=== PATIENT | female | born 1935 | race Caucasian/White ===

== ENCOUNTER 2016-10-05 09:12 | Outpatient (CLI) | payer MEDICARE, OTHER | END 2016-10-05 09:13 | disposition home or self-care (01) | DX: R10.9 Unspecified abdominal pain (principal) ==

== ENCOUNTER 2016-10-30 07:55 | Outpatient (CLI) | payer MEDICARE, OTHER | END 2016-10-30 07:56 | disposition home or self-care (01) | DX: N39.0 Urinary tract infection, site not specified (principal) ==

== ENCOUNTER 2018-10-24 15:48 | Emergency (ER) | payer MEDICARE, OTHER ==
[2018-10-24 16:54] LABS: BILIRUBIN,URINE NEGATIVE (NEGATIVE); GLUCOSE, URINE (UA) NEGATIVE (NEGATIVE); KETONES,URINE (UA) NEGATIVE (NEGATIVE); LEUKOCYTE ESTERASE, URINE MODERATE (NEGATIVE); NITRITE,URINE NEGATIVE (NEGATIVE); OCCULT BLOOD,URINE LARGE (NEGATIVE); PROTEIN,URINE TRACE mg/dL (NEGATIVE); UROBILINOGEN,URINE 0.2 (NORMAL) E.U./dL (NORMAL)
[2018-10-24 16:55] LABS: CLARITY,URINE HAZY (CLEAR)
[2018-10-24 17:02] LABS: RBC,URINE TNTC /HPF (0-5); SQUAMOUS EPITHELIAL CELL,UR NONE SEEN (<= Few)
[2018-10-24 17:03] LABS: BACTERIA,URINE Rare /HPF (None Seen); WBC CLUMPS,URINE PRESENT
[2018-10-24] MEDS ORDERED: cephALEXin 250 MG CAPSULE PO STA (17:42)
[2018-10-24] MEDS ORDERED: PHENAZOPYRIDINE 100 MG TABLET PO STA (17:42)
--- NOTE | 2018-10-24 17:44 | ED Physician Documentation ---
PD HPI FEMALE - Stated complaint Stated Complaint: FEMALE - Chief complaint Chief Complaint: Abd Pain - Additional information Additional information: 83-year-old female presents the emergency department with 3 days of increasing dysuria and suprapubic pain with urgency. The patient's Noticed blood with the episodes a urine. Symptoms have progressively worsened but the blood has mostly resolved. The patient denies fevers, flank pain, nausea, vomiting. Symptoms are described as moderate. No other associated symptoms. No relieving factors Review of Systems Constitutional: denies: Fever, Chills Eyes: denies: Discharge Ears: denies: Ear pain Nose: denies: Congestion Throat: denies: Sore throat Cardiac: denies: Chest pain / pressure GI: reports: Abdominal Pain (Suprapubic cramping with urination, otherwise no ongoing abdominal pain) : reports: Dysuria, Frequency, Hematuria Skin: denies: Rash Musculoskeletal: denies: Neck pain Neurologic: denies: Generalized weakness PD PAST MEDICAL HISTORY - Present Medications Home Medications: Ambulatory Orders Medication Instructions Recorded Confirmed Alendronate [Fosamax] 70 mg PO ONCE 10/24/18 10/24/18 Allopurinol 100 mg PO DAILY 10/24/18 10/24/18 Atenolol 50 mg PO DAILY 10/24/18 10/24/18 Cephalexin [Keflex] 500 mg PO BID #14 capsule 10/24/18 Clopidogrel [Plavix] 75 mg PO DAILY 10/24/18 10/24/18 Furosemide 40 mg PO DAILY 10/24/18 10/24/18 Levothyroxine Sodium [Synthroid] 25 mcg PO DAILY 10/24/18 10/24/18 Simvastatin 40 mg PO DAILY 10/24/18 10/24/18 Telmisartan [Micardis] 40 mg PO 10/24/18 - Allergies Allergies/Adverse Reactions: Allergies Allergy/AdvReac Type Severity Reaction Status Date / Time aspirin AdvReac Emesis Verified 10/24/18 16:13 PD ED PE NORMAL - General General: Alert and oriented X 3, No acute distress - HEENT HEENT: Atraumatic, PERRL, EOMI, Ears normal - Neck Neck: Supple, no meningeal sign - Cardiac Cardiac: RRR, Strong equal pulses - Abdomen Abdomen: Soft, Non tender - Back Back: No CVA TTP - Derm Derm: Normal color - Extremities Extremities: No deformity - Neuro Neuro: Alert and oriented X 3, Normal speech Results - Vitals Vitals: Vital Signs - 24 hr 10/24/18 10/24/18 16:07 16:10 Temperature 36.6 C 36.6 C Heart Rate 70 70 Respiratory 20 20 Rate Blood Pressure 143/75 H 143/75 H O2 Saturation 96 96 Oxygen O2 Source Room air - Labs Labs: Laboratory Tests 10/24/18 16:22 Urine Color YELLOW Urine Clarity HAZY Urine pH 6.0 Ur Specific Branscomb 1.015 Urine Protein TRACE Urine Glucose (UA) NEGATIVE Urine Ketones NEGATIVE Urine Occult Blood LARGE H Urine Nitrite NEGATIVE Urine Bilirubin NEGATIVE Urine Urobilinogen 0.2 (NORMAL) Ur Leukocyte Esterase MODERATE H Urine RBC TNTC H Urine WBC >25 H Urine WBC Clumps PRESENT Ur Squamous Epith Cells NONE SEEN Urine Bacteria Rare Ur Microscopic Review INDICATED Urine Culture Comments INDICATED PD MEDICAL DECISION MAKING - ED course ED course: The patient appears to have an acute urinary tract infection and her symptoms are consistent with a urinary tract infection. The patient will be given a course of an antibiotic. Given the patient's history of prior cancer I recommended follow-up with primary care for reevaluation and if her symptoms not improving she may need a referral to urology to further investigate her symptoms. The patient understands and agrees. I discussed warning signs and recommended returning for any worsening or any concerns Departure - Departure Disposition: 01 Home, Self Care Clinical Impression: Acute cystitis with hematuria Condition: Good Instructions: Hematuria Poss Causes, ED Hematuria, ED Infec Bladder Female Ch Follow-Up: Danielle Izaguirre DO [Primary Care Provider] - Within 1 week (Please follow-up with your primary care physician this coming week for recheck and reevaluation. Please ask her to repeat your urinalysis. If your symptoms are not improving you may need a referral to urology to further assess your symptoms) Prescriptions: Cephalexin [Keflex] 500 mg PO BID #14 capsule Comments: Please return to the emergency department immediately for any worsening or any concerns
[2018-10-24 17:56] VITALS: BP 138/72
== END 2018-10-24 17:54 | disposition home or self-care (01) ==
LOC: ED 15:48
DX: N30.01 Acute cystitis with hematuria (principal)
CPT/HCPCS: 81001; 87077; 87086; 87181; 99283; A9270; 81003

== ENCOUNTER 2018-11-28 08:00 | Outpatient (CLI) | payer MEDICARE, OTHER ==
[2018-11-28 18:48] LABS: BILIRUBIN,URINE NEGATIVE (NEGATIVE); GLUCOSE, URINE (UA) NEGATIVE (NEGATIVE); KETONES,URINE (UA) NEGATIVE (NEGATIVE); LEUKOCYTE ESTERASE, URINE MODERATE (NEGATIVE); NITRITE,URINE POSITIVE (NEGATIVE); OCCULT BLOOD,URINE LARGE (NEGATIVE); PROTEIN,URINE 100 mg/dL (NEGATIVE); UROBILINOGEN,URINE 0.2 (NORMAL) E.U./dL (NORMAL)
[2018-11-28 18:52] LABS: CLARITY,URINE CLOUDY (CLEAR)
[2018-11-28 19:04] LABS: BACTERIA,URINE Few /HPF (None Seen); EPITHELIAL CELLS,UR FEW Transitional /HPF (<= Few); SQUAMOUS EPITHELIAL CELL,UR FEW Squamous (<= Few)
== END 2018-11-28 23:59 | disposition home or self-care (01) ==
LOC: LAB.WCP 08:00
PROVIDERS: ATTEND Family Medicine
DX: R31.9 Hematuria, unspecified (principal)
CPT/HCPCS: 81001

== ENCOUNTER 2018-12-03 08:00 | Outpatient (CLI) | payer MEDICARE, OTHER | END 2018-12-03 23:59 | disposition home or self-care (01) | LOC: LAB.WCP 08:00 | PROVIDERS: ATTEND Family Medicine | DX: R31.9 Hematuria, unspecified (principal) | CPT/HCPCS: 87086 ==

== ENCOUNTER 2019-08-26 14:09 | Outpatient (CLI) | payer MEDICARE, OTHER ==
[2019-08-26 18:21] LABS: BASOPHILS # (AUTO) 0.1 10^3/uL (0.0-0.1); BASOPHILS % (AUTO) 0.8 %; EOSINOPHILS # (AUTO) 0.1 10^3/uL (0.0-0.7); EOSINOPHILS % (AUTO) 1.7 %; HGB - HEMOGLOBIN 13.4 g/dL (12.0-16.0); LYMPHOCYTES # (AUTO) 1.5 10^3/uL (1.5-3.5); LYMPHOCYTES % (AUTO) 21.3 %; MEAN CORPUSCULAR HEMOGLOBIN 31.3 pg (27.0-31.0); MEAN CORPUSCULAR HGB CONC 32.4 g/dL (32.0-36.0); MEAN CORPUSCULAR VOLUME 96.5 fL (81.0-99.0); MEAN PLATELET VOLUME 11.3 fL (7.9-10.8); MONOCYTES # (AUTO) 0.5 10^3/uL (0.0-1.0); MONOCYTES % (AUTO) 7.3 %; NEUTROPHILS # (AUTO) 4.9 10^3/uL (1.5-6.6); NEUTROPHILS % (AUTO) 68.1 %; PLT - PLATELET COUNT 184 10^3/uL (130-450); RED BLOOD COUNT 4.28 10^6/uL (4.20-5.40); RED CELL DISTRIBUTION WIDTH 15.2 % (12.0-15.0); WHITE BLOOD COUNT 7.2 x10^3/uL (4.8-10.8)
[2019-08-26 18:53] LABS: ALBUMIN 3.8 g/dL (3.2-5.5); ALBUMIN/GLOBULIN RATIO 1.1 (1.0-2.2); BILIRUBIN,TOTAL 0.6 mg/dL (0.2-1.0); CALCIUM 10.1 mg/dL (8.5-10.3); CREATININE 1.8 mg/dL (0.4-1.0); TOTAL PROTEIN 7.4 g/dL (6.7-8.2); URIC ACID 5.5 mg/dL (2.6-7.2)
[2019-08-26 19:09] LABS: HB2 TOTAL 13.3 g/dL; HEMOGLOBIN A1C 0.61 g/dL; HEMOGLOBIN A1C % 6.3 % (4.6-6.2)
== END 2019-08-26 23:59 | disposition home or self-care (01) ==
LOC: LAB.WCP 14:09
PROVIDERS: ATTEND Family Medicine
DX: E11.9 Type 2 diabetes mellitus without complications (principal); E89.0 Postprocedural hypothyroidism; M10.9 Gout, unspecified
CPT/HCPCS: 36415; 80053; 83036; 84439; 84481; 84550; 85025

== ENCOUNTER 2019-10-07 14:50 | Outpatient (CLI) | payer MEDICARE, OTHER ==
[2019-10-07 19:40] LABS: BILIRUBIN,URINE NEGATIVE (NEGATIVE); CLARITY,URINE CLEAR (CLEAR); GLUCOSE, URINE (UA) NEGATIVE (NEGATIVE); KETONES,URINE (UA) NEGATIVE (NEGATIVE); LEUKOCYTE ESTERASE, URINE LARGE (NEGATIVE); NITRITE,URINE POSITIVE (NEGATIVE); OCCULT BLOOD,URINE MODERATE (NEGATIVE); PROTEIN,URINE 100 mg/dL (NEGATIVE); UROBILINOGEN,URINE 0.2 (NORMAL) E.U./dL (NORMAL)
[2019-10-07 19:48] LABS: BACTERIA,URINE Many /HPF (None Seen); SQUAMOUS EPITHELIAL CELL,UR NONE SEEN (<= Few)
== END 2019-10-07 23:59 | disposition home or self-care (01) ==
LOC: LAB.WCP 14:50
PROVIDERS: ATTEND Family Medicine
DX: R31.9 Hematuria, unspecified (principal)
CPT/HCPCS: 81001; 81003; 87077; 87086; 87181

== ENCOUNTER 2019-10-28 07:00 | Outpatient (CLI) | payer MEDICARE, OTHER | END 2019-10-28 23:59 | disposition home or self-care (01) | LOC: LAB.R 07:00 | PROVIDERS: ATTEND Family Medicine | DX: N39.0 Urinary tract infection, site not specified (principal) | CPT/HCPCS: 87077; 87086; 87181 ==

== ENCOUNTER 2020-03-29 19:37 | Outpatient (CLI) | payer MEDICARE, OTHER | END 2020-03-29 19:38 | disposition critical access hospital (66) | LOC: EMS 19:37 | PROVIDERS: ATTEND Surgery | DX: R41.82 Altered mental status, unspecified (principal); K92.1 Melena; R53.1 Weakness | CPT/HCPCS: A0425; A0427 ==

== ENCOUNTER 2020-03-29 19:59 | Inpatient (IN) | payer MEDICARE, OTHER ==
--- NOTE | 2020-03-29 20:36 | ED Physician Documentation ---
PD HPI GI BLEED - Stated complaint Stated Complaint: GI BLEED - Chief complaint Chief Complaint: Abd Pain - History obtained from History obtained from: Patient, EMS - History of Present Illness Timing - onset: How many days ago (4) Timing - duration: Days Timing - details: Abrupt onset Pain level max: 0 Pain level now: 0 Associated symptoms: Black/tarry stool, Diarrhea Similar symptoms before: Has not had sx before Recently seen: Not recently seen - Additional information Additional information: BIBA. Patient c/o 4 days of diarrhea, "bloody stools" (cannot tell me if bright red or dark, but medics report significant amount dark, tarry stool on scene), "falling down". She is limited historian do to possible confusion (frequently provides tangential or even irrelevant answers to most questions). 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 - Present Medications Home Medications: Ambulatory Orders Medication Instructions Recorded Confirmed Alendronate [Fosamax] 70 mg PO ONCE 10/24/18 10/24/18 Cephalexin [Keflex] 500 mg PO BID #14 capsule 10/24/18 Clopidogrel [Plavix] 75 mg PO DAILY 10/24/18 10/24/18 Furosemide 40 mg PO DAILY 10/24/18 10/24/18 Levothyroxine Sodium [Synthroid] 25 mcg PO DAILY 10/24/18 10/24/18 Simvastatin 40 mg PO DAILY 10/24/18 10/24/18 Telmisartan [Micardis] 40 mg PO 10/24/18 allopurinoL [Allopurinol] 100 mg PO DAILY 10/24/18 10/24/18 atenoloL [Atenolol] 50 mg PO DAILY 10/24/18 10/24/18 - Allergies Allergies/Adverse Reactions: Allergies Allergy/AdvReac Type Severity Reaction Status Date / Time cephalexin Allergy Unknown Verified 10/27/18 12:32 citalopram [From Celexa] Allergy Unknown Verified 10/27/18 12:32 doxycycline Allergy Unknown Verified 10/27/18 12:32 fluticasone [From Flonase] Allergy Unknown Verified 10/27/18 12:32 meperidine [From Demerol] Allergy Unknown Verified 10/27/18 12:32 Penicillins Allergy Unknown Verified 10/27/18 12:32 Sulfa (Sulfonamide Allergy Unknown Verified 10/27/18 12:32 Antibiotics) aspirin AdvReac Emesis Verified 10/24/18 16:13 scotch broom Allergy Unknown Uncoded 10/27/18 12:32 - Social History Does the pt smoke?: No Smoking Status: Never smoker Does the pt drink ETOH?: No Does the pt have substance abuse?: No - Immunizations Immunizations are current?: Yes PD ED PE NORMAL - Vitals Vital signs reviewed: Yes - General General: Alert and oriented X 3 (answers appropriately to self, location, month. However, most answers to HPI questions are tangential or irrelevant to question), Well developed/nourished - HEENT HEENT: Moist mucous membranes, Other (pale conjunctiva) - Neck Neck: Supple, no meningeal sign - Cardiac Cardiac: RRR, No murmur - Respiratory Respiratory: No respiratory distress, Clear bilaterally - Abdomen Abdomen: Soft, Non tender - Back Back: No CVA TTP - Derm Derm: Other (pale) - Extremities Extremities: No edema Results - Vitals Vitals: Vital Signs - 24 hr 03/29/20 03/29/20 03/29/20 20:12 22:15 22:24 Temperature 36.2 C L 36.4 C L 36.6 C Heart Rate 91 91 95 Respiratory 12 18 13 Rate Blood Pressure 116/53 L 114/47 L 130/78 O2 Saturation 100 Oxygen O2 Source Room air - Labs Labs: Microbiology 03/29/20 21:30 Occult Blood - Final Stool Laboratory Tests 03/29/20 03/29/20 03/29/20 20:55 20:59 20:59 WBC 11.0 H RBC 1.54 L Hgb 5.0 L* Hct 15.2 L* MCV 98.7 MCH 32.5 H MCHC 32.9 RDW 15.4 H Plt Count 198 MPV 11.2 H Neut # (Auto) 9.7 H Lymph # (Auto) 0.7 L Jenkins # (Auto) 0.5 Eos # (Auto) 0.0 Baso # (Auto) 0.0 Absolute Nucleated RBC 0.15 Nucleated RBC % 1.4 PT 12.0 INR 1.1 APTT 24.3 L Sodium Potassium Chloride Carbon Dioxide Anion Gap BUN Creatinine Estimated GFR (MDRD) Glucose Calcium Total Bilirubin AST ALT Alkaline Phosphatase Ammonia Total Protein Albumin Globulin Albumin/Globulin Ratio Lipase Vitamin B12 Folate TSH Acetaminophen Blood Type B POSITIVE Blood Type Recheck Antibody Screen NEGATIVE Crossmatch IS Only See Detail 03/29/20 03/29/20 03/29/20 20:59 20:59 20:59 WBC RBC Hgb Hct MCV MCH MCHC RDW Plt Count MPV Neut # (Auto) Lymph # (Auto) Jenkins # (Auto) Eos # (Auto) Baso # (Auto) Absolute Nucleated RBC Nucleated RBC % PT INR APTT Sodium 134 L Potassium 4.4 Chloride 104 Carbon Dioxide 19 L Anion Gap 11.0 BUN 95 H* Creatinine 1.8 H Estimated GFR (MDRD) 27 L Glucose 153 H Calcium 8.7 Total Bilirubin 0.5 AST 13 ALT 12 Alkaline Phosphatase 38 L Ammonia < 10.0 Total Protein 5.5 L Albumin 2.9 L Globulin 2.6 Albumin/Globulin Ratio 1.1 Lipase 45 Vitamin B12 Folate TSH 0.37 Acetaminophen < 10 L Blood Type Blood Type Recheck Antibody Screen Crossmatch IS Only 03/29/20 03/29/20 20:59 21:32 WBC RBC Hgb Hct MCV MCH MCHC RDW Plt Count MPV Neut # (Auto) Lymph # (Auto) Jenkins # (Auto) Eos # (Auto) Baso # (Auto) Absolute Nucleated RBC Nucleated RBC % PT INR APTT Sodium Potassium Chloride Carbon Dioxide Anion Gap BUN Creatinine Estimated GFR (MDRD) Glucose Calcium Total Bilirubin AST ALT Alkaline Phosphatase Ammonia Total Protein Albumin Globulin Albumin/Globulin Ratio Lipase Vitamin B12 148 L Folate 11.31 TSH Acetaminophen Blood Type Blood Type Recheck B POSITIVE Antibody Screen Crossmatch IS Only - Rads (name of study) chest xray Radiology: Prelim report reviewed, See rad report PD MEDICAL DECISION MAKING - ED course Complexity details: reviewed results, re-evaluated patient, considered differential, d/w patient ED course: Profound anemia in setting of UGIB (dark, tarry stool that is guaiac (+)). D/W Dr. Sherwood, will admit for transfusions and further testing/treatment as indicated Departure - Departure Disposition: 66 [facility] DC/Xfer Clinical Impression: Anemia due to acute blood loss Condition: Stable Discharge Date/Time: 03/29/20 23:30
[2020-03-29 21:07] LABS: BASOPHILS % (AUTO) 0.2 %; EOSINOPHILS % (AUTO) 0.1 %; LYMPHOCYTES # (AUTO) 0.7 10^3/uL (1.5-3.5); LYMPHOCYTES % (AUTO) 5.9 %; MEAN CORPUSCULAR HEMOGLOBIN 32.5 pg (27.0-31.0); MEAN CORPUSCULAR HGB CONC 32.9 g/dL (32.0-36.0); MEAN CORPUSCULAR VOLUME 98.7 fL (81.0-99.0); MEAN PLATELET VOLUME 11.2 fL (7.9-10.8); MONOCYTES # (AUTO) 0.5 10^3/uL (0.0-1.0); MONOCYTES % (AUTO) 4.2 %; NEUTROPHILS # (AUTO) 9.7 10^3/uL (1.5-6.6); NEUTROPHILS % (AUTO) 88.2 %; PLT - PLATELET COUNT 198 10^3/uL (130-450); RED BLOOD COUNT 1.54 10^6/uL (4.20-5.40); RED CELL DISTRIBUTION WIDTH 15.4 % (12.0-15.0)
[2020-03-29 21:16] LABS: INR 1.1 (0.8-1.2)
[2020-03-29 21:24] LABS: PARTIAL THROMBOPLASTIN TIME 24.3 secs (24.9-33.3)
[2020-03-29 21:44] LABS: ACETAMINOPHEN < 10 ug/mL (10-30); ALBUMIN 2.9 g/dL (3.2-5.5); ALBUMIN/GLOBULIN RATIO 1.1 (1.0-2.2); ALKALINE PHOSPHATASE 38 IU/L (42-121); ALT ALANINE AMINOTRANSFERASE 12 IU/L (10-60); AST ASPARTATE AMINOTRANSFERASE 13 IU/L (10-42); BILIRUBIN,TOTAL 0.5 mg/dL (0.2-1.0); CALCIUM 8.7 mg/dL (8.5-10.3); CARBON DIOXIDE - CO2 19 mmol/L (21-32); CHLORIDE 104 mmol/L (101-111); CREATININE 1.8 mg/dL (0.4-1.0); GLUCOSE 153 mg/dL (70-100); LIPASE 45 U/L (22-51); SODIUM 134 mmol/L (135-145); TOTAL PROTEIN 5.5 g/dL (6.7-8.2)
[2020-03-29 21:47] LABS: BUN - BLOOD UREA NITROGEN 95 mg/dL (6-20)
--- NOTE | 2020-03-29 22:01 | XRAY Report ---
PROCEDURE: Chest 2 View X-Ray INDICATIONS: falls, generalized weakness TECHNIQUE: 2 view(s) of the chest. COMPARISON: None. FINDINGS: Surgical changes and devices: Clips are noted overlying the right axilla. Lungs and pleura: No pleural effusions or pneumothorax. Chronic interstitial changes are present. Mi nimal appearance of increased vascularity. Mediastinum: Mediastinal contours are normal. Heart size is normal. Bones and chest wall: No suspicious bony abnormalities. Soft tissues appear unremarkable. IMPRESSION: Minimal increased vascularity suggestive of edema. Reviewed by: Honey Galindo MD on 03/29/2020 9:59 PM PDT Approved by: Honey Galindo MD on 03/29/2020 9:59 PM PDT Station ID: [id number]
[2020-03-29] MEDS ORDERED: MORPHINE 2 MG/ML CARPUJECT IVP PRN (22:32)
[2020-03-29] MEDS ORDERED: ONDANSETRON 4 MG/2 ML VIAL IVP PRN (22:32)
[2020-03-29] MEDS ORDERED: ACETAMINOPHEN 325 MG TABLET PO PRN (22:32)
--- NOTE | 2020-03-29 22:44 | HISTORY & PHYSICAL EXAMINATION ---
Chief Complaint - Chief Complaint Chief Complaint: Neighbour called the ambulance History of Present Illness - Admitted From Admitted From:: Home - History Obtained From Records Reviewed: Yes History obtained from: Patient, ER Physician, EMR Exam Limitations: Patient is very poor historian. - History of Present Illness HPI Comment/Other: This is a 84-year-old female with a past medical history significant for hypertension, hypothyroidism, reported history of lung cancer and renal cancer, CKD stage IV who presents today from home after her neighbors reportedly called the ambulance to check on her. Patient is a very poor historian with tangential thoughts and it is difficult to obtain an accurate and detailed history. She tells me that she is here today because her neighbors want to check on her and therefore they called the ambulance. She is not sure why her neighbors were concerned about her. EMS reportedly found dark tarry stool all over the house as well as multiple soiled maxipads and had tarry stool. The patient reports that she believes she may have been bleeding since this past Saturday. She reports dark blood and some bright blood at times per rectum. She has some mild associated abdominal pain. She reports an episode of bloody emesis. She believes it may have been bright blood. She does not recall that she is on any blood thinners. She denies any alcohol use. She reports no NSAID use including aspirin due to side effects in the past which she cannot explain. She believes she may have had prior bleeding in the past. She tells me she believes she may have had colitis before. She reports fevers and chills. Denies any chest pain or dyspnea. She states she has been feeling dizzy and lightheaded and has been falling at home over the past few days. She does not feel confused at this time. She brought with her multiple medication bottles although some of these are as old as 2009. She cannot give a reason as to why she keeps old pill bottles. In the emergency department, she is found to be afebrile temperature of 36.2 C. Her heart rate was 91 and her blood pressure is 116/53. She was not tachypneic and saturating 100% on room air. Labs are significant for a hemoglobin of 5. Her INR is 1.1. Her BUN is elevated at 95 which is increased compared to her baseline in the 30s. Her creatinine is stable at 1.8 which is her baseline. Given the findings above, medicine was consulted for admission. I did discuss goals of care the patient and she has a POLST form which states she is a DNR limited interventions. She confirms today that she does not want CPR. History - Past Medical History Cardiovascular: reports: Hypertension Respiratory: reports: COPD Endocrine/Autoimmune: reports: HyPOthyroidism GI: reports: Other (Colitis?) : reports: Renal insuffiency MRSA Hx?: No Other Past Medical History: She reports a prior history of renal cancer. Her POLST form states she has a history of lung cancer. 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 She mentions her son has history of cataracts. She denies any cardiac history in the family. Living arrangement: At home Living Situation: Alone Social History Notes: She lives alone at home with her dog. She continues to smoke a couple of cigarettes a day and has been smoking for most of her life. She denies any alcohol use. Meds/Allgy - Home Medications Home Medications: Ambulatory Orders Medication Instructions Recorded Confirmed Alendronate [Fosamax] 70 mg PO ONCE 10/24/18 10/24/18 Cephalexin [Keflex] 500 mg PO BID #14 capsule 10/24/18 Clopidogrel [Plavix] 75 mg PO DAILY 10/24/18 10/24/18 Furosemide 40 mg PO DAILY 10/24/18 10/24/18 Levothyroxine Sodium [Synthroid] 25 mcg PO DAILY 10/24/18 10/24/18 Simvastatin 40 mg PO DAILY 10/24/18 10/24/18 Telmisartan [Micardis] 40 mg PO 10/24/18 allopurinoL [Allopurinol] 100 mg PO DAILY 10/24/18 10/24/18 atenoloL [Atenolol] 50 mg PO DAILY 10/24/18 10/24/18 - Allergies Allergies/Adverse Reactions: Allergies Allergy/AdvReac Type Severity Reaction Status Date / Time cephalexin Allergy Unknown Verified 10/27/18 12:32 citalopram [From Celexa] Allergy Unknown Verified 10/27/18 12:32 doxycycline Allergy Unknown Verified 10/27/18 12:32 fluticasone [From Flonase] Allergy Unknown Verified 10/27/18 12:32 meperidine [From Demerol] Allergy Unknown Verified 10/27/18 12:32 Penicillins Allergy Unknown Verified 10/27/18 12:32 Sulfa (Sulfonamide Allergy Unknown Verified 10/27/18 12:32 Antibiotics) aspirin AdvReac Emesis Verified 10/24/18 16:13 scotch broom Allergy Unknown Uncoded 10/27/18 12:32 Review of Systems - Constitutional Constitutional: reports: Fever, Chills - Ears, Nose & Throat Ears, Nose & Throat: denies: Nasal discharge, Nasal congestion - Cardiovascular Cariovascular: reports: Edema, Lightheadedness. denies: Chest pain, Exertional dyspnea, Decr. exercise tolerance - Respiratory Respiratory: denies: Cough, SOB at rest, SOB with exertion - Gastrointestinal Gastrointestinal: reports: Abdominal pain, Change in bowel habits, Rectal bleeding, Black stools, Bloody stools, Nausea, Vomiting, Pawan blood emesis - Genitourinary Genitourinary: reports: Hematuria - Neurological Neurological: reports: Dizziness. denies: Focal weakness - All Other Systems All Other Systems: reports: Other (You have systems is limited as the patient is a poor historian and does not answer questions directly.) Prior Level of Functionality: She lives alone and appears to be independent with her ADL's. Exam - Vital Signs Reviewed Vital Signs: Yes Vital Signs: Vital Signs x48h Temp Pulse Resp BP Pulse Ox 03/29/20 22:32 36.2 C L 95 14 117/58 L 03/29/20 22:24 36.6 C 95 13 130/78 03/29/20 22:15 36.4 C L 91 18 114/47 L 03/29/20 20:12 36.2 C L 91 12 116/53 L 100 - Physical Exam General Appearance: positive: No acute distress Eyes Bilateral: positive: Normal inspection, Other (Pale conjunctivae.) ENT: positive: ENT inspection nml Neck: positive: Nml inspection Respiratory: positive: No respiratory distress. negative: Wheezes, Rales Cardiovascular: positive: Regular rate & rhythm, No murmur. negative: Tachycardia, Bradycardia, Systolic murmur Abdomen: positive: Nml bowel sounds, Tenderness (Mild diffuse tenderness.), Other (Prior abdominal incision noted.). negative: Non-tender, Guarding, Rebound Skin: positive: Warm, Dry, Pallor Extremities: positive: Full ROM, Pedal edema (Trace pitting edema in the bilateral lower extremities.) Neurologic/Psychiatric: positive: Oriented x3, Motor nml. negative: Disoriented to person, Disoriented to place, Disoriented to time Conclusion/Plan - Problem List (1) Upper GI bleed Conclusion/Plan: Suspect her bleeding is likely an upper GI bleed given her BUN is significantly elevated and she was having dark tarry stools. The etiology is not clear as she reports no NSAID or alcohol use. We will start her empirically on Protonix IV. N.p.o. at midnight for EGD. Avoid NSAIDs. General surgery consult for endoscopy. (2) Anemia due to acute blood loss Conclusion/Plan: This is secondary to upper GI bleed. She presents with a hemoglobin of 5 but she is hemodynamically stable. Her INR is within normal limits as well as her platelet count. We will transfuse her 3 units of packed red blood cells and then recheck her hemoglobin. SCDs for VT prophylaxis. She may need diuretics in between each blood transfusion we will monitor closely for fluid overload. (3) Hypertension Conclusion/Plan: We will hold her home antihypertensives for the time being given she is normotensive and she has ongoing bleeding. We will resume when clinically indicated. (4) CKD (chronic kidney disease), stage IV Conclusion/Plan: Her renal function is currently at baseline with a creatinine of 1.8. Her BUN is elevated likely due to the upper GI bleed. We will continue to monitor her renal function. (5) Fall Conclusion/Plan: This is likely secondary to her anemia and ongoing blood loss. We will have PT evaluate her once her bleeding stabilizes. We will not obtain a CT of the head given there are no focal deficits on exam. Qualifiers: Encounter type: initial encounter Qualified Code(s): W19.XXXA - Unspecified fall, initial encounter (6) Cognitive impairment Conclusion/Plan: She is alert and oriented but does appear to have some mild cognitive impairment. I do wonder if she may have dementia as she is forgetful at times and is very tangential with her answers. There are no focal deficits on exam that would warrant a CT of the head at this time. We will check a B12 and folate. Will consult social work given the patient lives alone and will likely need caregivers. (7) Hypothyroidism Conclusion/Plan: We will continue her home Synthroid once the dose is confirmed. (8) History of renal carcinoma Conclusion/Plan: She reports a history of renal cancer. We will review her outpatient records for further information. - Lab Results Lab results reviewed: Yes Fish Bones: 03/29/20 20:59 03/29/20 20:59 - Diagnostic Imaging Results Diagnostic Imaging Results: positive: Final report reviewed
[2020-03-29] MEDS ORDERED: LACTATED RINGERS 1,000 ML IV SCH (23:00)
[2020-03-29 23:24] LABS: FOLATE 11.31 ng/mL (5.90 - >24.8)
[2020-03-29] MEDS: SODIUM CHLORIDE FLUSH 0.9% 10 ML SYRINGE IVP SCH (23:48)
[2020-03-30] MEDS: SODIUM CHLORIDE FLUSH 0.9% 10 ML SYRINGE IVP PRN ×3 (03:28→22:14)
[2020-03-30] MEDS: PANTOPRAZOLE 40 MG VIAL IVP SCH ×3 (03:28→22:14)
[2020-03-30] MEDS: SODIUM CHLORIDE FLUSH 0.9% 10 ML SYRINGE IVP SCH ×2 (03:28→17:54)
--- NOTE | 2020-03-30 03:48 | HISTORY & PHYSICAL EXAMINATION ---
Chief Complaint - Chief Complaint Chief Complaint: weakness and bloody stool GI Bleed Admit Template - History Obtained From Records Reviewed: Old records reviewed History obtained from: Patient, Other (admitting md) - History of Present Illness Bleeding quality: reports: Black, tarry stool Context-bleeding started w/: reports: Bowel movement PMH/PSH - Past Medical History Cardiovascular: positive: Hypertension Respiratory: positive: COPD Neuro: positive: Dementia Endocrine/Autoimmune: positive: HyPOthyroidism GI: positive: Other (Colitis?) : positive: Renal insuffiency Psych: positive: None Derm: positive: None MRSA Hx?: No Other Past Medical History: She reports a prior history of renal cancer. Her POLST form states she has a history of lung cancer. 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, Mastectomy HEENT: positive: Cataracts Social & Family Hx - Social History Does the pt smoke?: No Smoking Status: Never smoker Does the pt drink ETOH?: No Does the pt have substance abuse?: No Meds/Allgy - Home Medications Home Medications: Ambulatory Orders Medication Instructions Recorded Confirmed Alendronate [Fosamax] 70 mg PO ONCE 10/24/18 10/24/18 Cephalexin [Keflex] 500 mg PO BID #14 capsule 10/24/18 Clopidogrel [Plavix] 75 mg PO DAILY 10/24/18 10/24/18 Furosemide 40 mg PO DAILY 10/24/18 10/24/18 Levothyroxine Sodium [Synthroid] 25 mcg PO DAILY 10/24/18 10/24/18 Simvastatin 40 mg PO DAILY 10/24/18 10/24/18 Telmisartan [Micardis] 40 mg PO 10/24/18 allopurinoL [Allopurinol] 100 mg PO DAILY 10/24/18 10/24/18 atenoloL [Atenolol] 50 mg PO DAILY 10/24/18 10/24/18 - Allergies Allergies/Adverse Reactions: Allergies Allergy/AdvReac Type Severity Reaction Status Date / Time cephalexin Allergy Unknown Verified 10/27/18 12:32 citalopram [From Celexa] Allergy Unknown Verified 10/27/18 12:32 doxycycline Allergy Unknown Verified 10/27/18 12:32 fluticasone [From Flonase] Allergy Unknown Verified 10/27/18 12:32 meperidine [From Demerol] Allergy Unknown Verified 10/27/18 12:32 Penicillins Allergy Unknown Verified 10/27/18 12:32 Sulfa (Sulfonamide Allergy Unknown Verified 10/27/18 12:32 Antibiotics) aspirin AdvReac Emesis Verified 10/24/18 16:13 scotch broom Allergy Unknown Uncoded 10/27/18 12:32 Exam - Vital Signs Vital Signs: Vital Signs x48h Temp Pulse Pulse Resp BP BP Pulse Ox 03/30/20 03:42 37.1 C 84 18 129/50 L 03/30/20 03:32 37.1 C 87 18 129/50 L 97 03/30/20 03:16 37.1 C 85 18 126/56 L 03/30/20 00:35 36.6 C 87 18 114/55 L 03/30/20 00:25 36.9 C 89 18 129/51 L 03/30/20 00:20 36.3 C L 86 18 119/53 L 03/29/20 23:46 36.4 C L 85 18 125/50 L 96 03/29/20 23:43 36.4 C L 86 18 123/52 L 03/29/20 23:26 36.9 C 88 19 114/58 L 100 03/29/20 23:20 37.0 C 88 21 112/60 03/29/20 22:32 36.2 C L 95 14 117/58 L 03/29/20 22:24 36.6 C 95 13 130/78 03/29/20 22:15 36.4 C L 91 18 114/47 L 03/29/20 20:12 36.2 C L 91 12 116/53 L 100 - Physical Exam General Appearance: positive: No acute distress Eyes Bilateral: positive: Normal inspection ENT: positive: No signs of dehydration Neck: positive: No JVD Respiratory: positive: No respiratory distress Abdomen: positive: Non-tender, No distention Results - Lab Results Fish Bones: 03/29/20 20:59 03/29/20 20:59 Other Lab Results: Lab Results x24hrs 03/29/20 03/29/20 03/29/20 Range/Units 21:32 20:59 20:59 WBC (4.8-10.8) x10^3/uL RBC (4.20-5.40) 10^6/uL Hgb (12.0-16.0) g/dL Hct (37.0-47.0) % MCV (81.0-99.0) fL MCH (27.0-31.0) pg MCHC (32.0-36.0) g/dL RDW (12.0-15.0) % Plt Count (130-450) 10^3/uL MPV (7.9-10.8) fL Neut # (Auto) (1.5-6.6) 10^3/uL Lymph # (Auto) (1.5-3.5) 10^3/uL [place] # (Auto) (0.0-1.0) 10^3/uL Eos # (Auto) (0.0-0.7) 10^3/uL Baso # (Auto) (0.0-0.1) 10^3/uL Absolute Nucleated RBC x10^3/uL Nucleated RBC % /100WBC PT (9.9-12.6) secs INR (0.8-1.2) APTT (24.9-33.3) secs Sodium (135-145) mmol/L Potassium (3.5-5.0) mmol/L Chloride (101-111) mmol/L Carbon Dioxide (21-32) mmol/L Anion Gap (6-13) BUN (6-20) mg/dL Creatinine (0.4-1.0) mg/dL Estimated GFR (MDRD) (>89) Glucose (70-100) mg/dL Calcium (8.5-10.3) mg/dL Total Bilirubin (0.2-1.0) mg/dL AST (10-42) IU/L ALT (10-60) IU/L Alkaline Phosphatase (42-121) IU/L Ammonia < 10.0 (7-35) umol/L Total Protein (6.7-8.2) g/dL Albumin (3.2-5.5) g/dL Globulin (2.1-4.2) g/dL Albumin/Globulin Ratio (1.0-2.2) Lipase (22-51) U/L Vitamin B12 148 L (180-914) pg/mL Folate 11.31 (5.90 - >24.8) ng/mL TSH (0.34-5.60) uIU/mL Acetaminophen (10-30) ug/mL Blood Type Blood Type Recheck B POSITIVE Antibody Screen Crossmatch IS Only 03/29/20 03/29/20 03/29/20 Range/Units 20:59 20:59 20:59 WBC (4.8-10.8) x10^3/uL RBC (4.20-5.40) 10^6/uL Hgb (12.0-16.0) g/dL Hct (37.0-47.0) % MCV (81.0-99.0) fL MCH (27.0-31.0) pg MCHC (32.0-36.0) g/dL RDW (12.0-15.0) % Plt Count (130-450) 10^3/uL MPV (7.9-10.8) fL Neut # (Auto) (1.5-6.6) 10^3/uL Lymph # (Auto) (1.5-3.5) 10^3/uL [place] # (Auto) (0.0-1.0) 10^3/uL Eos # (Auto) (0.0-0.7) 10^3/uL Baso # (Auto) (0.0-0.1) 10^3/uL Absolute Nucleated RBC x10^3/uL Nucleated RBC % /100WBC PT 12.0 (9.9-12.6) secs INR 1.1 (0.8-1.2) APTT 24.3 L (24.9-33.3) secs Sodium 134 L (135-145) mmol/L Potassium 4.4 (3.5-5.0) mmol/L Chloride 104 (101-111) mmol/L Carbon Dioxide 19 L (21-32) mmol/L Anion Gap 11.0 (6-13) BUN 95 H* (6-20) mg/dL Creatinine 1.8 H (0.4-1.0) mg/dL Estimated GFR (MDRD) 27 L (>89) Glucose 153 H (70-100) mg/dL Calcium 8.7 (8.5-10.3) mg/dL Total Bilirubin 0.5 (0.2-1.0) mg/dL AST 13 (10-42) IU/L ALT 12 (10-60) IU/L Alkaline Phosphatase 38 L (42-121) IU/L Ammonia (7-35) umol/L Total Protein 5.5 L (6.7-8.2) g/dL Albumin 2.9 L (3.2-5.5) g/dL Globulin 2.6 (2.1-4.2) g/dL Albumin/Globulin Ratio 1.1 (1.0-2.2) Lipase 45 (22-51) U/L Vitamin B12 (180-914) pg/mL Folate (5.90 - >24.8) ng/mL TSH 0.37 (0.34-5.60) uIU/mL Acetaminophen < 10 L (10-30) ug/mL Blood Type Blood Type Recheck Antibody Screen Crossmatch IS Only 03/29/20 03/29/20 Range/Units 20:59 20:55 WBC 11.0 H (4.8-10.8) x10^3/uL RBC 1.54 L (4.20-5.40) 10^6/uL Hgb 5.0 L* (12.0-16.0) g/dL Hct 15.2 L* (37.0-47.0) % MCV 98.7 (81.0-99.0) fL MCH 32.5 H (27.0-31.0) pg MCHC 32.9 (32.0-36.0) g/dL RDW 15.4 H (12.0-15.0) % Plt Count 198 (130-450) 10^3/uL MPV 11.2 H (7.9-10.8) fL Neut # (Auto) 9.7 H (1.5-6.6) 10^3/uL Lymph # (Auto) 0.7 L (1.5-3.5) 10^3/uL [place] # (Auto) 0.5 (0.0-1.0) 10^3/uL Eos # (Auto) 0.0 (0.0-0.7) 10^3/uL Baso # (Auto) 0.0 (0.0-0.1) 10^3/uL Absolute Nucleated RBC 0.15 x10^3/uL Nucleated RBC % 1.4 /100WBC PT (9.9-12.6) secs INR (0.8-1.2) APTT (24.9-33.3) secs Sodium (135-145) mmol/L Potassium (3.5-5.0) mmol/L Chloride (101-111) mmol/L Carbon Dioxide (21-32) mmol/L Anion Gap (6-13) BUN (6-20) mg/dL Creatinine (0.4-1.0) mg/dL Estimated GFR (MDRD) (>89) Glucose (70-100) mg/dL Calcium (8.5-10.3) mg/dL Total Bilirubin (0.2-1.0) mg/dL AST (10-42) IU/L ALT (10-60) IU/L Alkaline Phosphatase (42-121) IU/L Ammonia (7-35) umol/L Total Protein (6.7-8.2) g/dL Albumin (3.2-5.5) g/dL Globulin (2.1-4.2) g/dL Albumin/Globulin Ratio (1.0-2.2) Lipase (22-51) U/L Vitamin B12 (180-914) pg/mL Folate (5.90 - >24.8) ng/mL TSH (0.34-5.60) uIU/mL Acetaminophen (10-30) ug/mL Blood Type B POSITIVE Blood Type Recheck Antibody Screen NEGATIVE Crossmatch IS Only See Detail Impression/Plan - Problem List Problem List: GI bleed with 2 small dark bloody bms since admit. No distress. History confusion and poor historian for years. She had a colonoscopy in 2016. Confusion was noted then. Tubular adenomas were removed. Diverticulosis was noted. Hct 08/2019 was normal. Plan EGD when room available.
[2020-03-30 07:21] LABS: BASOPHILS % (AUTO) 0.1 %; EOSINOPHILS % (AUTO) 0.1 %; HGB - HEMOGLOBIN 8.9 g/dL (12.0-16.0); LYMPHOCYTES % (AUTO) 11.7 %; MEAN CORPUSCULAR HEMOGLOBIN 28.6 pg (27.0-31.0); MEAN CORPUSCULAR HGB CONC 32.5 g/dL (32.0-36.0); MEAN CORPUSCULAR VOLUME 88.1 fL (81.0-99.0); MEAN PLATELET VOLUME 11.4 fL (7.9-10.8); MONOCYTES # (AUTO) 0.7 10^3/uL (0.0-1.0); MONOCYTES % (AUTO) 8.3 %; NEUTROPHILS # (AUTO) 6.8 10^3/uL (1.5-6.6); NEUTROPHILS % (AUTO) 78.2 %; PLT - PLATELET COUNT 178 10^3/uL (130-450); RED BLOOD COUNT 3.11 10^6/uL (4.20-5.40); WHITE BLOOD COUNT 8.7 x10^3/uL (4.8-10.8)
[2020-03-30] MEDS ORDERED: CYANOCOBALAMIN 1,000 MCG/ML VIAL IM ONE (07:31)
[2020-03-30 07:41] LABS: ABSOLUTE RETICS # AUTO 0.11 10^6/uL (0.020-0.110); RED BLOOD COUNT 3.06 10^6/uL (4.20-5.40)
[2020-03-30 07:50] LABS: CALCIUM 8.7 mg/dL (8.5-10.3); CREATININE 1.6 mg/dL (0.4-1.0); MAGNESIUM 2.8 mg/dL (1.7-2.8); PHOSPHORUS 3.8 mg/dL (2.5-4.6)
[2020-03-30 07:57] LABS: % IRON SATURATION 48 % (20-50); IRON 134 ug/dL (28-170); TOTAL IRON BINDING CAPACITY 277 ug/dL (250-450); TRANSFERRIN 198 mg/dL (192-382)
[2020-03-30 08:28] LABS: FERRITIN 222.5 ng/mL (11.0-306.8)
[2020-03-30] MEDS: SODIUM CHLORIDE 0.9% 1,000 ML IV SCH ×2 (09:14→22:14)
[2020-03-30] MEDS ORDERED: LIDO GARGLE 30 ML BOTTLE ONE (10:59)
--- NOTE | 2020-03-30 11:38 | PROVIDER PROGRESS NOTE ---
Assessment/Plan - Problem List (1) Upper GI bleed Assessment/Plan: it seems patient has upper GI bleeding, Patient BUN slightly increased 99. Hold all patient blood thinner. GI surgeon will have EGD for patient on today. Continue intravenous Protonix twice daily (2) Anemia due to acute blood loss Conclusion/Plan: Patient had a 3 units blood transfusion last night, patient hemoglobin was 8.9 now. continue H&H to monitor patient hemoglobin. iron study does not show patient has iron deficiency, but vitamin B12 is deficiency, we will give IM vitamin B 12 (3) Hypertension Slightly elevated blood pressure, we will resume home blood pressure medicine, continue vital signs monitor (4) CKD (chronic kidney disease), stage IV Improved, creatinine 1.4 from 1.8 on yesterday. Patient present dehydration clinically, patient also ask for drinking of water. Patient was given 83 cc/h intravenous normal saline. (5) Fall Conclusion/Plan: Patient denies any injury from his fall. This is likely secondary to her anemia and ongoing blood loss. We will have PT/OT evaluate and treat her once her bleeding stabilizes. 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 but She is alert and oriented. Patient does not have focal neuro deficit. We will consult with social work and planning for safety discharge (7) Hypothyroidism Conclusion/Plan: TSH is normal, will continue home Synthroid (8) History of renal carcinoma Conclusion/Plan: Patient reported she has renal cancer and to have surgery before but she did not remember which year she had. We will have EGD today evaluation for patient of upper GI bleeding, we will follow-up - Current Meds Current Meds: Current Medications Generic Name Dose Route Start Last Admin Trade Name Freq PRN Reason Stop Dose Admin Sodium Chloride 1,000 mls @ 83.333 mls/hr 03/30/20 09:00 03/30/20 09:14 Normal Saline 0.9% IV 03/31/20 08:59 83.333 mls/hr .Q12H [facility] Administration Pantoprazole Sodium 40 mg 03/29/20 23:00 03/30/20 09:11 Protonix IVP 40 mg BID [facility] Administration Sodium Chloride 10 ml 03/29/20 22:32 03/30/20 09:11 Normal Saline Flush 0.9% IVP 10 ml PRN PRN Administration NEEDED PER PROVIDER ORDERS Sodium Chloride 10 ml 03/30/20 01:00 03/30/20 03:28 Normal Saline Flush 0.9% IVP 10 ml 0100,0900,1700 [facility] Administration - Lab Result Fish Bone Diagrams: 03/30/20 07:10 03/30/20 07:10 - Additional Planning My Orders: My Active Orders 03/30/20 09:00 Sodium Chloride 0.9% [Normal Saline 0.9%] 1,000 ml IV 83.333 mls/hr Subjective - Subjective Patient Reports: Feeling Better Objective Vital Signs: Vital Signs - 24 hr 03/29/20 03/29/20 03/29/20 20:12 22:15 22:24 Temperature 36.2 C L 36.4 C L 36.6 C Heart Rate 91 91 95 Heart Rate [ Radial] Respiratory 12 18 13 Rate Blood Pressure 116/53 L 114/47 L 130/78 Blood Pressure [Right Brachial artery] O2 Saturation 100 03/29/20 03/29/20 03/29/20 22:32 23:20 23:26 Temperature 36.2 C L 37.0 C 36.9 C Heart Rate 95 88 Heart Rate [ 88 Radial] Respiratory 14 21 19 Rate Blood Pressure 117/58 L 112/60 Blood Pressure 114/58 L [Right Brachial artery] O2 Saturation 100 03/29/20 03/29/20 03/30/20 23:43 23:46 00:20 Temperature 36.4 C L 36.4 C L 36.3 C L Heart Rate 86 86 Heart Rate [ 85 Radial] Respiratory 18 18 18 Rate Blood Pressure 123/52 L 119/53 L Blood Pressure 125/50 L [Right Brachial artery] O2 Saturation 96 03/30/20 03/30/20 03/30/20 00:25 00:35 03:16 Temperature 36.9 C 36.6 C 37.1 C Heart Rate 89 87 85 Heart Rate [ Radial] Respiratory 18 18 18 Rate Blood Pressure 129/51 L 114/55 L 126/56 L Blood Pressure [Right Brachial artery] O2 Saturation 03/30/20 03/30/20 03/30/20 03:32 03:42 03:57 Temperature 37.1 C 37.1 C 37 C Heart Rate 84 86 Heart Rate [ 87 Radial] Respiratory 18 18 18 Rate Blood Pressure 129/50 L 123/57 L Blood Pressure 129/50 L [Right Brachial artery] O2 Saturation 97 03/30/20 03/30/20 03/30/20 04:12 06:40 07:43 Temperature 37.0 C 36.7 C 37.1 C Heart Rate 87 Heart Rate [ 84 80 Radial] Respiratory 18 95 H 19 Rate Blood Pressure 102/83 H Blood Pressure 131/57 H 128/55 L [Right Brachial artery] O2 Saturation 98 03/30/20 11:11 Temperature 36.6 C Heart Rate Heart Rate [ 86 Radial] Respiratory 17 Rate Blood Pressure Blood Pressure 141/71 H [Right Brachial artery] O2 Saturation 98 Oxygen O2 Source Room air I&O (Last 24 Hrs): Intake and Output Totals x24h 03/28/20 03/29/20 03/30/20 23:59 23:59 23:59 Intake Total 350 1688 Output Total 300 Balance 350 1388 General: Alert, Oriented x3, No acute distress HEENT: Atraumatic Neck: Supple Lymphatic: no adenopathy Neuro: Alert, Non Focal, Oriented Times 3 Cardiovascular: Regular rate, Normal S1, Normal S2 Respiratory: Chest non-tender, No respiratory distress, Breath sounds nml Abdomen: Normal bowel sounds, Soft, No tenderness Extremities: Normal pulses - Results Results: Laboratory Results WBC 8.7 x10^3/uL (4.8-10.8) 03/30/20 07:10 RBC 3.06 10^6/uL (4.20-5.40) L 03/30/20 07:10 RBC 3.11 10^6/uL (4.20-5.40) L 03/30/20 07:10 Hgb 8.9 g/dL (12.0-16.0) L 03/30/20 07:10 Hct 27.4 % (37.0-47.0) L 03/30/20 07:10 MCV 88.1 fL (81.0-99.0) 03/30/20 07:10 MCH 28.6 pg (27.0-31.0) 03/30/20 07:10 MCHC 32.5 g/dL (32.0-36.0) 03/30/20 07:10 RDW 18.0 % (12.0-15.0) H 03/30/20 07:10 Plt Count 178 10^3/uL (130-450) 03/30/20 07:10 MPV 11.4 fL (7.9-10.8) H 03/30/20 07:10 Reticulocyte % (Auto) 3.58 % (0.5-2.3) H 03/30/20 07:10 Neut # (Auto) 6.8 10^3/uL (1.5-6.6) H 03/30/20 07:10 Lymph # (Auto) 1.0 10^3/uL (1.5-3.5) L 03/30/20 07:10 [place] # (Auto) 0.7 10^3/uL (0.0-1.0) 03/30/20 07:10 Eos # (Auto) 0.0 10^3/uL (0.0-0.7) 03/30/20 07:10 Baso # (Auto) 0.0 10^3/uL (0.0-0.1) 03/30/20 07:10 Absolute Nucleated RBC 0.19 x10^3/uL 03/30/20 07:10 Nucleated RBC % 2.2 /100WBC 03/30/20 07:10 Absolute Retic 0.110 10^6/uL (0.020-0.110) 03/30/20 07:10 PT 12.0 secs (9.9-12.6) 03/29/20 20:59 INR 1.1 (0.8-1.2) 03/29/20 20:59 APTT 24.3 secs (24.9-33.3) L 03/29/20 20:59 Sodium 140 mmol/L (135-145) 03/30/20 07:10 Potassium 4.5 mmol/L (3.5-5.0) 03/30/20 07:10 Chloride 111 mmol/L (101-111) 03/30/20 07:10 Carbon Dioxide 20 mmol/L (21-32) L 03/30/20 07:10 Anion Gap 9.0 (6-13) 03/30/20 07:10 BUN 99 mg/dL (6-20) H* 03/30/20 07:10 Creatinine 1.6 mg/dL (0.4-1.0) H 03/30/20 07:10 Estimated GFR (MDRD) 31 (>89) L 03/30/20 07:10 Glucose 110 mg/dL (70-100) H 03/30/20 07:10 Calcium 8.7 mg/dL (8.5-10.3) 03/30/20 07:10 Phosphorus 3.8 mg/dL (2.5-4.6) 03/30/20 07:10 Magnesium 2.8 mg/dL (1.7-2.8) 03/30/20 07:10 Iron 134 ug/dL (28-170) 03/30/20 07:10 TIBC 277 ug/dL (250-450) 03/30/20 07:10 % Saturation 48 % (20-50) 03/30/20 07:10 Transferrin 198 mg/dL (192-382) 03/30/20 07:10 Ferritin 222.5 ng/mL (11.0-306.8) 03/30/20 07:10 Total Bilirubin 0.5 mg/dL (0.2-1.0) 03/29/20 20:59 AST 13 IU/L (10-42) 03/29/20 20:59 ALT 12 IU/L (10-60) 03/29/20 20:59 Alkaline Phosphatase 38 IU/L (42-121) L 03/29/20 20:59 Ammonia < 10.0 umol/L (7-35) 03/29/20 20:59 Lactate Dehydrogenase 133 IU/L (91-225) 03/30/20 07:10 Total Protein 5.5 g/dL (6.7-8.2) L 03/29/20 20:59 Albumin 2.9 g/dL (3.2-5.5) L 03/29/20 20:59 Globulin 2.6 g/dL (2.1-4.2) 03/29/20 20:59 Albumin/Globulin Ratio 1.1 (1.0-2.2) 03/29/20 20:59 Lipase 45 U/L (22-51) 03/29/20 20:59 Vitamin B12 150 pg/mL (180-914) L 03/30/20 07:10 Folate 11.31 ng/mL (5.90 - >24.8) 03/29/20 20:59 TSH 0.48 uIU/mL (0.34-5.60) 03/30/20 07:10 Acetaminophen < 10 ug/mL (10-30) L 03/29/20 20:59 Blood Type B POSITIVE 03/29/20 20:55 Blood Type Recheck B POSITIVE 03/29/20 21:32 Antibody Screen NEGATIVE 03/29/20 20:55 Crossmatch IS Only See Detail 03/29/20 20:55 Sepsis Event Note (H) - Evaluation Current Stage of Sepsis: Ruled out ABX Reporting Has patient been on IV antibiotics over the past 48 hours?: No Current Medications - Current Medications Current Medications: Active Medications Acetaminophen (Tylenol) 650 mg PO Q4HR PRN PRN Reason: Pain 1 to 4 Atenolol (Tenormin) 50 mg PO DAILY [facility] Diazepam (Valium) 5 mg PO BID PRN PRN Reason: Anxiety Sodium Chloride (Normal Saline 0.9%) 1,000 mls @ 83.333 mls/hr IV .Q12H [facility] Stop: 03/31/20 08:59 Last Admin: 03/30/20 09:14 Dose: 83.333 mls/hr Documented by: Levothyroxine Sodium (Synthroid) 112 mcg PO DAILY [facility] Losartan Potassium (Cozaar) 50 mg PO DAILY [facility] Morphine Sulfate (Morphine (Carpuject)) 2 mg IVP Q2HR PRN PRN Reason: Pain 8 to 10 Ondansetron HCl (Zofran Inj) 4 mg IVP Q6HR PRN PRN Reason: Nausea / Vomiting Pantoprazole Sodium (Protonix) 40 mg IVP BID [facility] Last Admin: 03/30/20 09:11 Dose: 40 mg Documented by: Sodium Chloride (Normal Saline Flush 0.9%) 10 ml IVP PRN PRN PRN Reason: NEEDED PER PROVIDER ORDERS Last Admin: 03/30/20 09:11 Dose: 10 ml Documented by: Sodium Chloride (Normal Saline Flush 0.9%) 10 ml IVP 0100,0900,1700 [facility] Last Admin: 03/30/20 03:28 Dose: 10 ml Documented by: Alendronate [Fosamax] 70 mg PO Q7D 10/24/18 Clopidogrel [Plavix] 75 mg PO DAILY 10/24/18 Furosemide 40 mg PO DAILY 10/24/18 Simvastatin 40 mg PO QPM 10/24/18 Telmisartan [Micardis] 40 mg PO DAILY 10/24/18 allopurinoL [Allopurinol] 200 mg PO DAILY 10/24/18 atenoloL [Atenolol] 50 mg PO DAILY 10/24/18 Acetaminophen with Codeine [Acetaminophen-Cod #3 Tablet] 1 tab PO BID PRN 03/30/20 Levothyroxine Sodium [Synthroid] 112 mcg PO DAILY 03/30/20 Trospium Chloride 03/30/20 diazePAM [Diazepam] 5 mg PO BID PRN 03/30/20
[2020-03-30] MEDS ORDERED: diazePAM 5 MG TABLET PO PRN (11:39)
--- NOTE | 2020-03-30 11:49 | PHARMACY PROGRESS NOTE ---
- Best Possible Medication History Admit Date and Time: 03/29/20 7182 Processed by: Pharmacy Medication History completed: Yes Patient Interview: Completed Secondary Source(s): Pharmacy records, Insurance records (PATIENT INTERVIEWED BY LEAF [employer]ER) As the person ultimately responsible for medication therapy, providers are able to order a medication from an existing home medication list in [facility] via the "Reconcile Routine" prior to Confirmation of that medication by pit crew support worker. Such practice is discouraged except when the physician, in their clinical judgment, deems that a medical need exists for a medication without regard to previous use.
[2020-03-30] MEDS ORDERED: EPINEPHrine 1 MG/ML AMP ONE (11:58)
[2020-03-30] MEDS ORDERED: THROMBIN (BOVINE) 5,000 UNIT VIAL TOP ONE (11:59)
[2020-03-30] MEDS ORDERED: LIDO GARGLE 30 ML BOTTLE PO ONE (12:00)
[2020-03-30] MEDS ORDERED: SODIUM CHLORIDE 0.9% 0 ML ONE (12:03)
[2020-03-30] MEDS ORDERED: LACTATED RINGERS 1,000 ML IV ONE (12:15)
[2020-03-30] MEDS ORDERED: BENZOCAINE/TETRACAINE/BUTAMBEN 20 GM TOP ONE (12:17)
[2020-03-30] MEDS: atenoloL 25 MG TABLET PO SCH (13:39)
[2020-03-30] MEDS: LOSARTAN 50 MG TABLET PO SCH (13:40)
--- NOTE | 2020-03-30 14:18 | ANESTHESIA ---
Pre-Anesthesia VS, & Labs - Diagnosis GI bleed, anemia - Procedure EGD w/biopsy Vital Signs: Temp Pulse Resp BP Pulse Ox 36.5 C 86 17 106/46 L 100 03/30/20 12:50 03/30/20 12:50 03/30/20 12:50 03/30/20 12:50 03/30/20 12:50 Height 5 ft 3 in Weight (kg) 54.5 kg Body Mass Index 21.2 - NPO >8 hours - Is Patient ?: No - Lab Results Current Lab Results: Laboratory Tests 03/30/20 07:10: TSH 0.48 03/30/20 07:10: Lactate Dehydrogenase 133 03/30/20 07:10: Ferritin 222.5, Vitamin B12 150 L 03/30/20 07:10: Iron 134, TIBC 277, % Saturation 48, Transferrin 198 03/30/20 07:10: RBC 3.06 L, Reticulocyte % (Auto) 3.58 H, Absolute Retic 0.110 03/30/20 07:10: Sodium 140, Potassium 4.5, Chloride 111, Carbon Dioxide 20 L, Anion Gap 9.0, BUN 99 H*, Creatinine 1.6 H, Estimated GFR (MDRD) 31 L, Glucose 110 H, Calcium 8.7, Phosphorus 3.8, Magnesium 2.8 03/30/20 07:10: WBC 8.7, RBC 3.11 L, Hgb 8.9 L, Hct 27.4 L, MCV 88.1, MCH 28.6, MCHC 32.5, RDW 18.0 H, Plt Count 178, MPV 11.4 H, Neut # (Auto) 6.8 H, Lymph # (Auto) 1.0 L, [place] # (Auto) 0.7, Eos # (Auto) 0.0, Baso # (Auto) 0.0, Absolute Nucleated RBC 0.19, Nucleated RBC % 2.2 03/29/20 21:32: Blood Type Recheck B POSITIVE 03/29/20 20:59: Vitamin B12 148 L, Folate 11.31 03/29/20 20:59: Ammonia < 10.0 03/29/20 20:59: TSH 0.37 03/29/20 20:59: Sodium 134 L, Potassium 4.4, Chloride 104, Carbon Dioxide 19 L, Anion Gap 11.0, BUN 95 H*, Creatinine 1.8 H, Estimated GFR (MDRD) 27 L, Glucose 153 H, Calcium 8.7, Total Bilirubin 0.5, AST 13, ALT 12, Alkaline Phosphatase 38 L, Total Protein 5.5 L, Albumin 2.9 L, Globulin 2.6, Albumin/Globulin Ratio 1.1, Lipase 45, Acetaminophen < 10 L 03/29/20 20:59: PT 12.0, INR 1.1, APTT 24.3 L 03/29/20 20:59: WBC 11.0 H, RBC 1.54 L, Hgb 5.0 L*, Hct 15.2 L*, MCV 98.7, MCH 32.5 H, MCHC 32.9, RDW 15.4 H, Plt Count 198, MPV 11.2 H, Neut # (Auto) 9.7 H, Lymph # (Auto) 0.7 L, [place] # (Auto) 0.5, Eos # (Auto) 0.0, Baso # (Auto) 0.0, Absolute Nucleated RBC 0.15, Nucleated RBC % 1.4 03/29/20 20:55: Blood Type B POSITIVE, Antibody Screen NEGATIVE, Crossmatch IS Only See Detail Lab results reviewed: Yes Fish Bones: 03/30/20 07:10 03/30/20 07:10 Home Medications and Allergies Home Medications: Ambulatory Orders Acetaminophen with Codeine [Acetaminophen-Cod #3 Tablet] 1 tab PO BID PRN 03/30/20 Levothyroxine Sodium [Synthroid] 112 mcg PO DAILY 03/30/20 Trospium Chloride 03/30/20 diazePAM [Diazepam] 5 mg PO BID PRN 03/30/20 Active Medications Acetaminophen (Tylenol) 650 mg PO Q4HR PRN PRN Reason: Pain 1 to 4 Atenolol (Tenormin) 50 mg PO DAILY [facility] Last Admin: 03/30/20 13:39 Dose: Not Given Documented by: Diazepam (Valium) 5 mg PO BID PRN PRN Reason: Anxiety Sodium Chloride (Normal Saline 0.9%) 1,000 mls @ 83.333 mls/hr IV .Q12H [facility] Stop: 03/31/20 08:59 Last Infusion: 03/30/20 12:54 Dose: 83.333 mls/hr Documented by: Levothyroxine Sodium (Synthroid) 112 mcg PO DAILY [facility] Losartan Potassium (Cozaar) 50 mg PO DAILY PENDING SALE TO [facility] Last Admin: 03/30/20 13:40 Dose: Not Given Documented by: Morphine Sulfate (Morphine (Carpuject)) 2 mg IVP Q2HR PRN PRN Reason: Pain 8 to 10 Ondansetron HCl (Zofran Inj) 4 mg IVP Q6HR PRN PRN Reason: Nausea / Vomiting Pantoprazole Sodium (Protonix) 40 mg IVP BID PENDING SALE TO [facility] Last Admin: 03/30/20 09:11 Dose: 40 mg Documented by: Sodium Chloride (Normal Saline Flush 0.9%) 10 ml IVP PRN PRN PRN Reason: NEEDED PER PROVIDER ORDERS Last Admin: 03/30/20 09:11 Dose: 10 ml Documented by: Sodium Chloride (Normal Saline Flush 0.9%) 10 ml IVP 0100,0900,1700 PENDING SALE TO [facility] Last Admin: 03/30/20 03:28 Dose: 10 ml Documented by: Alendronate [Fosamax] 70 mg PO Q7D 10/24/18 Clopidogrel [Plavix] 75 mg PO DAILY 10/24/18 Furosemide 40 mg PO DAILY 10/24/18 Simvastatin 40 mg PO QPM 10/24/18 Telmisartan [Micardis] 40 mg PO DAILY 10/24/18 allopurinoL [Allopurinol] 200 mg PO DAILY 10/24/18 atenoloL [Atenolol] 50 mg PO DAILY 10/24/18 Acetaminophen with Codeine [Acetaminophen-Cod #3 Tablet] 1 tab PO BID PRN 03/30/20 Levothyroxine Sodium [Synthroid] 112 mcg PO DAILY 03/30/20 Trospium Chloride 03/30/20 diazePAM [Diazepam] 5 mg PO BID PRN 03/30/20 Allergies/Adverse Reactions: Allergies Allergy/AdvReac Type Severity Reaction Status Date / Time cephalexin Allergy Unknown Verified 10/27/18 12:32 citalopram [From Celexa] Allergy Unknown Verified 10/27/18 12:32 doxycycline Allergy Unknown Verified 10/27/18 12:32 fluticasone [From Flonase] Allergy Unknown Verified 10/27/18 12:32 meperidine [From Demerol] Allergy Unknown Verified 10/27/18 12:32 Penicillins Allergy Unknown Verified 10/27/18 12:32 Sulfa (Sulfonamide Allergy Unknown Verified 10/27/18 12:32 Antibiotics) aspirin AdvReac Emesis Verified 10/24/18 16:13 scotch broom Allergy Unknown Uncoded 10/27/18 12:32 Anes History & Medical History - Anesthetic History Anesthesia Complications: reports: No previous complications Family history of Anesthesia Complications: Denies Family history of Malignant Hyperthermia: Denies - Medical History Cardiovascular: reports: Hypertension Pulmonary: reports: COPD Gastrointestinal: reports: Other (Colitis?) Urinary: reports: Renal insuffiency Neuro: reports: Dementia Endocrine/Autoimmune: reports: HyPOthyroidism Blood Disorders: reports: None Skin: reports: None Smoking Status: Never smoker Other Past Medical History: She reports a prior history of renal cancer. Her POLST form states she has a history of lung cancer. - Surgical History General: Hiatal hernia repair Eyes Ears Nose Throat (EENT): Cataracts Gynecologic: Hysterectomy, Mastectomy Exam General: Alert, Oriented x3, Cooperative Dental: Dentures full Upper, Dentures full Lower Mouth Opening: Greater than 4 Fingerbreadths Neck Mobility: Normal Mallampati classification: I Thyromental Distance: greater than 6 cm Respiratory: Lungs clear, Normal breath sounds, No respiratory distress Cardiovascular: Regular rate Neurological: Normal speech Mental/Cognitive Status: Alert/Oriented X3, Normal for patient, Lethargic (very tired per pt) Cognitive Status: Within normal limits Plan Anesthesia Type: MAC Consent for Procedure(s) Verified and Reviewed: Yes Code Status: Attempt Resuscitation ASA classification: 2-Mild systemic disease Is this case an emergency?: Yes
[2020-03-30 23:14] LABS: HGB - HEMOGLOBIN 7.6 g/dL (12.0-16.0)
[2020-03-31] MEDS: SODIUM CHLORIDE FLUSH 0.9% 10 ML SYRINGE IVP SCH ×3 (00:16→18:22)
[2020-03-31 05:28] LABS: BASOPHILS % (AUTO) 0.3 %; EOSINOPHILS % (AUTO) 0.3 %; HGB - HEMOGLOBIN 7.3 g/dL (12.0-16.0); LYMPHOCYTES # (AUTO) 1.1 10^3/uL (1.5-3.5); LYMPHOCYTES % (AUTO) 15.5 %; MEAN CORPUSCULAR HGB CONC 32.9 g/dL (32.0-36.0); MEAN CORPUSCULAR VOLUME 88.1 fL (81.0-99.0); MEAN PLATELET VOLUME 10.4 fL (7.9-10.8); MONOCYTES # (AUTO) 0.6 10^3/uL (0.0-1.0); MONOCYTES % (AUTO) 8.2 %; NEUTROPHILS % (AUTO) 71.1 %; PLT - PLATELET COUNT 173 10^3/uL (130-450); RED BLOOD COUNT 2.52 10^6/uL (4.20-5.40); RED CELL DISTRIBUTION WIDTH 19.7 % (12.0-15.0)
[2020-03-31 05:37] LABS: CALCIUM 8.3 mg/dL (8.5-10.3); MAGNESIUM 2.5 mg/dL (1.7-2.8); PHOSPHORUS 1.9 mg/dL (2.5-4.6)
[2020-03-31] MEDS: NEUTRA-PHOS 250 MG TABLET PO SCH ×3 (08:38→17:25)
[2020-03-31] MEDS: atenoloL 25 MG TABLET PO SCH (08:39)
[2020-03-31] MEDS: LEVOTHYROXINE 112 MCG TABLET PO SCH (08:40)
[2020-03-31] MEDS: LOSARTAN 50 MG TABLET PO SCH (08:40)
[2020-03-31] MEDS: PANTOPRAZOLE 40 MG VIAL IVP SCH ×2 (08:40→22:11)
[2020-03-31] MEDS ORDERED: TELMISARTAN 40 MG PO SCH (09:00)
[2020-03-31] MEDS ORDERED: fentaNYL 100 MCG/2 ML VIAL IVP ONE (09:33)
[2020-03-31] MEDS ORDERED: PROPOFOL 200 MG/20 ML VIAL IVP ONE (09:33)
[2020-03-31] MEDS: SODIUM CHLORIDE 0.9% 1,000 ML IV SCH (10:04)
[2020-03-31 11:17] LABS: HGB - HEMOGLOBIN 7.2 g/dL (12.0-16.0)
--- NOTE | 2020-03-31 14:29 | PROVIDER PROGRESS NOTE ---
Subjective - Prog Note Date Prog Note Date: 03/31/20 - Subjective Pt reports feeling: Improved Subjective: Patient has still some forgetful and easily distracted to different the talk topic and attention. OT's assess of pt's cognitive is , mild cognitive impairment, and mild dementia. I discussed the patient for the treatment plan, patient still want discharge to home not [facility]ci facility. I Also call patient's relative Inderjit [phone], renal social worker give me the phone, Updated patient's medical condition and Cognitive assessment as the above. I will also talk with surgeon Dr. Hudson about the care plan and the patient's drop of hemo globin. Patient hemoglobin from 9.0 to 7.6, to 7.3 and to 7.2. HCT is slight better to 22.5. Surgeon advised patient does not need colonoscopy. he stated patient had a colonoscopy about 4 years ago with detected diverticulosis, no other finding. he recommended overnight watch for the patient, continue check H&H. he state pt had some blood in her stomach when she had a EGD on yesterday. Patient had a small bowel movement with dark stool which is likely from her residence of blood. His BUN is down to 71 from 99. Current Medications - Current Medications Current Medications: Active Medications Acetaminophen (Tylenol) 650 mg PO Q4HR PRN PRN Reason: Pain 1 to 4 Atenolol (Tenormin) 50 mg PO DAILY [facility] Last Admin: 03/31/20 08:39 Dose: 50 mg Documented by: Cyanocobalamin (Vitamin B-12) 500 mcg PO DAILY [facility] Diazepam (Valium) 5 mg PO BID PRN PRN Reason: Anxiety Sodium Chloride (Normal Saline 0.9%) 1,000 mls @ 75 mls/hr IV .[id number] [facility] Stop: 04/01/20 10:39 Last Admin: 03/31/20 10:04 Dose: 75 mls/hr Documented by: Levothyroxine Sodium (Synthroid) 112 mcg PO DAILY [facility] Last Admin: 03/31/20 08:40 Dose: 112 mcg Documented by: Losartan Potassium (Cozaar) 50 mg PO DAILY [facility] Last Admin: 03/31/20 08:40 Dose: 50 mg Documented by: Morphine Sulfate (Morphine (Carpuject)) 2 mg IVP Q2HR PRN PRN Reason: Pain 8 to 10 Multivitamins/Minerals (Theragran M) 1 tab PO DAILYWM [facility] Last Admin: 03/31/20 14:46 Dose: 1 tab Documented by: Ondansetron HCl (Zofran Inj) 4 mg IVP Q6HR PRN PRN Reason: Nausea / Vomiting Pantoprazole Sodium (Protonix) 40 mg IVP BID [facility] Last Admin: 03/31/20 08:40 Dose: 40 mg Documented by: Sodium Chloride (Normal Saline Flush 0.9%) 10 ml IVP PRN PRN PRN Reason: NEEDED PER PROVIDER ORDERS Last Admin: 03/30/20 22:14 Dose: 10 ml Documented by: Sodium Chloride (Normal Saline Flush 0.9%) 10 ml IVP 0100,0900,1700 [facility] Last Admin: 03/31/20 08:41 Dose: 10 ml Documented by: Sodium Phosphate (K-Phos Neutral) 250 mg PO TIDWM [facility] Last Admin: 03/31/20 14:12 Dose: 250 mg Documented by: Alendronate [Fosamax] 70 mg PO Q7D 10/24/18 Clopidogrel [Plavix] 75 mg PO DAILY 10/24/18 Furosemide 40 mg PO DAILY 10/24/18 Simvastatin 40 mg PO QPM 10/24/18 Telmisartan [Micardis] 40 mg PO DAILY 10/24/18 allopurinoL [Allopurinol] 200 mg PO DAILY 10/24/18 atenoloL [Atenolol] 50 mg PO DAILY 10/24/18 Acetaminophen with Codeine [Acetaminophen-Cod #3 Tablet] 1 tab PO BID PRN 03/30/20 Levothyroxine Sodium [Synthroid] 112 mcg PO DAILY 03/30/20 Trospium Chloride 03/30/20 diazePAM [Diazepam] 5 mg PO BID PRN 03/30/20 Objective - Vital Signs/Intake & Output Vital Signs: Vital Signs x48h Temp Pulse Resp BP Pulse Ox 03/31/20 13:21 36.4 C L 64 18 115/53 L 100 03/31/20 08:22 36.6 C 76 20 123/62 99 Intake & Output: Intake & Output 03/28/20 03/29/20 03/30/20 03/31/20 23:59 23:59 23:59 23:59 Intake Total 350 3330.219 1647.910 Output Total 1750 950 Balance 350 1580.219 697.910 - Objective General Appearance: positive: No acute distress, Alert. negative: Lethargic Eyes Bilateral: positive: Normal inspection, PERRL, No lid inflammation ENT: positive: ENT inspection nml, No signs of dehydration. negative: Purulent nasal drainage Neck: positive: Nml inspection, Thyroid nml, Trachea midline. negative: Thyromegaly, Stiff neck, Tracheal deviation Respiratory: positive: Chest non-tender, No respiratory distress, Breath sounds nml. negative: Wheezes, Rales, Rhonchi Cardiovascular: positive: No murmur, No gallop, Irregularly irregular. negative: Tachycardia, Bradycardia, Systolic murmur, Diastolic murmur Peripheral Pulses: 2+ Radial (R), 2+ Radial (L) Abdomen: positive: Non-tender, No organomegaly, Nml bowel sounds, No distention. negative: Tenderness, Guarding, Rebound Back: positive: Nml inspection. negative: CVA tenderness (R), CVA tenderness (L) Skin: positive: Color nml, No rash, Warm, Dry. negative: Cyanosis, Diaphoresis, Pallor Extremities: positive: Non-tender, Full ROM, Nml appearance. negative: Calf tenderness, Karli's sign/cords Neurologic/Psychiatric: positive: Oriented x3, Motor nml, Sensation nml. negative: Weakness, Sensory loss, Facial droop, Slurred/abnml speech - Lab Results Fish Bones: 03/31/20 11:12 03/31/20 05:15 Other Labs: Lab Results x24hrs 03/31/20 03/31/20 03/31/20 Range/Units 11:12 05:15 05:15 WBC 7.0 (4.8-10.8) x10^3/uL RBC 2.52 L (4.20-5.40) 10^6/uL Hgb 7.2 L 7.3 L (12.0-16.0) g/dL Hct 22.5 L 22.2 L (37.0-47.0) % MCV 88.1 (81.0-99.0) fL MCH 29.0 (27.0-31.0) pg MCHC 32.9 (32.0-36.0) g/dL RDW 19.7 H (12.0-15.0) % Plt Count 173 (130-450) 10^3/uL MPV 10.4 (7.9-10.8) fL Neut # (Auto) 5.0 (1.5-6.6) 10^3/uL Lymph # (Auto) 1.1 L (1.5-3.5) 10^3/uL Clinch # (Auto) 0.6 (0.0-1.0) 10^3/uL Eos # (Auto) 0.0 (0.0-0.7) 10^3/uL Baso # (Auto) 0.0 (0.0-0.1) 10^3/uL Absolute Nucleated RBC 0.10 x10^3/uL Nucleated RBC % 1.4 /100WBC Sodium 141 (135-145) mmol/L Potassium 4.1 (3.5-5.0) mmol/L Chloride 116 H (101-111) mmol/L Carbon Dioxide 21 (21-32) mmol/L Anion Gap 4.0 L (6-13) BUN 71 H (6-20) mg/dL Creatinine 1.0 (0.4-1.0) mg/dL Estimated GFR (MDRD) 53 L (>89) Glucose 103 H (70-100) mg/dL Calcium 8.3 L (8.5-10.3) mg/dL Phosphorus 1.9 L (2.5-4.6) mg/dL Magnesium 2.5 (1.7-2.8) mg/dL 03/30/20 03/30/20 Range/Units 23:04 14:50 WBC (4.8-10.8) x10^3/uL RBC (4.20-5.40) 10^6/uL Hgb 7.6 L 9.0 L (12.0-16.0) g/dL Hct 23.3 L 26.8 L (37.0-47.0) % MCV (81.0-99.0) fL MCH (27.0-31.0) pg MCHC (32.0-36.0) g/dL RDW (12.0-15.0) % Plt Count (130-450) 10^3/uL MPV (7.9-10.8) fL Neut # (Auto) (1.5-6.6) 10^3/uL Lymph # (Auto) (1.5-3.5) 10^3/uL Clinch # (Auto) (0.0-1.0) 10^3/uL Eos # (Auto) (0.0-0.7) 10^3/uL Baso # (Auto) (0.0-0.1) 10^3/uL Absolute Nucleated RBC x10^3/uL Nucleated RBC % /100WBC Sodium (135-145) mmol/L Potassium (3.5-5.0) mmol/L Chloride (101-111) mmol/L Carbon Dioxide (21-32) mmol/L Anion Gap (6-13) BUN (6-20) mg/dL Creatinine (0.4-1.0) mg/dL Estimated GFR (MDRD) (>89) Glucose (70-100) mg/dL Calcium (8.5-10.3) mg/dL Phosphorus (2.5-4.6) mg/dL Magnesium (1.7-2.8) mg/dL ABX Reporting Has patient been on IV antibiotics over the past 48 hours?: No Sepsis Event Note (H) - Evaluation Current Stage of Sepsis: Ruled out Assessment/Plan - Problem List (1) Upper GI bleed Impression: Patient hemoglobin is dropped 7.2. HCT is slight increase. Patient has small bowel movement with dark stool. Surgeon suggestion it is likely from his previous blood residuals in the stomach. Patient was found a small gastric ulcers in the stomach. Patient is asymptomatic for his low hemoglobin, patient walk with physical therapist in the nursing station without shortness of breathing or dizziness. Surgeon did not think patient needed colonoscopy now.Patient had a colonoscopy about 4 years ago Without significant finding. 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 Patient had a type screening in 1 days ago. (2) Anemia due to acute blood loss Conclusion/Plan: Patient had a hemoglobin of 7.2, we will continue H&H to monitor patient. the pattern of Hemoglobin trending down seems more less. Unclear why her hemoglobin still continue to drop.Surgeon suggest we will continue monitor patient overnight (3) Hypertension Slightly elevated blood pressure, we will resume home blood pressure medicine, continue vital signs monitor (4) CKD (chronic kidney disease), stage IV Correlate improved, creatinine is 1.01 today. Continue gentle IV hydration to the patient, continue ear mold laboratory technician (5) Fall Conclusion/Plan: Physical therapist and occupational therapist recommendation patient d/c to SNF, but the patient declined and that she want to go home. Updated cognitive assessment and D/C plan information to Inderjit, Patient's relative, (renal social worker ask me update), We will recommend patient go to SNF but patient declined. Patient denies any injury from his fall. This is likely secondary to her anemia and ongoing blood loss. We will have PT/OT evaluate and treat her once her bleeding stabilizes. (6) Cognitive impairment Conclusion/Plan: OT assess the patient for cognitive impairment, score is 21 out of 30, Mild cognitive impairment and mild dementia. Update to Inderjit, pt's relative. Patient did show some congenitally impair and frequently shift the topic she was talking. but She is alert and oriented. Patient does not have focal neuro deficit. We will consult with social work and planning for safety discharge (7) Hypothyroidism Conclusion/Plan: TSH is normal, will continue home Synthroid (8) History of renal carcinoma Conclusion/Plan: Patient reported she has renal cancer and to have surgery before but she did not remember which year she had. We will have EGD today evaluation for patient of upper GI bleeding, we will follow-up
[2020-03-31] MEDS: MULTIVITAMIN W/MINERALS TABLET PO SCH (14:46)
[2020-03-31] MEDS: CYANOCOBALAMIN 500 MCG TABLET PO SCH (17:24)
[2020-03-31 20:37] LABS: HGB - HEMOGLOBIN 7.3 g/dL (12.0-16.0)
[2020-03-31] MEDS: SODIUM CHLORIDE FLUSH 0.9% 10 ML SYRINGE IVP PRN (22:11)
[2020-04-01] MEDS: SODIUM CHLORIDE 0.9% 1,000 ML IV SCH (00:22)
[2020-04-01] MEDS: SODIUM CHLORIDE FLUSH 0.9% 10 ML SYRINGE IVP SCH ×2 (00:40→09:03)
[2020-04-01 05:02] LABS: BASOPHILS % (AUTO) 0.3 %; EOSINOPHILS # (AUTO) 0.1 10^3/uL (0.0-0.7); EOSINOPHILS % (AUTO) 1.4 %; LYMPHOCYTES # (AUTO) 1.2 10^3/uL (1.5-3.5); MEAN CORPUSCULAR HEMOGLOBIN 29.4 pg (27.0-31.0); MEAN CORPUSCULAR HGB CONC 32.7 g/dL (32.0-36.0); MEAN CORPUSCULAR VOLUME 89.9 fL (81.0-99.0); MEAN PLATELET VOLUME 10.5 fL (7.9-10.8); MONOCYTES # (AUTO) 0.5 10^3/uL (0.0-1.0); MONOCYTES % (AUTO) 8.1 %; NEUTROPHILS # (AUTO) 4.3 10^3/uL (1.5-6.6); NEUTROPHILS % (AUTO) 66.7 %; PLT - PLATELET COUNT 164 10^3/uL (130-450); RED BLOOD COUNT 2.38 10^6/uL (4.20-5.40); RED CELL DISTRIBUTION WIDTH 20.4 % (12.0-15.0); WHITE BLOOD COUNT 6.4 x10^3/uL (4.8-10.8)
[2020-04-01 05:18] LABS: CALCIUM 7.9 mg/dL (8.5-10.3); CREATININE 0.9 mg/dL (0.4-1.0); MAGNESIUM 2.2 mg/dL (1.7-2.8); PHOSPHORUS 2.6 mg/dL (2.5-4.6)
[2020-04-01 05:40] LABS: PLATELET ESTIMATE, MANUAL NORMAL (130-450,000) (NORMAL); PLATELET MORPHOLOGY NORMAL APPEARANCE (NORMAL)
[2020-04-01] MEDS: LEVOTHYROXINE 112 MCG TABLET PO SCH (09:02)
[2020-04-01] MEDS: MULTIVITAMIN W/MINERALS TABLET PO SCH (09:02)
[2020-04-01] MEDS: LOSARTAN 50 MG TABLET PO SCH (09:02)
[2020-04-01] MEDS: CYANOCOBALAMIN 500 MCG TABLET PO SCH (09:02)
[2020-04-01] MEDS: atenoloL 25 MG TABLET PO SCH (09:02)
[2020-04-01] MEDS: PANTOPRAZOLE 40 MG VIAL IVP SCH (09:03)
[2020-04-01 12:13] LABS: HGB - HEMOGLOBIN 8.9 g/dL (12.0-16.0)
--- NOTE | 2020-04-01 14:04 | Discharge Plan ---
"Discharge Plan for SNF / [facility] - Discharge Plan And Transition Orders Problem Reviewed?: Yes Disposition: 03 SNF DC/Xfer Condition: Stable Allergies and Adverse Reactions: Allergies Allergy/AdvReac Type Severity Reaction Status Date / Time cephalexin Allergy Unknown Verified 10/27/18 12:32 citalopram [From Celexa] Allergy Unknown Verified 10/27/18 12:32 doxycycline Allergy Unknown Verified 10/27/18 12:32 fluticasone [From Flonase] Allergy Unknown Verified 10/27/18 12:32 meperidine [From Demerol] Allergy Unknown Verified 10/27/18 12:32 Penicillins Allergy Unknown Verified 10/27/18 12:32 Sulfa (Sulfonamide Allergy Unknown Verified 10/27/18 12:32 Antibiotics) aspirin AdvReac Emesis Verified 10/24/18 16:13 scotch broom Allergy Unknown Uncoded 10/27/18 12:32 Health Concerns: upper GI bleeding Plan of Treatment: pt was found to have small gastric ulcer in EGD and GI bleed. pt is prescribed omeprazole. pt had 4 unit of blood transfusion in hospital. Pt had no bowel movement on today, it is likely pt's GI bleed was stopped, surgeon discharged pt as well. pt's home Plavix is hold now because of GI bleeding. advise pt have CBC in 2-3 days in SNF and continue monitor if pt has GI bleed and resume Plavix in appropriate time. Care Goals: continue PT/OT and stabilization and improvement of pt's medical conditions. Assessment: discussed with pt about the care plan, pt understood and agreed. - SNF / [facility] Transition Orders Admit to (Facility): [facility] Under the care of (Name): medical provider of [facility] Discharge Diagnosis: upper GI bleeding, HTN, CKD, fall, dementia, hypothyroidism, hx of renal ca rcinoma Medicare Certification Statement: I certify that [facility] care is medically necessary on a continuing basis for any of the conditions for which she/he is receiving care during hospitalization. Notify PCP of admission and forward orders to primary provider for signature. Weight on admission and: Daily Call PCP immediately if weight increases by: 2 kg Other Notification Orders: Call PCP immediately if patient develops dyspnea, chest pain/tightness or edema. House Bowel Program: Yes Additional Bowel Program Orders: If no BM after 2 days, nurse may give M.O.M. 30ml PO PRN and/or ducolax Supp 1 CO and/or SAMUEL 250mg P.O., and/or senna 1-2 tabs PO. On day 3 nurse may give repeat above order until residents constipation is resolved. Annual Influenza Vaccine (between May 10 and December 07): Yes Two-step PPD per [facility] [phone] or approved exception documents: Yes Treatments & Other Orders: pt was found to have small gastric ulcer in EGD and GI bleed. pt is prescribed omeprazole. pt had 4 unit of blood transfusion in hospital. Pt had no bowel movement on today, it is likely pt's GI bleed was stopped, surgeon discharged pt as well. pt's home Plavix is hold now because of GI bleeding. advise pt have CBC in 2-3 days in SNF and continue monitor if pt has GI bleed and resume Plavix in appropriate time. Medication Orders: PLEASE REFER TO THE DISCHARGE MEDICATION LIST. Insulin Orders?: No - Medications New Prescriptions: Omeprazole 40 mg PO BID #30 capsule.dr - Diet Type: Geriatric Texture: Dysphagia mech Liquids: Thin May have monthly special meal: Yes - Therapies | Activity Therapy: Evaluation | Treat if indicated: Speech, PT, OT Rehabilitation Potential: Maximize functional status Activity: Activity as Tolerated"
--- NOTE | 2020-04-01 14:32 | DISCHARGE SUMMARY ---
Discharge Summary Admit Date: 03/29/20 Discharge Date: 04/01/20 Discharging Provider: Abrahan Magaña Primary Care Provider: Dr. Sultana Izaguirre Condition at Discharge: Stable Discharge Disposition: 03 SNF DC/Xfer Discharge Facility [facility]: [facility] - DIAGNOSES Discharge Diagnoses with Status of Each Condition: (1) Upper GI bleed stable and likely stopped. Patient had a EGD done in the hospital which patient was found to have a small gastro ulcers and no active bleeding But blood was found in in the gastric ulcers area. Biopsy was done in the procedure. Patient had no bowel movement on today.Patient hemoglobin is in the stable track. And his BUN is significantly trended down. It indicated patient has no acute bleeding. Patient had 4 units of blood transfusion hospital, patient is a prescript PPI for discharge, patient is advised to check CBC in the 2 to 3 days to monitor patient hemoglobin and continue monitor patient if bleeding, patient's Plavix is on hold Because of GI bleed. Follow-up with patient's medical provider to resume Plavix when Clinically it is appropriate. (2) Anemia due to acute blood loss Stable, patient has 8.9 hemoglobin. patient is advised to check CBC in the 2 to 3 days to monitor patient hemoglobin and continue monitor patient if bleeding. (3) Hypertension stable, continue home meds (4) CKD (chronic kidney disease), stage IV improved significantly. keep pt hydration. (5) Fall stable, Patient had physical therapist and occupational therapist evaluation and treatment, patient was recommended to SNF. Discharge to SNF for continuing of training and prevention of fall (6) Cognitive impairment Patient was consulted with OT for cognitive impairment. patient present mild cognitive impairment and mild dementia, this information was discussed with patient's DPOA (7) Hypothyroidism stable (8) History of renal carcinoma stable, Advised patient continue follow-up with her oncologist. - HPI History of Present Illness: refer from Dr. Sherwood's HPI on 03/29/2020 This is a 84-year-old female with a past medical history significant for hypertension, hypothyroidism, reported history of lung cancer and renal cancer, CKD stage IV who presents today from home after her neighbors reportedly called the ambulance to check on her. Patient is a very poor historian with tangential thoughts and it is difficult to obtain an accurate and detailed history. She tells me that she is here today because her neighbors want to check on her and therefore they called the ambulance. She is not sure why her neighbors were concerned about her. EMS reportedly found dark tarry stool all over the house as well as multiple soiled maxipads and had tarry stool. The patient reports that she believes she may have been bleeding since this past Saturday. She reports dark blood and some bright blood at times per rectum. She has some mild associated abdominal pain. She reports an episode of bloody emesis. She believes it may have been bright blood. She does not recall that she is on any blood thinners. She denies any alcohol use. She reports no NSAID use including aspirin due to side effects in the past which she cannot explain. She believes she may have had prior bleeding in the past. She tells me she believes she may have had colitis before. She reports fevers and chills. Denies any chest pain or dyspnea. She states she has been feeling dizzy and lightheaded and has been falling at home over the past few days. She does not feel confused at this time. She brought with her multiple medication bottles although some of these are as old as 2009. She cannot give a reason as to why she keeps old pill bottles. In the emergency department, she is found to be afebrile temperature of 36.2 C. Her heart rate was 91 and her blood pressure is 116/53. She was not tachypneic and saturating 100% on room air. Labs are significant for a hemoglobin of 5. Her INR is 1.1. Her BUN is elevated at 95 which is increased compared to her baseline in the 30s. Her creatinine is stable at 1.8 which is her baseline. Given the findings above, medicine was consulted for admission. I did discuss goals of care the patient and she has a POLST form which states she is a DNR limited interventions. She confirms today that she does not want CPR. - HOSPITAL COURSE Hospital Course: Patient was admitted for GI bleeding, patient had a total of 4 units of blood transfusion hospital, patient had EGD done by over surgeon in the hospital. EGD show patient has small gastric ulcers with blood in the area but without active bleeding. Biopsy was done in the EGD procedure. Patient continue to have H and H to monitor home hemoglobin in the hospital. Patient hemoglobin is in the trend of stable. Patient's BUN is down to 38 from 99. Patient has no bowel movement on today, GI surgeon believe patient can be discharged safely. Patient was advised to have CBC in the SNF in 2 to 3 days. Patient's home Plavix is on hold because of her GI bleeding. Advised patient can resume Plavix if clinically indicated and without GI bleed. Patient was discharged to [facility]. - ALLERGIES Allergies/Adverse Reactions: Allergies Allergy/AdvReac Type Severity Reaction Status Date / Time cephalexin Allergy Unknown Verified 10/27/18 12:32 citalopram [From Celexa] Allergy Unknown Verified 10/27/18 12:32 doxycycline Allergy Unknown Verified 10/27/18 12:32 fluticasone [From Flonase] Allergy Unknown Verified 10/27/18 12:32 meperidine [From Demerol] Allergy Unknown Verified 10/27/18 12:32 Penicillins Allergy Unknown Verified 10/27/18 12:32 Sulfa (Sulfonamide Allergy Unknown Verified 10/27/18 12:32 Antibiotics) aspirin AdvReac Emesis Verified 10/24/18 16:13 scotch broom Allergy Unknown Uncoded 10/27/18 12:32 - MEDICATIONS Home Medications: Ambulatory Orders Medication Instructions Recorded Confirmed Alendronate [Fosamax] 70 mg PO Q7D 10/24/18 03/30/20 Furosemide 40 mg PO DAILY 10/24/18 03/30/20 Simvastatin 40 mg PO QPM 10/24/18 03/30/20 Telmisartan [Micardis] 40 mg PO DAILY 10/24/18 03/30/20 allopurinoL [Allopurinol] 200 mg PO DAILY 10/24/18 03/30/20 atenoloL [Atenolol] 50 mg PO DAILY 10/24/18 03/30/20 Acetaminophen with Codeine 1 tab PO BID PRN 03/30/20 03/30/20 [Acetaminophen-Cod #3 Tablet] Levothyroxine Sodium [Synthroid] 112 mcg PO DAILY 03/30/20 03/30/20 Trospium Chloride 03/30/20 diazePAM [Diazepam] 5 mg PO BID PRN 03/30/20 03/30/20 Omeprazole 40 mg PO BID #30 capsule. 04/01/20 - PHYSICAL EXAM AT DISCHARGE General Appearance: positive: No acute distress, Alert. negative: Lethargic Eyes Bilateral: positive: Normal inspection, PERRL, No lid inflammation ENT: positive: ENT inspection nml, Pharynx nml, No signs of dehydration. negative: Purulent nasal drainage Neck: positive: Nml inspection, Thyroid nml, No JVD, Trachea midline. negative: Thyromegaly, Stiff neck, Tracheal deviation Respiratory: positive: Chest non-tender, No respiratory distress, Breath sounds nml. negative: Wheezes, Rales, Rhonchi Cardiovascular: positive: Regular rate & rhythm, No murmur, Systolic murmur, Diastolic murmur. negative: Tachycardia, Bradycardia Peripheral Pulses: positive: 2+ Abdomen: positive: Non-tender, No organomegaly, Nml bowel sounds, No distention. negative: Tenderness, Guarding, Rebound Back: positive: Nml inspection. negative: CVA tenderness (R), CVA tenderness (L) Skin: positive: Color nml, No rash, Warm, Dry. negative: Cyanosis, Diaphoresis, Pallor Extremities: positive: Non-tender, Full ROM, Nml appearance. negative: Calf tenderness, Karli's sign/cords Neurologic/Psychiatric: positive: Oriented x3, Motor nml, Sensation nml, Mood/affect nml. negative: Weakness, Sensory loss, Facial droop, Slurred/abnml speech, Depressed mood/affect - LABS Result Diagrams: 04/01/20 12:10 04/01/20 04:50 - SEPSIS Current Stage of Sepsis: Ruled out - FOLLOW UP Follow Up: pt was found to have small gastric ulcer in EGD and GI bleed. pt is prescribed omeprazole. pt had 4 unit of blood transfusion in hospital. Pt had no bowel movement on today, it is likely pt's GI bleed was stopped, surgeon discharged pt as well. pt's home Plavix is hold now because of GI bleeding. advise pt have CBC in 2-3 days in SNF and continue monitor if pt has GI bleed, and resume Plavix after her gastric ulcer was healed. - TIME SPENT Time Spent in Discharge (Minutes): 30
[2020-04-01 15:48] VITALS: BP 132/57
== END 2020-04-01 16:18 | DRG 378 ==
LOC: EDUNIT# → ED 19:59 → MS2 22:32
PROVIDERS: ADMIT Internal Medicine; ATTEND Nurse Practitioner Gerontology
PROC: 30233N1 Transfusion of Nonautologous Red Blood Cells into Peripheral Vein, Percutaneous Approach (ICD-10-PCS; principal; 2020-03-29)
PROC: 0DB78ZX Excision of Stomach, Pylorus, Via Natural or Artificial Opening Endoscopic, Diagnostic (ICD-10-PCS; 2020-03-30)
DX: K92.2 Gastrointestinal hemorrhage, unspecified (principal); K25.4 Chronic or unspecified gastric ulcer with hemorrhage; D62 Acute posthemorrhagic anemia; I10 Essential (primary) hypertension; N18.4 Chronic kidney disease, stage 4 (severe); I12.9 Hypertensive chronic kidney disease with stage 1 through stage 4 chronic kidney disease, or unspecified chronic kidney disease; F03.90 Unspecified dementia, unspecified severity, without behavioral disturbance, psychotic disturbance, mood disturbance, and anxiety; E03.9 Hypothyroidism, unspecified; Z85.528 Personal history of other malignant neoplasm of kidney; Z85.118 Personal history of other malignant neoplasm of bronchus and lung; F17.210 Nicotine dependence, cigarettes, uncomplicated; Z91.81 History of falling; Z66 Do not resuscitate; F09 Unspecified mental disorder due to known physiological condition; Z20.828 Contact with and (suspected) exposure to other viral communicable diseases; J44.9 Chronic obstructive pulmonary disease, unspecified
CPT/HCPCS: 36415; 71046; 80048; 80053; 82140; 82272; 82607; 82728; 82746; 83540; 83615; 83690; 83735; 84100; 84443; 84466; 85014; 85018; 85025; 85045; 85610; 85730; 86850; 86900; 86901; 86920; 87081; 92610; 97116; 97162; 97166; 97535; 99284; 99285; A9270; J7120; P9016; U0004; 80307

== ENCOUNTER 2020-05-03 15:30 | Outpatient (CLI) | payer MEDICARE, OTHER ==
[2020-05-03 18:23] LABS: BASOPHILS # (AUTO) 0.1 10^3/uL (0.0-0.1); EOSINOPHILS # (AUTO) 0.1 10^3/uL (0.0-0.7); EOSINOPHILS % (AUTO) 0.9 %; HGB - HEMOGLOBIN 11.4 g/dL (12.0-16.0); LYMPHOCYTES # (AUTO) 1.6 10^3/uL (1.5-3.5); LYMPHOCYTES % (AUTO) 19.6 %; MEAN CORPUSCULAR HGB CONC 31.1 g/dL (32.0-36.0); MEAN CORPUSCULAR VOLUME 96.6 fL (81.0-99.0); MEAN PLATELET VOLUME 11.6 fL (7.9-10.8); MONOCYTES # (AUTO) 0.7 10^3/uL (0.0-1.0); MONOCYTES % (AUTO) 8.5 %; NEUTROPHILS # (AUTO) 5.6 10^3/uL (1.5-6.6); NEUTROPHILS % (AUTO) 69.5 %; PLT - PLATELET COUNT 238 10^3/uL (130-450); RED CELL DISTRIBUTION WIDTH 17.6 % (12.0-15.0)
[2020-05-03 18:48] LABS: ALBUMIN 3.8 g/dL (3.2-5.5); ALBUMIN/GLOBULIN RATIO 1.1 (1.0-2.2); ALKALINE PHOSPHATASE 88 IU/L (42-121); ALT ALANINE AMINOTRANSFERASE 14 IU/L (10-60); AST ASPARTATE AMINOTRANSFERASE 16 IU/L (10-42); BILIRUBIN,TOTAL 0.5 mg/dL (0.2-1.0); BUN - BLOOD UREA NITROGEN 60 mg/dL (6-20); CALCIUM 9.5 mg/dL (8.5-10.3); CARBON DIOXIDE - CO2 24 mmol/L (21-32); CHLORIDE 104 mmol/L (101-111); CHOL/HDL RATIO 4.1 (<4.4); CHOLESTEROL 148 mg/dL; CREATININE 1.9 mg/dL (0.4-1.0); GLUCOSE 104 mg/dL (70-100); HDL CHOLESTEROL 36 mg/dL; LDL CHOLESTEROL,CALCULATED 75 mg/dL; LDL/HDL RATIO 2.1 (<4.4); SODIUM 136 mmol/L (135-145); TOTAL PROTEIN 7.2 g/dL (6.7-8.2); VLDL CHOLESTEROL 37 mg/dL
[2020-05-03 18:53] LABS: FREE T4 (FREE THYROXINE) 1.19 ng/dL (0.58-1.64)
[2020-05-03 18:55] LABS: FREE T3 3.34 pg/mL (2.5-3.9)
[2020-05-03 18:56] LABS: THYROID STIMULATING HORMONE 0.57 uIU/mL (0.34-5.60)
[2020-05-03 18:58] LABS: FERRITIN 120.9 ng/mL (11.0-306.8)
[2020-05-03 19:13] LABS: HEMOGLOBIN A1c% 5.2 % (4.27-6.07)
== END 2020-05-03 23:59 | disposition home or self-care (01) ==
LOC: LAB.WCP 15:30
PROVIDERS: ATTEND Family Medicine
DX: E11.42 Type 2 diabetes mellitus with diabetic polyneuropathy (principal); K92.2 Gastrointestinal hemorrhage, unspecified; E89.0 Postprocedural hypothyroidism
CPT/HCPCS: 36415; 80053; 80061; 82607; 82728; 83036; 83721; 84439; 84443; 84481; 85025

== ENCOUNTER 2020-06-22 20:15 | Outpatient (CLI) | payer MEDICARE, OTHER | END 2020-06-22 20:16 | disposition critical access hospital (66) | LOC: EMS 20:15 | PROVIDERS: ATTEND Surgery | DX: M54.5 Low back pain (principal); R41.0 Disorientation, unspecified | CPT/HCPCS: A0425; A0427 ==

== ENCOUNTER 2020-06-22 20:35 | Inpatient (IN) | payer MEDICARE, OTHER ==
[2020-06-22] MEDS ORDERED: SODIUM CHLORIDE 0.9% 1,000 ML IV STA (21:30)
[2020-06-22 21:54] LABS: BASOPHILS % (AUTO) 0.5 %; EOSINOPHILS # (AUTO) 0.1 10^3/uL (0.0-0.7); EOSINOPHILS % (AUTO) 0.9 %; HGB - HEMOGLOBIN 12.1 g/dL (12.0-16.0); LYMPHOCYTES # (AUTO) 0.7 10^3/uL (1.5-3.5); MEAN CORPUSCULAR HEMOGLOBIN 29.4 pg (27.0-31.0); MEAN CORPUSCULAR HGB CONC 31.9 g/dL (32.0-36.0); MEAN CORPUSCULAR VOLUME 92.2 fL (81.0-99.0); MEAN PLATELET VOLUME 11.5 fL (7.9-10.8); MONOCYTES # (AUTO) 0.4 10^3/uL (0.0-1.0); MONOCYTES % (AUTO) 6.9 %; NEUTROPHILS # (AUTO) 4.5 10^3/uL (1.5-6.6); NEUTROPHILS % (AUTO) 79.3 %; PLT - PLATELET COUNT 164 10^3/uL (130-450); RED BLOOD COUNT 4.11 10^6/uL (4.20-5.40); RED CELL DISTRIBUTION WIDTH 15.9 % (12.0-15.0); WHITE BLOOD COUNT 5.7 x10^3/uL (4.8-10.8)
[2020-06-22 22:10] LABS: ALBUMIN 3.4 g/dL (3.2-5.5); ALBUMIN/GLOBULIN RATIO 0.9 (1.0-2.2); ALKALINE PHOSPHATASE 71 IU/L (42-121); ALT ALANINE AMINOTRANSFERASE < 10 IU/L (10-60); AST ASPARTATE AMINOTRANSFERASE 15 IU/L (10-42); BILIRUBIN,TOTAL 0.8 mg/dL (0.2-1.0); BUN - BLOOD UREA NITROGEN 49 mg/dL (6-20); CALCIUM 9.6 mg/dL (8.5-10.3); CARBON DIOXIDE - CO2 23 mmol/L (21-32); CHLORIDE 113 mmol/L (101-111); CREATININE 1.1 mg/dL (0.4-1.0); GLUCOSE 125 mg/dL (70-100); LIPASE 33 U/L (22-51); SODIUM 146 mmol/L (135-145); TOTAL PROTEIN 7.1 g/dL (6.7-8.2)
--- NOTE | 2020-06-22 22:20 | CT Report ---
PROCEDURE: HEAD WO INDICATIONS: AMS, found on ground TECHNIQUE: Noncontrast 4.5 mm thick angled axial sections acquired from the foramen magnum to the vertex. For r adiation dose reduction, the following was used: automated exposure control, adjustment of mA and/or kV according to patient size. COMPARISON: There is mild motion artifact and beam hardening artifact. FINDINGS: Image quality: Excellent. CSF spaces: There is moderate cerebral volume loss with prominence of the ventricles and sulci. Basa l cisterns are patent. No extra-axial fluid collections. Brain: No definite intracranial hemorrhage, mass, or mass effect. There are periventricular and subco rtical white matter hypodensities consistent with moderate chronic small vessel ischemic changes. The re is a small region of periventricular encephalomalacia in the right frontal lobe. Skull and face: Calvarium and visualized facial bones are intact, without suspicious lesions. Sinuses: Visualized sinuses and mastoids are clear. IMPRESSION: 1. No definite acute intracranial abnormality. 2. Moderate cerebral volume loss and chronic white matter small vessel ischemic changes. 3. 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 Reviewed by: Vikash Young MD on 06/22/2020 10:19 PM PDT Approved by: Vikash Young MD on 06/22/2020 10:19 PM PDT Station ID: [id number]
--- NOTE | 2020-06-22 22:28 | CT Report ---
PROCEDURE: CERVICAL SPINE WO INDICATIONS: fall, AMS TECHNIQUE: Noncontrast 3 mm thick sections acquired from the skull base to the T4 level. Sagittal and coronal r eformats were then constructed. For radiation dose reduction, the following was used: automated exp osure control, adjustment of mA and/or kV according to patient size. COMPARISON: None. FINDINGS: Image quality: Excellent. Bones: No definite fractures or subluxation in the cervical spine. There is mild inferior endplate scalloping in the T1 vertebral body of indeterminate acuity. There are curvilinear lucencies along th e left aspect of the inferior endplate which slightly corticated margins suggestive of a nutrient for amen or a nonacute compression deformity. Minimal anterolisthesis is demonstrated at C4-C5 and C5-C6. There is multilevel disc space narrowing including moderate to severe degeneration in the mid and lo wer cervical spine at C4-C5, C5-C6, and C6-C7 with endplate sclerosis and osteophytosis. There is mod erate degeneration at the atlantoaxial junction. Moderate facet arthropathy demonstrated throughout t he cervical spine. There is a leftward curvature of the cervicothoracic spine. Visualized superior ri bs are intact. Visualized osseous structures appear osteopenic. Soft tissues: Prevertebral soft tissues are normal in thickness. No paravertebral hematomas. No ap ical pneumothoraces. There are moderate paraseptal and centrilobular and to demonstrate changes withi n the visualized lungs. Filling defects within the visualized trachea are compatible with mucus. IMPRESSION: 1. No definite acute fracture or subluxation in the cervical spine. 2. Mild inferior plate scalloping of the T1 vertebral body of indeterminate acuity. Associated curvil inear lucencies demonstrate currently corticated margins suggestive of vascular foramina or nonacute fractures. 3. Minimal anterolisthesis at C4-C5 and C5-C6. 4. Multilevel degenerative changes throughout the cervical spine as described. Reviewed by: Vikash Young MD on 06/22/2020 10:26 PM PDT Approved by: Vikash Young MD on 06/22/2020 10:26 PM PDT Station ID: [id number]
[2020-06-22 22:56] LABS: BILIRUBIN,URINE NEGATIVE (NEGATIVE); GLUCOSE, URINE (UA) NEGATIVE (NEGATIVE); KETONES,URINE (UA) NEGATIVE (NEGATIVE); LEUKOCYTE ESTERASE, URINE MODERATE (NEGATIVE); NITRITE,URINE NEGATIVE (NEGATIVE); OCCULT BLOOD,URINE MODERATE (NEGATIVE); PH,URINE 6.5 PH (5.0-7.5); PROTEIN,URINE 100 mg/dL (NEGATIVE); UROBILINOGEN,URINE 0.2 (NORMAL) E.U./dL (NORMAL)
[2020-06-22 22:57] LABS: CLARITY,URINE HAZY (CLEAR)
[2020-06-22 23:02] LABS: BACTERIA,URINE Moderate /HPF (None Seen); SQUAMOUS EPITHELIAL CELL,UR FEW Squamous (<= Few)
--- NOTE | 2020-06-22 23:51 | ED Physician Documentation ---
History of Present Illness - Stated complaint Stated Complaint: FALL/BACK PAIN - Chief complaint Chief Complaint: Trauma Ch/Bk - History obtained from History obtained from: Patient, EMS - History of Present Illness Timing: How many days ago (3) Pain level now: 0 - Additonal information Additional information: BIBA. Per EMS report, neighbor called 911 for welfare check on patient, as neighbor had not seen patient in 3 days. EMS arrived to find patient on floor in her house unable to stand due to weakness. Unclear if patient fell and unclear how long patient had been on the floor. She answers questions with answers that seem mostly appropriate but occasionally gives odd answers and is difficult to understand at times due to quiet voice and extremely dry mucous membranes Review of Systems Unable to obtain: Confused Constitutional: reports: Fatigue Cardiac: denies: Chest pain / pressure Respiratory: denies: Dyspnea GI: denies: Abdominal Pain Neurologic: reports: Generalized weakness. denies: Headache PD PAST MEDICAL HISTORY - Past Medical History Past Medical History: Yes Cardiovascular: Hypertension Respiratory: Other Neuro: Dementia Endocrine/Autoimmune: HyPOthyroidism GI: Other : Renal insuffiency Psych: None Derm: None - Past Surgical History Past Surgical History: Yes General: Hiatal hernia repair /[employer]: Hysterectomy, Mastectomy HEENT: Cataracts - Present Medications Home Medications: Ambulatory Orders Medication Instructions Recorded Confirmed Alendronate [Fosamax] 70 mg PO Q7D 10/24/18 06/22/20 Furosemide 40 mg PO DAILY 10/24/18 06/22/20 Simvastatin 40 mg PO QPM 10/24/18 06/22/20 Telmisartan [Micardis] 40 mg PO DAILY 10/24/18 06/22/20 allopurinoL [Allopurinol] 200 mg PO DAILY 10/24/18 06/22/20 atenoloL [Atenolol] 50 mg PO DAILY 10/24/18 06/22/20 Levothyroxine Sodium [Synthroid] 112 mcg PO DAILY 03/30/20 06/22/20 Trospium Chloride 20 mg PO DAILY 03/30/20 06/22/20 Omeprazole 40 mg PO BID #30 capsule. 04/01/20 06/22/20 Cetirizine [ZyrTEC] 10 mg PO DAILY 06/22/20 06/22/20 - Allergies Allergies/Adverse Reactions: Allergies Allergy/AdvReac Type Severity Reaction Status Date / Time cephalexin Allergy Unknown Verified 06/22/20 20:50 citalopram [From Celexa] Allergy Unknown Verified 06/22/20 20:50 doxycycline Allergy Unknown Verified 06/22/20 20:50 fluticasone [From Flonase] Allergy Unknown Verified 06/22/20 20:50 meperidine [From Demerol] Allergy Unknown Verified 06/22/20 20:50 Penicillins Allergy Unknown Verified 06/22/20 20:50 Sulfa (Sulfonamide Allergy Unknown Verified 06/22/20 20:50 Antibiotics) aspirin AdvReac Emesis Verified 06/22/20 20:50 scotch broom Allergy Unknown Uncoded 06/22/20 20:50 - Social History Does the pt smoke?: No Smoking Status: Never smoker Does the pt drink ETOH?: No Does the pt have substance abuse?: No - Immunizations Immunizations are current?: Yes - POLST Patient has POLST: No PD ED PE NORMAL - Vitals Vital signs reviewed: Yes - General General: No acute distress, Well developed/nourished, Other (awake, alert; speaks quietly and difficult to understand at times due to severely dry mucous membranes) - HEENT HEENT: Atraumatic, PERRL, EOMI - Neck Neck: No bony TTP - Cardiac Cardiac: RRR - Respiratory Respiratory: No respiratory distress, Clear bilaterally - Abdomen Abdomen: Soft, Non tender - Back Back: No spinal TTP - Derm Derm: Normal color, Warm and dry - Extremities Extremities: No tenderness to palpate, No edema - Neuro Eye Opening: Spontaneous Motor: Obeys Commands Verbal: Confused (knows year, provides name, but unsure of location) GCS Score: 14 PD ED PE EXPANDED - HEENT HEENT: Dry mucous membranes (parched mucous membranes) Results - Vitals Vitals: Vital Signs - 24 hr 06/22/20 06/22/20 06/22/20 20:35 20:58 22:52 Temperature 36.4 C L 36.4 C L Heart Rate 75 75 73 Respiratory 20 20 18 Rate Blood Pressure 175/79 H 175/79 H 155/81 H O2 Saturation 98 98 98 06/23/20 00:03 Temperature Heart Rate 78 Respiratory 18 Rate Blood Pressure 164/71 H O2 Saturation 98 Oxygen O2 Source Room air - Labs Labs: Laboratory Tests 06/22/20 06/22/20 06/22/20 21:21 21:21 21:21 WBC 5.7 RBC 4.11 L Hgb 12.1 Hct 37.9 MCV 92.2 MCH 29.4 MCHC 31.9 L RDW 15.9 H Plt Count 164 MPV 11.5 H Neut # (Auto) 4.5 Lymph # (Auto) 0.7 L [place] # (Auto) 0.4 Eos # (Auto) 0.1 Baso # (Auto) 0.0 Absolute Nucleated RBC 0.00 Nucleated RBC % 0.0 Sodium 146 H Potassium 3.7 Chloride 113 H Carbon Dioxide 23 Anion Gap 10.0 BUN 49 H Creatinine 1.1 H Estimated GFR (MDRD) 47 L Glucose 125 H Lactic Acid Calcium 9.6 Total Bilirubin 0.8 AST 15 ALT < 10 L Alkaline Phosphatase 71 Total Creatine Kinase 181 CK-MB (CK-2) Troponin I High Sens Total Protein 7.1 Albumin 3.4 Globulin 3.7 Albumin/Globulin Ratio 0.9 L Lipase 33 Urine Color Urine Clarity Urine pH Ur Specific [place] Urine Protein Urine Glucose (UA) Urine Ketones Urine Occult Blood Urine Nitrite Urine Bilirubin Urine Urobilinogen Ur Leukocyte Esterase Urine RBC Urine WBC Ur Squamous Epith Cells Urine Bacteria Ur Microscopic Review Urine Culture Comments 06/22/20 06/22/20 06/22/20 21:21 22:33 22:45 WBC RBC Hgb Hct MCV MCH MCHC RDW Plt Count MPV Neut # (Auto) Lymph # (Auto) [place] # (Auto) Eos # (Auto) Baso # (Auto) Absolute Nucleated RBC Nucleated RBC % Sodium Potassium Chloride Carbon Dioxide Anion Gap BUN Creatinine Estimated GFR (MDRD) Glucose Lactic Acid 1.2 Calcium Total Bilirubin AST ALT Alkaline Phosphatase Total Creatine Kinase CK-MB (CK-2) 5.3 Troponin I High Sens Total Protein Albumin Globulin Albumin/Globulin Ratio Lipase Urine Color YELLOW Urine Clarity HAZY Urine pH 6.5 Ur Specific [place] 1.015 Urine Protein 100 H Urine Glucose (UA) NEGATIVE Urine Ketones NEGATIVE Urine Occult Blood MODERATE H Urine Nitrite NEGATIVE Urine Bilirubin NEGATIVE Urine Urobilinogen 0.2 (NORMAL) Ur Leukocyte Esterase MODERATE H Urine RBC 6-10 H Urine WBC 11-25 H Ur Squamous Epith Cells FEW Squamous Urine Bacteria Moderate H Ur Microscopic Review INDICATED Urine Culture Comments INDICATED 06/22/20 23:48 WBC RBC Hgb Hct MCV MCH MCHC RDW Plt Count MPV Neut # (Auto) Lymph # (Auto) [place] # (Auto) Eos # (Auto) Baso # (Auto) Absolute Nucleated RBC Nucleated RBC % Sodium Potassium Chloride Carbon Dioxide Anion Gap BUN Creatinine Estimated GFR (MDRD) Glucose Lactic Acid Calcium Total Bilirubin AST ALT Alkaline Phosphatase Total Creatine Kinase CK-MB (CK-2) Troponin I High Sens 15.8 H* Total Protein Albumin Globulin Albumin/Globulin Ratio Lipase Urine Color Urine Clarity Urine pH Ur Specific [place] Urine Protein Urine Glucose (UA) Urine Ketones Urine Occult Blood Urine Nitrite Urine Bilirubin Urine Urobilinogen Ur Leukocyte Esterase Urine RBC Urine WBC Ur Squamous Epith Cells Urine Bacteria Ur Microscopic Review Urine Culture Comments - Rads (name of study) chest xray Radiology: Prelim report reviewed, See rad report pelvis xray Radiology: Prelim report reviewed, See rad report CTH Radiology: Prelim report reviewed, See rad report CT cervical spine Radiology: Prelim report reviewed, See rad report PD MEDICAL DECISION MAKING - ED course Complexity details: reviewed old records, reviewed results, re-evaluated patient, considered differential, d/w patient Departure - Departure Disposition: ED Place in Observation Clinical Impression: Dehydration, Weakness Condition: Stable Discharge Date/Time: 06/23/20 01:02
[2020-06-23] MEDS ORDERED: LACTATED RINGERS 1,000 ML IV ONE (00:23)
--- NOTE | 2020-06-23 00:27 | HISTORY & PHYSICAL EXAMINATION ---
Chief Complaint - Chief Complaint Chief Complaint: Found down at home History of Present Illness - Admitted From Admitted From:: Home - History Obtained From Records Reviewed: Yes History obtained from: Patient, ER Physician, EMR Exam Limitations: She is still confused and a poor historian. - History of Present Illness HPI Comment/Other: This is a 85-year-old female with a past medical history significant for hypertension, mild cognitive impairment, hypothyroidism, history of lung and renal cancer, chronic kidney disease stage IV who presents to the emergency department today after she was found down at home. Law enforcement called EMS after they went to the patient's home to do a welfare check and she was found to be lying on the floor. Her neighbors reported seeing her 3 days ago. She was scheduled for blood work yesterday which was never completed. Upon EMS arrival, the patient was only oriented to self but not to location or time. In the emergency department, she was found to be severely dehydrated and was given 2 L of normal saline. Her mentation improved after receiving IV fluids. Upon my evaluation, she knows that she is at the hospital and she knows the year and month. She cannot tell me what happened this past 3 days. She complains of back pain while lying on the bed. She reports no chest pain, dyspnea, cough. She reports no recent illnesses. Denies any dysuria, urgency, frequency. She states she has had urinary tract infections in the past and she saw a specialist given that she had a renal mass. She reports living alone. She feels weak overall but denies any focal deficits. She is concerned about being admitted to the hospital due to cost. She was found to be afebrile with a temperature of 36.4 C. Her heart rate was 75. Her blood pressure was 175/79. She was not tachypneic and saturating well on room air. Her labs were significant for sodium of 146, BUN of 49, and a creatinine of 1.1. CBC was unremarkable. CKs and lactic acid are within normal limits. Her urinalysis revealed moderate leukocyte Estrace, 11-25 WBCs, moderate bacteria as well as 6-10 RBCs and moderate occult blood. CT of the head was unremarkable for any acute abnormalities. The cervical spine CT did not reveal any acute abnormalities. Despite her improving mentation, she was still quite lethargic and intermittently confused although her orientation had improved. Given the above findings, medicine was consulted for admission. I did attempt to contact the patient's POA to discuss goals of care but he did not answer the phone. The patient was admitted back in March of this year and at that time she was a DNR. Her POLST form also states that she is a DNR. I do not think she has the ability to make this decision right now and so we will make her a DNR given the prior documentation. 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 Living arrangement: At home Living Situation: Alone Social History Notes: She is unable to provide a social history today but review of prior records does report that she lives at home alone. She was discharged to a longterm facility after her last admission. She was smoking up to her last admission. There is reportedly no history of alcohol use. - POLST Patient has POLST: No Meds/Allgy - Home Medications Home Medications: Ambulatory Orders Medication Instructions Recorded Confirmed Alendronate [Fosamax] 70 mg PO Q7D 10/24/18 06/22/20 Furosemide 40 mg PO DAILY 10/24/18 06/22/20 Simvastatin 40 mg PO QPM 10/24/18 06/22/20 Telmisartan [Micardis] 40 mg PO DAILY 10/24/18 06/22/20 allopurinoL [Allopurinol] 200 mg PO DAILY 10/24/18 06/22/20 atenoloL [Atenolol] 50 mg PO DAILY 10/24/18 06/22/20 Levothyroxine Sodium [Synthroid] 112 mcg PO DAILY 03/30/20 06/22/20 Trospium Chloride 20 mg PO DAILY 03/30/20 06/22/20 Omeprazole 40 mg PO BID #30 capsule. 07/24/20 10/14/20 Cetirizine [ZyrTEC] 10 mg PO DAILY 06/22/20 06/22/20 - Allergies Allergies/Adverse Reactions: Allergies Allergy/AdvReac Type Severity Reaction Status Date / Time cephalexin Allergy Unknown Verified 06/22/20 20:50 citalopram [From Celexa] Allergy Unknown Verified 06/22/20 20:50 doxycycline Allergy Unknown Verified 06/22/20 20:50 fluticasone [From Flonase] Allergy Unknown Verified 06/22/20 20:50 meperidine [From Demerol] Allergy Unknown Verified 06/22/20 20:50 Penicillins Allergy Unknown Verified 06/22/20 20:50 Sulfa (Sulfonamide Allergy Unknown Verified 06/22/20 20:50 Antibiotics) aspirin AdvReac Emesis Verified 06/22/20 20:50 scotch broom Allergy Unknown Uncoded 06/22/20 20:50 Review of Systems - Constitutional Constitutional: reports: Weakness, Poor appetite. denies: Fever, Chills - Cardiovascular Cariovascular: denies: Chest pain, Edema, Exertional dyspnea, Decr. exercise tolerance - Respiratory Respiratory: denies: SOB at rest, SOB with exertion - Gastrointestinal Gastrointestinal: denies: Abdominal pain, Nausea, Vomiting - Genitourinary Genitourinary: denies: Dysuria, Frequency, Urgency, Hematuria - Neurological Neurological: reports: General weakness. denies: Focal weakness - All Other Systems All Other Systems: reports: Other (Review of systems is limited given she is still intermittently confused and is a poor historian.) Prior Level of Functionality: She does have a history of mild cognitive impairment. She lives alone. It appears she is independent with her ADLs. Exam - Vital Signs Reviewed Vital Signs: Yes Vital Signs: Vital Signs x48h Temp Pulse Resp BP Pulse Ox 06/23/20 00:03 78 18 164/71 H 98 06/22/20 22:52 73 18 155/81 H 98 06/22/20 20:58 36.4 C L 75 20 175/79 H 98 06/22/20 20:35 36.4 C L 75 20 175/79 H 98 - Physical Exam General Appearance: positive: No acute distress, Alert Eyes Bilateral: positive: Normal inspection, Conjunctivae nml ENT: positive: Dry mucous membranes. negative: No signs of dehydration Neck: positive: Nml inspection Respiratory: positive: No respiratory distress. negative: Wheezes, Rales Cardiovascular: positive: Regular rate & rhythm, No murmur. negative: Tachyca rdia, Bradycardia, Systolic murmur Abdomen: positive: Non-tender, No distention. negative: Tenderness, Guarding, Rebound Skin: positive: Warm, Dry Extremities: positive: No pedal edema Neurologic/Psychiatric: positive: Oriented x3, Other (She is now alert and oriented to self, location, year, month. She is moving all 4 extremities. She is still intermittently confused and will answer some questions incorrectly. Her speech is also delayed at times.). negative: Disoriented to person, Disoriented to place, Disoriented to time Conclusion/Plan - Problem List (1) Altered mental status Conclusion/Plan: Her mentation is improving but she still is intermittently confused and not back to her baseline. This is likely secondary to dehydration. Although her urinalysis may be suggestive of infection, I do not think this is the cause of her altered mental status given the fact she is improving with IV fluids. CT of the head did not reveal any acute abnormalities. We will continue IV hydration. Check a TSH. Avoid sedatives. Qualifiers: Altered mental status type: delirium Qualified Code(s): R41.0 - Disorientation, unspecified (2) Dehydration Conclusion/Plan: She appears significantly dehydrated on physical exam. Remarkably, her creatinine is stable and her CKs are within normal limits. Her sodium is slig htly elevated at 146. She has already received 2 L of normal saline in the emergency department. We will give her another liter of lactated Ringer's and continue her on IV maintenance fluids. Encourage oral intake. (3) Chronic bacteriuria Conclusion/Plan: Although her urinalysis is suggestive of infection, I suspect this is chronic bacteriuria given she has always had abnormal urinalysis. She has been in the emergency department in the past for symptoms of a urinary tract infection. Today she denies any symptoms including dysuria, urgency, frequency. She also has no fever or leukocytosis. Given her mentation is already improving with IV fluids, I do not suspect that her confusion would be due to to a urinary tract infection. At this time, we will hold off on initiating antibiotics for the reasons mentioned above. (4) Atrial flutter by electrocardiogram Conclusion/Plan: This is evident on her EKG although her telemetry is showing a sinus rhythm. She has had brief episodes of atrial flutter on telemetry but she converts quickly back to sinus rhythm. Her initial troponin is only mildly elevated. We will monitor on telemetry and repeat an EKG in the morning. If she has further evidence of atrial flutter/atrial fibrillation then we will obtain echocardiogram. We will hold off on anticoagulation for the time being. (5) CKD (chronic kidney disease), stage IV Conclusion/Plan: Surprisingly, her creatinine is stable at 1.1. We will continue IV fluids given she appears quite dehydrated. We will continue to monitor her renal function. (6) Cognitive impairment Conclusion/Plan: It appears that she has a degree of mild cognitive impairment based off documentation from her prior admission. Suspect she likely has dementia at baseline. We will consult social work as APS may need to be involved to ensure that the patient has a safe living environment. (7) Hypertension Conclusion/Plan: Her blood pressure is elevated with systolic in the 170s. We will resume her ho me antihypertensives. (8) Hypothyroidism Conclusion/Plan: We will continue her home Synthroid. Check a TSH. (9) History of gastric ulcer Conclusion/Plan: She has history of gastric ulcers. Her hemoglobin is stable. We will continue Protonix. - Lab Results Lab results reviewed: Yes Fish Bones: 06/23/20 04:41 06/23/20 04:41 - Diagnostic Imaging Results Diagnostic Imaging Results: positive: Final report reviewed - EKG Results EKG Interpreted Independently: Yes EKG Comparison: No prior EKG EKG Findings: Her EKG appeared consistent with atrial flutter. No obvious ischemic changes. There is no prior EKG to compare to. On telemetry she appears to be in a sinus rhythm although she had a few seconds where she appeared to be in atrial fibrillation. Core Measures - Anticipated LOS I expect patient to be DC'd or transferred within 96 hours.: Yes - Issues Hospital Issues and Management Plan: 85-year-old female who lives alone presents after being found down at home. She is confused and appears significantly dehydrated. Her mentation is improving with IV fluids but she is not quite back to her baseline. We will place in observation for further IV hydration and social work consult given the concern for poor living situation. - DVT/VTE - Prophylaxis VTE/DVT Device ordered at admit?: Yes VTE/DVT Prophylaxis med ordered at admit?: Yes
[2020-06-23] MEDS ORDERED: HALOPERIDOL 5 MG/ML VIAL IVP PRN (00:57)
[2020-06-23] MEDS: SODIUM CHLORIDE FLUSH 0.9% 10 ML SYRINGE IVP SCH ×3 (01:18→16:59)
[2020-06-23] MEDS: LACTATED RINGERS 1,000 ML IV SCH ×2 (02:56→12:31)
[2020-06-23 05:18] LABS: BASOPHILS % (AUTO) 0.5 %; EOSINOPHILS % (AUTO) 0.5 %; HGB - HEMOGLOBIN 11.4 g/dL (12.0-16.0); LYMPHOCYTES # (AUTO) 0.9 10^3/uL (1.5-3.5); LYMPHOCYTES % (AUTO) 15.2 %; MEAN CORPUSCULAR VOLUME 93.6 fL (81.0-99.0); MEAN PLATELET VOLUME 11.6 fL (7.9-10.8); MONOCYTES # (AUTO) 0.4 10^3/uL (0.0-1.0); MONOCYTES % (AUTO) 6.4 %; NEUTROPHILS # (AUTO) 4.5 10^3/uL (1.5-6.6); NEUTROPHILS % (AUTO) 77.1 %; PLT - PLATELET COUNT 163 10^3/uL (130-450); RED BLOOD COUNT 3.93 10^6/uL (4.20-5.40); RED CELL DISTRIBUTION WIDTH 15.9 % (12.0-15.0); WHITE BLOOD COUNT 5.8 x10^3/uL (4.8-10.8)
[2020-06-23 05:34] LABS: CALCIUM 9.5 mg/dL (8.5-10.3); PHOSPHORUS 1.9 mg/dL (2.5-4.6)
[2020-06-23] MEDS: allopurinoL 100 MG TABLET PO SCH (08:29)
[2020-06-23] MEDS: ENOXAPARIN 40 MG/0.4 ML SYRINGE SUBQ SCH (08:29)
[2020-06-23] MEDS: NEUTRA-PHOS 250 MG TABLET PO SCH ×3 (08:29→16:57)
[2020-06-23] MEDS: atenoloL 25 MG TABLET PO SCH (08:30)
[2020-06-23] MEDS: DOCUSATE SODIUM 250 MG CAPSULE PO SCH ×2 (08:30→08:33)
[2020-06-23] MEDS ORDERED: LOSARTAN 50 MG TABLET PO SCH (09:00)
[2020-06-23] MEDS ORDERED: LEVOTHYROXINE 112 MCG TABLET PO SCH (09:00)
--- NOTE | 2020-06-23 10:17 | XRAY Report ---
PROCEDURE: Pelvis 1 View INDICATIONS: fall TECHNIQUE: 1 view(s) of the pelvis acquired. COMPARISON: None. FINDINGS: Bones: No fractures or dislocations. No suspicious bony lesions. Soft tissues: Visualized bowel gas pattern is normal. No suspicious soft tissue calcifications. IMPRESSION: No visualized acute fracture or dislocation. However, occult injury cannot be excluded. Recommend short interval imaging follow-up in 7-10 days as clinically indicated for additional evalua tion. Reviewed by: Honey Galindo MD on 06/23/2020 10:16 AM PDT Approved by: Honey Galindo MD on 06/23/2020 10:16 AM PDT Station ID: [id number]
--- NOTE | 2020-06-23 10:20 | XRAY Report ---
PROCEDURE: Chest 1 View X-Ray INDICATIONS: chest pain TECHNIQUE: One view of the chest was acquired. COMPARISON: Chest xray 03/29/20 FINDINGS: Surgical changes and devices: None. Lungs and pleura: No pleural effusions or pneumothorax. Lungs are clear. Mediastinum: Mediastinal contours appear normal. Heart size is enlarged. Bones and chest wall: No suspicious bony lesions. Overlying soft tissues appear unremarkable. IMPRESSION: No acute pulmonary process. Reviewed by: Honey Galindo MD on 06/23/2020 10:18 AM PDT Approved by: Honey Galindo MD on 06/23/2020 10:18 AM PDT Station ID: [id number]
--- NOTE | 2020-06-23 10:22 | PHARMACY PROGRESS NOTE ---
- Best Possible Medication History Admit Date and Time: 06/23/20 0020 Processed by: Nursing Medication History completed: Yes As the person ultimately responsible for medication therapy, providers are able to order a medication from an existing home medication list in [facility] via the "Reconcile Routine" prior to Confirmation of that medication by naval surface fire support planner. Such practice is discouraged except when the physician, in their clinical judgment, deems that a medical need exists for a medication without regard to previous use.
[2020-06-23] MEDS: MIN OIL/DIMETHICON/COCONUT OIL 92 GM TUBE TOP PRN ×2 (11:45→22:57)
[2020-06-23] MEDS: NYSTATIN POWDER 15 GM TOP SCH ×2 (13:23→22:33)
[2020-06-23] MEDS: ATORVASTATIN 10 MG TABLET PO SCH (21:15)
[2020-06-24 05:23] LABS: BASOPHILS % (AUTO) 0.5 %; EOSINOPHILS # (AUTO) 0.1 10^3/uL (0.0-0.7); EOSINOPHILS % (AUTO) 1.1 %; HGB - HEMOGLOBIN 12.4 g/dL (12.0-16.0); LYMPHOCYTES # (AUTO) 1.2 10^3/uL (1.5-3.5); LYMPHOCYTES % (AUTO) 15.2 %; MEAN CORPUSCULAR HGB CONC 32.2 g/dL (32.0-36.0); MEAN CORPUSCULAR VOLUME 90.2 fL (81.0-99.0); MEAN PLATELET VOLUME 11.5 fL (7.9-10.8); MONOCYTES # (AUTO) 0.8 10^3/uL (0.0-1.0); MONOCYTES % (AUTO) 9.9 %; NEUTROPHILS # (AUTO) 5.5 10^3/uL (1.5-6.6); NEUTROPHILS % (AUTO) 72.9 %; PLT - PLATELET COUNT 172 10^3/uL (130-450); RED BLOOD COUNT 4.27 10^6/uL (4.20-5.40); RED CELL DISTRIBUTION WIDTH 15.5 % (12.0-15.0); WHITE BLOOD COUNT 7.6 x10^3/uL (4.8-10.8)
[2020-06-24 05:35] LABS: CALCIUM 9.4 mg/dL (8.5-10.3); CREATININE 0.8 mg/dL (0.4-1.0); MAGNESIUM 1.6 mg/dL (1.7-2.8); PHOSPHORUS 1.9 mg/dL (2.5-4.6)
[2020-06-24] MEDS: SODIUM CHLORIDE FLUSH 0.9% 10 ML SYRINGE IVP SCH ×4 (07:53→23:46)
[2020-06-24] MEDS: DOCUSATE SODIUM 250 MG CAPSULE PO SCH (07:55)
[2020-06-24] MEDS ORDERED: POTASSIUM CHLORIDE 20 MEQ TABLET PO ONE (08:00)
[2020-06-24] MEDS ORDERED: POTASSIUM CHLOR 10 MEQ/100 ML 10 MEQ/100 ML BAG IV SCH (08:00)
[2020-06-24] MEDS ORDERED: MAGNESIUM SULFATE 2 GRAM 2 GM/50 ML BAG IV SCH (08:00)
[2020-06-24] MEDS ORDERED: POTASSIUM CHLORIDE INJ 40 MEQ in SODIUM CHLORIDE 0.9% 500 ML IV SCH (08:00)
[2020-06-24] MEDS: NYSTATIN POWDER 15 GM TOP SCH ×2 (08:39→20:06)
[2020-06-24] MEDS: allopurinoL 100 MG TABLET PO SCH (08:39)
[2020-06-24] MEDS: atenoloL 25 MG TABLET PO SCH (08:39)
[2020-06-24] MEDS: LOSARTAN 50 MG TABLET PO SCH (08:39)
[2020-06-24] MEDS: NEUTRA-PHOS 250 MG TABLET PO SCH ×3 (08:39→17:23)
[2020-06-24] MEDS: ENOXAPARIN 40 MG/0.4 ML SYRINGE SUBQ SCH (08:39)
[2020-06-24] MEDS ORDERED: cefTRIAXone 1 GM in SODIUM CHLORIDE 0.9% MINIBAG 100 ML IV SCH ×2 (09:00→11:00)
[2020-06-24] MEDS ORDERED: LEVOTHYROXINE 25 MCG TABLET PO SCH (09:00)
--- NOTE | 2020-06-24 11:37 | PROVIDER PROGRESS NOTE ---
Assessment/Plan - Problem List (1) Altered mental status Qualifiers: Altered mental status type: delirium Qualified Code(s): R41.0 - Disorientation, unspecified Assessment/Plan: Improved. Patient was very confused on yesterday, but today she is improved, She can participate with physical therapist and occupational therapist. Hold Haldol. CT of the head did not reveal any acute abnormalities. We will continue IV hydration. Check a TSH. Avoid sedatives, start with antibiotics for her UTI. Urine culture is pending (2) Dehydration Conclusion/Plan: resolved. Creatinine and BUN become normal, hold intravenous IV fluids, continue low-sodium diet. (3) Atrial flutter by electrocardiogram Conclusion/Plan: resolved. New EKG reveals sinus rhythm. We will hold off on anticoagulation for the time being.Continue home medication atenolol (4) CKD (chronic kidney disease), stage IV Conclusion/Plan: Stable (5) Cognitive impairment Conclusion/Plan: stable, Suspect she likely has dementia at baseline. Patient lives alone, severe dehydration in the admission and lying at home. We will consult social work Disposition for the patient has a safe living environment. (6) Hypertension stable (7) Hypothyroidism TSH is low, we will reduce home Synthroid to the 100 mcg daily, Follow-up PCP to continue management (8) History of gastric ulcer stable, HGB is stable, She has history of gastric ulcers. We will continue Protonix. (9)weakness Patient presented generalized weakness, patient is high risk for fall. Consult with physical therapist and occupational therapist - Current Meds Current Meds: Current Medications Generic Name Dose Route Start Last Admin Trade Name Freq PRN Reason Stop Dose Admin Allopurinol 200 mg 06/23/20 09:00 06/24/20 08:39 Zyloprim PO 200 mg DAILY VIRA Administration Atenolol 50 mg 06/23/20 09:00 06/24/20 08:39 Tenormin PO 50 mg DAILY VIRA Administration Atorvastatin Calcium 20 mg 06/23/20 21:00 06/23/20 21:15 Lipitor PO 20 mg QPM VIRA Administration Docusate Sodium 250 - 500 mg 06/23/20 07:35 06/24/20 07:55 Colace 250mg Capsule PO Not Given DAILY VIRA Enoxaparin Sodium 40 mg 06/23/20 09:00 06/24/20 08:39 Lovenox SUBQ 40 mg DAILY VIRA Administration Potassium Chloride 40 meq/ 520 mls @ 125 mls/hr 06/24/20 08:00 06/24/20 08:38 Sodium Chloride IV 06/24/20 12:00 125 mls/hr ONCE VIRA Administration Levothyroxine Sodium 100 mcg 06/24/20 09:00 06/24/20 08:39 Synthroid PO 100 mcg DAILY VIRA Administration Losartan Potassium 100 mg 06/24/20 09:00 06/24/20 08:39 Cozaar PO 100 mg DAILY VIRA Administration Mineral Oil 1 applic 06/23/20 08:56 06/23/20 22:57 Cavilon TOP 1 applic PRN PRN Administration Skin Care Nystatin 1 applic 06/23/20 11:00 06/24/20 08:39 Nystop TOP 1 applic BID VIRA Administration Sodium Chloride 10 ml 06/23/20 01:00 06/24/20 08:40 Normal Saline Flush 0.9% IVP 10 ml 0100,0900,1700 VIRA Administration Sodium Phosphate 250 mg 06/23/20 08:00 06/24/20 08:39 K-Phos Neutral PO 250 mg TIDWM VIRA Administration - Lab Result Fish Bone Diagrams: 06/24/20 05:04 06/24/20 05:04 - Additional Planning My Orders: My Active Orders 06/23/20 11:00 Nystatin [Nystop] 1 applic TOP BID 06/24/20 COVID-19 REFERENCE TEST Routine 06/24/20 07:48 Miscellaenous Nursing Order [RC] ONCE 06/24/20 08:00 Potassium Chloride Inj 40 meq Sodium Chloride 0.9% [Normal Saline 0.9%] 500 ml IV ONCE 06/24/20 09:00 Levothyroxine [Synthroid] 100 mcg PO DAILY Losartan [Cozaar] 100 mg PO DAILY 06/24/20 11:00 cefTRIAXone [Rocephin] 1 gm Sodium Chloride 0.9% Minibag [Normal Saline 0.9% Minibag] 100 ml IV Q24H Subjective - Subjective Patient Reports: Feeling Better Objective Vital Signs: Vital Signs - 24 hr 06/23/20 06/23/20 06/24/20 12:36 20:08 00:00 Temperature 36.6 C 36.6 C 36.7 C Heart Rate [ 66 67 97 Brachial] Respiratory 20 20 18 Rate Blood Pressure 164/69 H [Left Brachial artery] Blood Pressure 168/72 H 127/75 [Right Brachial artery] O2 Saturation 96 93 94 06/24/20 06/24/20 04:16 07:50 Temperature 36.6 C 36.8 C Heart Rate [ 56 L 77 Brachial] Respiratory 18 18 Rate Blood Pressure [Left Brachial artery] Blood Pressure 125/84 H 122/78 [Right Brachial artery] O2 Saturation 94 95 Oxygen O2 Source Room air I&O (Last 24 Hrs): Intake and Output Totals x24h 06/22/20 06/23/20 06/24/20 23:59 23:59 23:59 Intake Total 1000 4978.333 730 Balance 1000 4978.333 730 General: Alert, Cooperative, No acute distress HEENT: Atraumatic Neck: Supple Lymphatic: no adenopathy Neuro: Alert, Non Focal Cardiovascular: Regular rate, Normal S1, Normal S2 Respiratory: Chest non-tender, No respiratory distress, Breath sounds nml Abdomen: Normal bowel sounds, Soft, No tenderness Extremities: Normal pulses - Results Results: Laboratory Results WBC 7.6 x10^3/uL (4.8-10.8) 06/24/20 05:04 RBC 4.27 10^6/uL (4.20-5.40) 06/24/20 05:04 Hgb 12.4 g/dL (12.0-16.0) 06/24/20 05:04 Hct 38.5 % (37.0-47.0) 06/24/20 05:04 MCV 90.2 fL (81.0-99.0) 06/24/20 05:04 MCH 29.0 pg (27.0-31.0) 06/24/20 05:04 MCHC 32.2 g/dL (32.0-36.0) 06/24/20 05:04 RDW 15.5 % (12.0-15.0) H 06/24/20 05:04 Plt Count 172 10^3/uL (130-450) 06/24/20 05:04 MPV 11.5 fL (7.9-10.8) H 06/24/20 05:04 Neut # (Auto) 5.5 10^3/uL (1.5-6.6) 06/24/20 05:04 Lymph # (Auto) 1.2 10^3/uL (1.5-3.5) L 06/24/20 05:04 [place] # (Auto) 0.8 10^3/uL (0.0-1.0) 06/24/20 05:04 Eos # (Auto) 0.1 10^3/uL (0.0-0.7) 06/24/20 05:04 Baso # (Auto) 0.0 10^3/uL (0.0-0.1) 06/24/20 05:04 Absolute Nucleated RBC 0.00 x10^3/uL 06/24/20 05:04 Nucleated RBC % 0.0 /100WBC 06/24/20 05:04 Sodium 141 mmol/L (135-145) 06/24/20 05:04 Potassium 2.9 mmol/L (3.5-5.0) L 06/24/20 05:04 Chloride 109 mmol/L (101-111) 06/24/20 05:04 Carbon Dioxide 21 mmol/L (21-32) 06/24/20 05:04 Anion Gap 11.0 (6-13) 06/24/20 05:04 BUN 16 mg/dL (6-20) 06/24/20 05:04 Creatinine 0.8 mg/dL (0.4-1.0) 06/24/20 05:04 Estimated GFR (MDRD) 68 (>89) L 06/24/20 05:04 Glucose 122 mg/dL (70-100) H 06/24/20 05:04 Lactic Acid 1.2 mmol/L (0.5-2.2) 06/22/20 22:33 Calcium 9.4 mg/dL (8.5-10.3) 06/24/20 05:04 Phosphorus 1.9 mg/dL (2.5-4.6) L 06/24/20 05:04 Magnesium 1.6 mg/dL (1.7-2.8) L 06/24/20 05:04 Total Bilirubin 0.8 mg/dL (0.2-1.0) 06/22/20 21:21 AST 15 IU/L (10-42) 06/22/20 21:21 ALT < 10 IU/L (10-60) L 10/14/20 21:21 Alkaline Phosphatase 71 IU/L (42-121) 06/22/20 21:21 Total Creatine Kinase 181 IU/L (22-269) 06/22/20 21:21 CK-MB (CK-2) 5.3 ng/mL (0.6-6.3) 06/22/20 21:21 Troponin I High Sens 19.3 ng/L (2.3-14.8) H* 06/23/20 04:41 Total Protein 7.1 g/dL (6.7-8.2) 06/22/20 21:21 Albumin 3.4 g/dL (3.2-5.5) 06/22/20 21:21 Globulin 3.7 g/dL (2.1-4.2) 06/22/20 21: Albumin/Globulin Ratio 0.9 (1.0-2.2) L 06/22/20 21:21 Lipase 33 U/L (22-51) 06/22/20 21: TSH < 0.08 uIU/mL (0.34-5.60) L 06/23/20 04:41 Urine Color YELLOW 06/22/20 22:45 Urine Clarity HAZY (CLEAR) 06/22/20 22:45 Urine pH 6.5 PH (5.0-7.5) 06/22/20 22:45 Ur Specific [place] 1.015 (1.002-1.030) 06/22/20 22:45 Urine Protein 100 mg/dL (NEGATIVE) H 06/22/20 22:45 Urine Glucose (UA) NEGATIVE mg/dL (NEGATIVE) 06/22/20 22:45 Urine Ketones NEGATIVE mg/dL (NEGATIVE) 06/22/20 22:45 Urine Occult Blood MODERATE (NEGATIVE) H 06/22/20 22:45 Urine Nitrite NEGATIVE (NEGATIVE) 06/22/20 22:45 Urine Bilirubin NEGATIVE (NEGATIVE) 06/22/20 22:45 Urine Urobilinogen 0.2 (NORMAL) E.U./dL (NORMAL) 06/22/20 22:45 Ur Leukocyte Esterase MODERATE (NEGATIVE) H 06/22/20 22:45 Urine RBC 6-10 /HPF (0-5) H 06/22/20 22:45 Urine WBC 11-25 /HPF (0-5) H 10/14/20 22:45 Ur Squamous Epith Cells FEW Squamous (<= Few) 06/22/20 22:45 Urine Bacteria Moderate /HPF (None Seen) H 06/22/20 22:45 Ur Microscopic Review INDICATED 06/22/20 22:45 Urine Culture Comments INDICATED 06/22/20 22:45 - Procedures Procedures: Procedures EXCISION OF STOMACH, PYLORUS, ENDO, DIAGN (03/29/20) TRANSFUSE NONAUT RED BLOOD CELLS IN PERIPH VEIN, PERC (03/29/20) ABX Reporting Has patient been on IV antibiotics over the past 48 hours?: Yes Current Medications - Current Medications Current Medications: Active Medications Acetaminophen (Tylenol) 650 mg PO Q4HR PRN PRN Reason: Pain 1 to 4 Allopurinol (Zyloprim) 200 mg PO DAILY [facility] Last Admin: 06/24/20 08:39 Dose: 200 mg Documented by: Atenolol (Tenormin) 50 mg PO DAILY [facility] Last Admin: 06/24/20 08:39 Dose: 50 mg Documented by: Atorvastatin Calcium (Lipitor) 20 mg PO QPM [facility] Last Admin: 06/23/20 21:15 Dose: 20 mg Documented by: Docusate Sodium (Colace 250mg Capsule) 250 - 500 mg PO DAILY [facility] Last Admin: 06/24/20 07:55 Dose: Not Given Documented by: Enoxaparin Sodium (Lovenox) 40 mg SUBQ DAILY [facility] Last Admin: 06/24/20 08:39 Dose: 40 mg Documented by: Potassium Chloride 40 meq/ (Sodium Chloride) 520 mls @ 125 mls/hr IV ONCE VIRA Stop: 06/24/20 12:00 Last Admin: 06/24/20 08:38 Dose: 125 mls/hr Documented by: Ceftriaxone Sodium 1 gm/ (Sodium Chloride) 100 mls @ 200 mls/hr IV Q24H [facility] Levothyroxine Sodium (Synthroid) 100 mcg PO DAILY [facility] Last Admin: 06/24/20 08:39 Dose: 100 mcg Documented by: Losartan Potassium (Cozaar) 100 mg PO DAILY [facility] Last Admin: 06/24/20 08:39 Dose: 100 mg Documented by: Mineral Oil (Cavilon) 1 applic TOP PRN PRN PRN Reason: Skin Care Last Admin: 06/23/20 22:57 Dose: 1 applic Documented by: Nystatin (Nystop) 1 applic TOP BID [facility] Last Admin: 06/24/20 08:39 Dose: 1 applic Documented by: Sodium Chloride (Normal Saline Flush 0.9%) 10 ml IVP PRN PRN PRN Reason: NEEDED PER PROVIDER ORDERS Sodium Chloride (Normal Saline Flush 0.9%) 10 ml IVP 0100,0900,1700 [facility] Last Admin: 06/24/20 08:40 Dose: 10 ml Documented by: Sodium Phosphate (K-Phos Neutral) 250 mg PO TIDWM [facility] Last Admin: 06/24/20 08:39 Dose: 250 mg Documented by: Alendronate [Fosamax] 70 mg PO Q7D 10/24/18 Furosemide 40 mg PO DAILY 10/24/18 Simvastatin 40 mg PO QPM 10/24/18 Telmisartan [Micardis] 40 mg PO DAILY 10/24/18 allopurinoL [Allopurinol] 200 mg PO DAILY 10/24/18 atenoloL [Atenolol] 50 mg PO DAILY 10/24/18 Levothyroxine Sodium [Synthroid] 112 mcg PO DAILY 03/30/20 Trospium Chloride 20 mg PO DAILY 03/30/20 Cetirizine [ZyrTEC] 10 mg PO DAILY 06/22/20
[2020-06-24] MEDS: ATORVASTATIN 10 MG TABLET PO SCH (20:06)
[2020-06-24] MEDS: MIN OIL/DIMETHICON/COCONUT OIL 92 GM TUBE TOP PRN (20:07)
[2020-06-25 05:59] LABS: BASOPHILS % (AUTO) 0.6 %; EOSINOPHILS # (AUTO) 0.2 10^3/uL (0.0-0.7); EOSINOPHILS % (AUTO) 2.7 %; HGB - HEMOGLOBIN 11.9 g/dL (12.0-16.0); LYMPHOCYTES # (AUTO) 1.5 10^3/uL (1.5-3.5); LYMPHOCYTES % (AUTO) 23.1 %; MEAN CORPUSCULAR HEMOGLOBIN 29.6 pg (27.0-31.0); MEAN CORPUSCULAR HGB CONC 32.7 g/dL (32.0-36.0); MEAN CORPUSCULAR VOLUME 90.5 fL (81.0-99.0); MEAN PLATELET VOLUME 11.2 fL (7.9-10.8); MONOCYTES # (AUTO) 0.5 10^3/uL (0.0-1.0); MONOCYTES % (AUTO) 7.3 %; NEUTROPHILS # (AUTO) 4.2 10^3/uL (1.5-6.6); PLT - PLATELET COUNT 165 10^3/uL (130-450); RED BLOOD COUNT 4.02 10^6/uL (4.20-5.40); RED CELL DISTRIBUTION WIDTH 15.5 % (12.0-15.0); WHITE BLOOD COUNT 6.3 x10^3/uL (4.8-10.8)
[2020-06-25 06:09] LABS: CALCIUM 9.5 mg/dL (8.5-10.3); CREATININE 0.9 mg/dL (0.4-1.0); MAGNESIUM 2.2 mg/dL (1.7-2.8); PHOSPHORUS 2.8 mg/dL (2.5-4.6)
[2020-06-25] MEDS ORDERED: POTASSIUM CHLORIDE 20 MEQ TABLET PO ONE (07:12)
[2020-06-25] MEDS: ENOXAPARIN 40 MG/0.4 ML SYRINGE SUBQ SCH (08:02)
[2020-06-25] MEDS: allopurinoL 100 MG TABLET PO SCH (08:03)
[2020-06-25] MEDS: DOCUSATE SODIUM 250 MG CAPSULE PO SCH (08:03)
[2020-06-25] MEDS: NEUTRA-PHOS 250 MG TABLET PO SCH ×3 (08:04→17:12)
[2020-06-25] MEDS: LOSARTAN 50 MG TABLET PO SCH (08:04)
[2020-06-25] MEDS: atenoloL 25 MG TABLET PO SCH (08:04)
[2020-06-25] MEDS: NYSTATIN POWDER 15 GM TOP SCH ×2 (08:05→21:16)
[2020-06-25] MEDS: SODIUM CHLORIDE FLUSH 0.9% 10 ML SYRINGE IVP SCH ×3 (08:05→23:58)
[2020-06-25] MEDS: CEFPODOXIME PROXETIL 100 MG TABLET PO SCH ×2 (11:48→21:16)
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
[2020-06-25] MEDS: ATORVASTATIN 10 MG TABLET PO SCH (21:16)
[2020-06-26 05:14] LABS: BASOPHILS # (AUTO) 0.1 10^3/uL (0.0-0.1); EOSINOPHILS # (AUTO) 0.2 10^3/uL (0.0-0.7); EOSINOPHILS % (AUTO) 2.6 %; HGB - HEMOGLOBIN 11.3 g/dL (12.0-16.0); LYMPHOCYTES # (AUTO) 1.4 10^3/uL (1.5-3.5); LYMPHOCYTES % (AUTO) 22.7 %; MEAN CORPUSCULAR HGB CONC 31.7 g/dL (32.0-36.0); MEAN CORPUSCULAR VOLUME 91.5 fL (81.0-99.0); MEAN PLATELET VOLUME 11.1 fL (7.9-10.8); MONOCYTES # (AUTO) 0.4 10^3/uL (0.0-1.0); MONOCYTES % (AUTO) 6.5 %; NEUTROPHILS # (AUTO) 4.1 10^3/uL (1.5-6.6); NEUTROPHILS % (AUTO) 66.9 %; PLT - PLATELET COUNT 164 10^3/uL (130-450); RED BLOOD COUNT 3.89 10^6/uL (4.20-5.40); RED CELL DISTRIBUTION WIDTH 15.4 % (12.0-15.0); WHITE BLOOD COUNT 6.1 x10^3/uL (4.8-10.8)
[2020-06-26 05:27] LABS: CALCIUM 9.5 mg/dL (8.5-10.3); MAGNESIUM 1.8 mg/dL (1.7-2.8); PHOSPHORUS 2.5 mg/dL (2.5-4.6)
[2020-06-26] MEDS: LEVOTHYROXINE 75 MCG TABLET PO SCH (06:02)
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
[2020-06-26] MEDS: CEFPODOXIME PROXETIL 100 MG TABLET PO SCH ×2 (09:12→21:03)
[2020-06-26] MEDS: DOCUSATE SODIUM 250 MG CAPSULE PO SCH (09:12)
[2020-06-26] MEDS: atenoloL 25 MG TABLET PO SCH (09:15)
[2020-06-26] MEDS: NEUTRA-PHOS 250 MG TABLET PO SCH ×3 (09:16→17:29)
[2020-06-26] MEDS: LOSARTAN 50 MG TABLET PO SCH (09:16)
[2020-06-26] MEDS: allopurinoL 100 MG TABLET PO SCH (09:17)
[2020-06-26] MEDS: SODIUM CHLORIDE FLUSH 0.9% 10 ML SYRINGE IVP SCH ×3 (09:17→23:45)
[2020-06-26] MEDS: ENOXAPARIN 40 MG/0.4 ML SYRINGE SUBQ SCH (09:18)
[2020-06-26] MEDS: NYSTATIN POWDER 15 GM TOP SCH ×2 (09:18→21:06)
[2020-06-26] MEDS: MIN OIL/DIMETHICON/COCONUT OIL 92 GM TUBE TOP PRN (13:01)
[2020-06-26] MEDS: ATORVASTATIN 10 MG TABLET PO SCH (21:03)
[2020-06-26] MEDS: ACETAMINOPHEN 325 MG TABLET PO PRN (23:46)
[2020-06-27 05:08] LABS: BASOPHILS # (AUTO) 0.1 10^3/uL (0.0-0.1); BASOPHILS % (AUTO) 0.9 %; EOSINOPHILS # (AUTO) 0.2 10^3/uL (0.0-0.7); EOSINOPHILS % (AUTO) 3.8 %; HGB - HEMOGLOBIN 11.4 g/dL (12.0-16.0); LYMPHOCYTES # (AUTO) 1.4 10^3/uL (1.5-3.5); LYMPHOCYTES % (AUTO) 23.8 %; MEAN CORPUSCULAR HEMOGLOBIN 29.4 pg (27.0-31.0); MEAN CORPUSCULAR HGB CONC 31.8 g/dL (32.0-36.0); MEAN CORPUSCULAR VOLUME 92.3 fL (81.0-99.0); MEAN PLATELET VOLUME 10.6 fL (7.9-10.8); MONOCYTES # (AUTO) 0.4 10^3/uL (0.0-1.0); MONOCYTES % (AUTO) 6.7 %; NEUTROPHILS # (AUTO) 3.7 10^3/uL (1.5-6.6); NEUTROPHILS % (AUTO) 64.1 %; PLT - PLATELET COUNT 174 10^3/uL (130-450); RED BLOOD COUNT 3.88 10^6/uL (4.20-5.40); RED CELL DISTRIBUTION WIDTH 15.4 % (12.0-15.0); WHITE BLOOD COUNT 5.8 x10^3/uL (4.8-10.8)
[2020-06-27 05:20] LABS: CALCIUM 9.6 mg/dL (8.5-10.3); CREATININE 1.1 mg/dL (0.4-1.0); MAGNESIUM 1.6 mg/dL (1.7-2.8)
[2020-06-27] MEDS: LEVOTHYROXINE 75 MCG TABLET PO SCH (06:50)
[2020-06-27] MEDS: LOSARTAN 50 MG TABLET PO SCH (08:59)
[2020-06-27] MEDS: atenoloL 25 MG TABLET PO SCH (08:59)
[2020-06-27] MEDS: NEUTRA-PHOS 250 MG TABLET PO SCH ×3 (09:01→17:12)
[2020-06-27] MEDS: CEFPODOXIME PROXETIL 100 MG TABLET PO SCH ×2 (09:01→21:06)
[2020-06-27] MEDS: allopurinoL 100 MG TABLET PO SCH (09:01)
[2020-06-27] MEDS: DOCUSATE SODIUM 250 MG CAPSULE PO SCH (09:01)
[2020-06-27] MEDS: ENOXAPARIN 40 MG/0.4 ML SYRINGE SUBQ SCH (09:02)
[2020-06-27] MEDS: SODIUM CHLORIDE FLUSH 0.9% 10 ML SYRINGE IVP SCH ×3 (09:02→23:45)
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
[2020-06-27] MEDS ORDERED: LACTATED RINGERS 1,000 ML IV SCH (13:00)
[2020-06-27] MEDS: NYSTATIN POWDER 15 GM TOP SCH (13:09)
[2020-06-27] MEDS: MAGNESIUM OXIDE 400 MG TABLET PO SCH (13:10)
[2020-06-27] MEDS: SODIUM CHLORIDE FLUSH 0.9% 10 ML SYRINGE IVP PRN ×2 (13:18→22:02)
[2020-06-27] MEDS: ATORVASTATIN 10 MG TABLET PO SCH (21:06)
[2020-06-28] MEDS: LEVOTHYROXINE 75 MCG TABLET PO SCH (06:58)
[2020-06-28 07:49] LABS: CALCIUM 9.4 mg/dL (8.5-10.3); CREATININE 0.9 mg/dL (0.4-1.0)
[2020-06-28 07:50] LABS: BASOPHILS # (AUTO) 0.1 10^3/uL (0.0-0.1); EOSINOPHILS # (AUTO) 0.1 10^3/uL (0.0-0.7); EOSINOPHILS % (AUTO) 2.9 %; HGB - HEMOGLOBIN 11.7 g/dL (12.0-16.0); LYMPHOCYTES # (AUTO) 1.3 10^3/uL (1.5-3.5); LYMPHOCYTES % (AUTO) 26.9 %; MEAN CORPUSCULAR HEMOGLOBIN 29.5 pg (27.0-31.0); MEAN CORPUSCULAR VOLUME 89.6 fL (81.0-99.0); MEAN PLATELET VOLUME 10.4 fL (7.9-10.8); MONOCYTES # (AUTO) 0.4 10^3/uL (0.0-1.0); MONOCYTES % (AUTO) 7.9 %; NEUTROPHILS # (AUTO) 2.9 10^3/uL (1.5-6.6); NEUTROPHILS % (AUTO) 60.5 %; PLT - PLATELET COUNT 176 10^3/uL (130-450); RED BLOOD COUNT 3.96 10^6/uL (4.20-5.40); RED CELL DISTRIBUTION WIDTH 14.9 % (12.0-15.0); WHITE BLOOD COUNT 4.8 x10^3/uL (4.8-10.8)
[2020-06-28] MEDS: NEUTRA-PHOS 250 MG TABLET PO SCH ×3 (08:48→17:23)
[2020-06-28] MEDS: DOCUSATE SODIUM 250 MG CAPSULE PO SCH (08:50)
[2020-06-28] MEDS: allopurinoL 100 MG TABLET PO SCH (08:51)
[2020-06-28] MEDS: CEFPODOXIME PROXETIL 100 MG TABLET PO SCH ×2 (08:52→20:25)
[2020-06-28] MEDS: atenoloL 25 MG TABLET PO SCH (08:52)
[2020-06-28] MEDS: LOSARTAN 50 MG TABLET PO SCH (08:52)
[2020-06-28] MEDS: SODIUM CHLORIDE FLUSH 0.9% 10 ML SYRINGE IVP SCH ×3 (08:58→23:44)
[2020-06-28] MEDS: ENOXAPARIN 40 MG/0.4 ML SYRINGE SUBQ SCH (08:59)
[2020-06-28] MEDS: MAGNESIUM OXIDE 400 MG TABLET PO SCH (11:04)
--- NOTE | 2020-06-28 14:20 | Discharge Plan ---
"Discharge Plan for SNF / [facility] - Discharge Plan And Transition Orders Problem Reviewed?: Yes Disposition: 03 SNF DC/Xfer Condition: Stable Allergies and Adverse Reactions: Allergies Allergy/AdvReac Type Severity Reaction Status Date / Time cephalexin Allergy Unknown Verified 06/22/20 20:50 citalopram [From Celexa] Allergy Unknown Verified 06/22/20 20:50 doxycycline Allergy Unknown Verified 06/22/20 20:50 fluticasone [From Flonase] Allergy Unknown Verified 06/22/20 20:50 meperidine [From Demerol] Allergy Unknown Verified 06/22/20 20:50 Penicillins Allergy Unknown Verified 06/22/20 20:50 Sulfa (Sulfonamide Allergy Unknown Verified 06/22/20 20:50 Antibiotics) aspirin AdvReac Emesis Verified 06/22/20 20:50 scotch broom Allergy Unknown Uncoded 06/22/20 20:50 Health Concerns: fall/weakness, dehydration, hypothyroidism Plan of Treatment: PT/OT in SNF and prevention of fall. continue nurse home care, and encourage pt hydration and nutrition. her UTI treatment will be finished on today pt's TSH is very low, her synthroid is reduced, followup with PCP to continue management Care Goals: stabilization and improvement Assessment: discussed the care plan with pt, she stated she understood - SNF / [facility] Transition Orders Admit to (Facility): [facility] Under the care of (Name): medical provider of [facility] Discharge Diagnosis: UTI, AMS, weakness, Dementia, dehydration, HTN, hypothyroidism, Medicare Certification Statement: [facility] cert[facility] medically necessary on a continuing basis for any of the conditions for which she/he is receiving care during hospitalization. Notify PCP of admission and forward orders to primary provider for signature. Weight on admission and: Daily Call PCP immediately if weight increases by: 2 kg Other Notification Orders: Call PCP immediately if patient develops dyspnea, chest pain/tightness or edema. House Bowel Program: Yes Additional Bowel Program Orders: If no BM after 2 days, nurse may give M.O.M. 30ml PO PRN and/or ducolax Supp 1 OK and/or SAMUEL 250mg P.O., and/or senna 1-2 tabs PO. On day 3 nurse may give repeat above order until residents constipation is resolved. Annual Influenza Vaccine (between May 10 and December 07): Yes Two-step PPD per [facility] [id number] or approved exception documents: Yes Treatments & Other Orders: PT/OT in SNF and prevention of fall. continue nurse home care, and encourage pt hydration and nutrition. her UTI treatment will be finished on today. pt's TSH is very low, her synthroid is reduced, followup with PCP to continue management Medication Orders: PLEASE REFER TO THE DISCHARGE MEDICATION LIST. Insulin Orders?: No - Medications New Prescriptions: Levothyroxine [Synthroid] 75 mcg PO QDAC #30 tablet - Diet Type: Geriatric Texture: Regular Liquids: Thin May have monthly special meal: Yes - Therapies | Activity Therapy: Evaluation | Treat if indicated: PT, OT Rehabilitation Potential: Maximize functional status Activity: Activity as Tolerated"
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
[2020-06-28] MEDS: SACCHAROMYCES BOULARDII 250 MG CAPSULE PO SCH (17:23)
[2020-06-28] MEDS: ZINC OXIDE 20% OINT 30 GM TUBE TOP PRN (17:23)
[2020-06-28] MEDS: ATORVASTATIN 10 MG TABLET PO SCH (20:24)
[2020-06-28] MEDS: ACETAMINOPHEN 325 MG TABLET PO PRN (23:44)
[2020-06-29] MEDS: ZINC OXIDE 20% OINT 30 GM TUBE TOP PRN ×2 (00:15→06:12)
[2020-06-29 05:50] LABS: BASOPHILS # (AUTO) 0.1 10^3/uL (0.0-0.1); BASOPHILS % (AUTO) 0.9 %; EOSINOPHILS # (AUTO) 0.2 10^3/uL (0.0-0.7); EOSINOPHILS % (AUTO) 3.4 %; HGB - HEMOGLOBIN 11.7 g/dL (12.0-16.0); LYMPHOCYTES # (AUTO) 1.5 10^3/uL (1.5-3.5); MEAN CORPUSCULAR HEMOGLOBIN 28.8 pg (27.0-31.0); MEAN CORPUSCULAR HGB CONC 31.9 g/dL (32.0-36.0); MEAN CORPUSCULAR VOLUME 90.4 fL (81.0-99.0); MEAN PLATELET VOLUME 10.8 fL (7.9-10.8); MONOCYTES # (AUTO) 0.5 10^3/uL (0.0-1.0); MONOCYTES % (AUTO) 8.8 %; NEUTROPHILS # (AUTO) 3.1 10^3/uL (1.5-6.6); NEUTROPHILS % (AUTO) 58.1 %; PLT - PLATELET COUNT 183 10^3/uL (130-450); RED BLOOD COUNT 4.06 10^6/uL (4.20-5.40); RED CELL DISTRIBUTION WIDTH 15.2 % (12.0-15.0); WHITE BLOOD COUNT 5.3 x10^3/uL (4.8-10.8)
[2020-06-29] MEDS: LEVOTHYROXINE 75 MCG TABLET PO SCH (05:54)
[2020-06-29 05:59] LABS: CALCIUM 9.4 mg/dL (8.5-10.3)
[2020-06-29] MEDS ORDERED: MULTIVITAMIN W/MINERALS TABLET PO SCH (08:00)
[2020-06-29] MEDS: LOSARTAN 50 MG TABLET PO SCH (09:46)
[2020-06-29] MEDS: CEFPODOXIME PROXETIL 100 MG TABLET PO SCH (09:47)
[2020-06-29] MEDS: atenoloL 25 MG TABLET PO SCH (09:47)
[2020-06-29] MEDS: allopurinoL 100 MG TABLET PO SCH (09:48)
[2020-06-29] MEDS: SACCHAROMYCES BOULARDII 250 MG CAPSULE PO SCH (09:49)
[2020-06-29] MEDS: DOCUSATE SODIUM 250 MG CAPSULE PO SCH (09:49)
[2020-06-29] MEDS: NEUTRA-PHOS 250 MG TABLET PO SCH ×2 (09:50→12:16)
[2020-06-29] MEDS: ENOXAPARIN 40 MG/0.4 ML SYRINGE SUBQ SCH (09:59)
[2020-06-29] MEDS: SODIUM CHLORIDE FLUSH 0.9% 10 ML SYRINGE IVP SCH (10:00)
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
[2020-06-29 11:34] VITALS: BP 131/65
[2020-06-29] MEDS: MAGNESIUM OXIDE 400 MG TABLET PO SCH (12:16)
== END 2020-06-29 13:53 | DRG 690 ==
LOC: ED 20:35 → MS2 06-23 00:20 → OBSVTOIN 06-23 10:24
PROVIDERS: ADMIT Nurse Practitioner Gerontology; ATTEND Nurse Practitioner Gerontology
DX: N30.00 Acute cystitis without hematuria (principal); T74.01XA Adult neglect or abandonment, confirmed, initial encounter; I48.92 Unspecified atrial flutter; N18.4 Chronic kidney disease, stage 4 (severe); M54.9 Dorsalgia, unspecified; B96.4 Proteus (mirabilis) (morganii) as the cause of diseases classified elsewhere; R82.71 Bacteriuria; F03.90 Unspecified dementia, unspecified severity, without behavioral disturbance, psychotic disturbance, mood disturbance, and anxiety; E86.0 Dehydration; I12.9 Hypertensive chronic kidney disease with stage 1 through stage 4 chronic kidney disease, or unspecified chronic kidney disease; F09 Unspecified mental disorder due to known physiological condition; E03.9 Hypothyroidism, unspecified; Z87.440 Personal history of urinary (tract) infections; Z87.11 Personal history of peptic ulcer disease; R53.1 Weakness; Z85.118 Personal history of other malignant neoplasm of bronchus and lung; Z85.528 Personal history of other malignant neoplasm of kidney; R31.9 Hematuria, unspecified; Z66 Do not resuscitate; R41.0 Disorientation, unspecified; Z87.891 Personal history of nicotine dependence; B37.2 Candidiasis of skin and nail; Z20.828 Contact with and (suspected) exposure to other viral communicable diseases
CPT/HCPCS: 36415; 70450; 71045; 72125; 72170; 80048; 80053; 81001; 82550; 82553; 83605; 83690; 83735; 84100; 84443; 84484; 85025; 87077; 87086; 87181; 93005; 96361; 96372; 96374; 97161; 97165; 97530; 99284; 99285; A9270; G0378; J1650; J7120; U0004; 81003

== ENCOUNTER 2020-09-01 10:00 | Outpatient (CLI) | payer MEDICARE, OTHER ==
[2020-09-01 14:46] LABS: BASOPHILS # (AUTO) 0.1 10^3/uL (0.0-0.1); BASOPHILS % (AUTO) 0.6 %; EOSINOPHILS # (AUTO) 0.1 10^3/uL (0.0-0.7); EOSINOPHILS % (AUTO) 1.4 %; LYMPHOCYTES # (AUTO) 1.1 10^3/uL (1.5-3.5); LYMPHOCYTES % (AUTO) 13.8 %; MEAN CORPUSCULAR HEMOGLOBIN 30.3 pg (27.0-31.0); MEAN CORPUSCULAR VOLUME 94.8 fL (81.0-99.0); MONOCYTES # (AUTO) 0.7 10^3/uL (0.0-1.0); MONOCYTES % (AUTO) 8.7 %; NEUTROPHILS # (AUTO) 5.9 10^3/uL (1.5-6.6); NEUTROPHILS % (AUTO) 74.7 %; PLT - PLATELET COUNT 232 10^3/uL (130-450); RED BLOOD COUNT 3.63 10^6/uL (4.20-5.40); RED CELL DISTRIBUTION WIDTH 16.6 % (12.0-15.0); WHITE BLOOD COUNT 7.8 x10^3/uL (4.8-10.8)
[2020-09-01 14:56] LABS: ALBUMIN 3.4 g/dL (3.2-5.5); ALBUMIN/GLOBULIN RATIO 0.8 (1.0-2.2); BILIRUBIN,TOTAL 0.3 mg/dL (0.2-1.0); CALCIUM 9.8 mg/dL (8.5-10.3); CREATININE 1.2 mg/dL (0.4-1.0); TOTAL PROTEIN 7.5 g/dL (6.7-8.2); URIC ACID 5.1 mg/dL (2.6-7.2)
[2020-09-01 15:09] LABS: HEMOGLOBIN A1c% 6.5 % (4.27-6.07)
[2020-09-01 16:11] LABS: FREE T4 (FREE THYROXINE) 0.95 ng/dL (0.58-1.64)
== END 2020-09-01 10:01 | disposition home or self-care (01) ==
LOC: LAB.N 10:00
PROVIDERS: ATTEND Family Medicine
DX: E11.22 Type 2 diabetes mellitus with diabetic chronic kidney disease (principal); N18.30 Chronic kidney disease, stage 3 unspecified; E89.0 Postprocedural hypothyroidism; M10.9 Gout, unspecified
CPT/HCPCS: 36415; 80053; 83036; 84439; 84443; 84550; 85025

== ENCOUNTER 2020-09-06 14:55 | Emergency (ER) | payer MEDICARE, OTHER ==
[2020-09-06 15:40] LABS: BILIRUBIN,URINE NEGATIVE (NEGATIVE); GLUCOSE, URINE (UA) NEGATIVE (NEGATIVE); KETONES,URINE (UA) NEGATIVE (NEGATIVE); LEUKOCYTE ESTERASE, URINE SMALL (NEGATIVE); NITRITE,URINE POSITIVE (NEGATIVE); OCCULT BLOOD,URINE TRACE-INTA (NEGATIVE); PROTEIN,URINE 100 mg/dL (NEGATIVE); UROBILINOGEN,URINE 0.2 (NORMAL) E.U./dL (NORMAL)
[2020-09-06 15:49] LABS: CLARITY,URINE CLOUDY (CLEAR)
[2020-09-06 15:50] LABS: BACTERIA,URINE Few /HPF (None Seen); RBC,URINE 0-5 /HPF (0-5); SQUAMOUS EPITHELIAL CELL,UR RARE Squamous (<= Few); WBC,URINE >25 /HPF (0-5)
[2020-09-06] MEDS ORDERED: CIPROFLOXACIN 250 MG TABLET PO STA (15:52)
[2020-09-06 15:53] LABS: BASOPHILS # (AUTO) 0.1 10^3/uL (0.0-0.1); BASOPHILS % (AUTO) 0.6 %; EOSINOPHILS # (AUTO) 0.1 10^3/uL (0.0-0.7); HCT - HEMATOCRIT 30.7 % (37.0-47.0); HGB - HEMOGLOBIN 9.8 g/dL (12.0-16.0); LYMPHOCYTES # (AUTO) 1.2 10^3/uL (1.5-3.5); LYMPHOCYTES % (AUTO) 14.3 %; MEAN CORPUSCULAR HEMOGLOBIN 29.4 pg (27.0-31.0); MEAN CORPUSCULAR HGB CONC 31.9 g/dL (32.0-36.0); MEAN CORPUSCULAR VOLUME 92.2 fL (81.0-99.0); MEAN PLATELET VOLUME 10.5 fL (7.9-10.8); MONOCYTES # (AUTO) 0.7 10^3/uL (0.0-1.0); MONOCYTES % (AUTO) 8.4 %; NEUTROPHILS # (AUTO) 6.5 10^3/uL (1.5-6.6); PLT - PLATELET COUNT 259 10^3/uL (130-450); RED BLOOD COUNT 3.33 10^6/uL (4.20-5.40); WHITE BLOOD COUNT 8.6 x10^3/uL (4.8-10.8)
[2020-09-06] MEDS ORDERED: PHENAZOPYRIDINE 100 MG TABLET PO STA (15:53)
--- NOTE | 2020-09-06 15:55 | ED Physician Documentation ---
PD HPI FEMALE - Stated complaint Stated Complaint: FEMALE - Chief complaint Chief Complaint: UTI - History obtained from History obtained from: Patient, Caregiver - History of Present Illness Timing - onset: Today, Yesterday Timing - duration: Days (1-2) Timing - details: Abrupt onset, Still present Associated symptoms: Fever (reported mild fever today at [facility] Dysuria, Hematuria Similar symptoms before: Diagnosis (UTIs) Recently seen: Not recently seen Review of Systems Constitutional: reports: Fever (reported earlier today at 100.2) Nose: denies: Rhinorrhea / runny nose, Congestion Throat: denies: Sore throat Respiratory: denies: Cough GI: denies: Nausea, Vomiting : reports: Dysuria, Hematuria Skin: denies: Rash Musculoskeletal: reports: Back pain (mild on right). 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 04/01/20 09/06/20 Cetirizine [ZyrTEC] 10 mg PO DAILY 06/22/20 09/06/20 Levothyroxine [Synthroid] 75 mcg PO QDAC #30 tablet 06/29/20 09/06/20 Ciprofloxacin [Cipro] 250 mg PO BID #12 tablet 09/06/20 - Allergies Allergies/Adverse Reactions: Allergies Allergy/AdvReac Type Severity Reaction Status Date / Time cephalexin Allergy Unknown Verified 09/06/20 14:58 citalopram [From Celexa] Allergy Unknown Verified 09/06/20 14:58 doxycycline Allergy Unknown Verified 09/06/20 14:58 fluticasone [From Flonase] Allergy Unknown Verified 09/06/20 14:58 meperidine [From Demerol] Allergy Unknown Verified 09/06/20 14:58 Penicillins Allergy Unknown Verified 09/06/20 14:58 Sulfa (Sulfonamide Allergy Unknown Verified 09/06/20 14:58 Antibiotics) aspirin AdvReac Emesis Verified 09/06/20 14:58 scotch broom Allergy Unknown Uncoded 06/22/20 20:50 - Social History Does the pt smoke?: No Smoking Status: Never smoker Does the pt drink ETOH?: No Does the pt have substance abuse?: No - Immunizations Immunizations are current?: Yes - POLST Patient has POLST: No PD ED PE NORMAL - Vitals Vital signs reviewed: Yes - General General: Alert and oriented X 3, No acute distress, Well developed/nourished - Cardiac Cardiac: RRR, No murmur - Respiratory Respiratory: Clear bilaterally - Abdomen Abdomen: Normal bowel sounds, Soft, Non tender, Non distended, No organomegaly - Female Female : Deferred - Rectal Rectal: Deferred - Back Back: No CVA TTP - Derm Derm: Normal color, Warm and dry - Extremities Extremities: No tenderness to palpate, Normal ROM s pain, No edema, No calf tenderness / cord - Neuro Neuro: Alert and oriented X 3, No motor deficit, Normal speech Results - Vitals Vitals: Vital Signs - 24 hr 09/06/20 09/06/20 14:59 16:56 Temperature 37.4 C 37.2 C Heart Rate 72 64 Respiratory 18 24 Rate Blood Pressure 153/76 H 158/84 H O2 Saturation 96 97 Oxygen O2 Source Room air - Labs Labs: Laboratory Tests 09/06/20 09/06/20 09/06/20 15:27 15:34 15:34 WBC 8.6 RBC 3.33 L Hgb 9.8 L Hct 30.7 L MCV 92.2 MCH 29.4 MCHC 31.9 L RDW 16.0 H Plt Count 259 MPV 10.5 Neut # (Auto) 6.5 Lymph # (Auto) 1.2 L [place] # (Auto) 0.7 Eos # (Auto) 0.1 Baso # (Auto) 0.1 Absolute Nucleated RBC 0.00 Nucleated RBC % 0.0 Sodium 136 Potassium 4.8 Chloride 104 Carbon Dioxide 22 Anion Gap 10.0 BUN 30 H Creatinine 1.5 H Estimated GFR (MDRD) 33 L Glucose 117 H Calcium 10.0 Urine Color YELLOW Urine Clarity CLOUDY Urine pH 7.0 Ur Specific [place] 1.020 Urine Protein 100 H Urine Glucose (UA) NEGATIVE Urine Ketones NEGATIVE Urine Occult Blood TRACE-INTA Urine Nitrite POSITIVE H Urine Bilirubin NEGATIVE Urine Urobilinogen 0.2 (NORMAL) Ur Leukocyte Esterase SMALL H Urine RBC 0-5 Urine WBC >25 H Ur Squamous Epith Cells RARE Squamous Urine Bacteria Few Ur Microscopic Review INDICATED Urine Culture Comments INDICATED PD MEDICAL DECISION MAKING - ED course Complexity details: reviewed results (She has symptoms consistent with UTI and no urinalysis to corroborate. She has multiple allergies so needing to choose a quinolone as not seeing an alternative. She is given Cipro and Pyridium.), considered differential, d/w patient Departure - Departure Disposition: Home, Self Care Clinical Impression: Dysuria UTI (urinary tract infection) Qualifiers: Urinary tract infection type: acute cystitis Hematuria presence: with hematuria Qualified Code(s): N30.01 - Acute cystitis with hematuria Condition: Stable Record reviewed to determine appropriate education?: Yes Instructions: ED UTI Cystitis Female Follow-Up: Danielle Izaguirre DO [Primary Care Provider] - Prescriptions: Ciprofloxacin [Cipro] 250 mg PO BID #12 tablet Comments: Your urine does show signs of a bladder infection. White count is normal and your kidney function is similar to your baseline. You do not appear to have a severe urinary tract infection at this point. Given your multiple allergies to other antibiotics, we will choose ciprofloxacin twice daily for 6 days for this infection. Stay well-hydrated and use your usual medicines. Recheck if worsening symptoms such as worse back pain, fevers, vomiting, abdominal pain. Recheck also if your urinary discomfort does not improved over the next several days. Discharge Date/Time: 09/06/20 16:58
[2020-09-06 16:04] LABS: CREATININE 1.5 mg/dL (0.4-1.0); POTASSIUM 4.8 mmol/L (3.5-5.0)
[2020-09-06 16:58] VITALS: BP 158/84
== END 2020-09-06 16:58 | disposition home or self-care (01) ==
LOC: ED 14:55
DX: N30.01 Acute cystitis with hematuria (principal); I10 Essential (primary) hypertension; Z88.1 Allergy status to other antibiotic agents; Z88.0 Allergy status to penicillin; Z88.2 Allergy status to sulfonamides
CPT/HCPCS: 36415; 51701; 80048; 81001; 85025; 87077; 87086; 87181; 99283; A9270; 81003

== ENCOUNTER 2020-11-10 06:56 | Outpatient (CLI) | payer MEDICARE, OTHER | END 2020-11-10 06:57 | disposition critical access hospital (66) | LOC: EMS 06:56 | PROVIDERS: ATTEND Emergency Medicine | DX: R41.0 Disorientation, unspecified (principal) | CPT/HCPCS: A0425; A0429 ==

== ENCOUNTER 2020-11-10 07:16 | Emergency (ER) | payer MEDICARE, OTHER ==
[2020-11-10 08:15] LABS: BASOPHILS # (AUTO) 0.1 10^3/uL (0.0-0.1); BASOPHILS % (AUTO) 0.7 %; EOSINOPHILS # (AUTO) 0.1 10^3/uL (0.0-0.7); EOSINOPHILS % (AUTO) 1.5 %; HGB - HEMOGLOBIN 11.9 g/dL (12.0-16.0); LYMPHOCYTES # (AUTO) 1.5 10^3/uL (1.5-3.5); MEAN CORPUSCULAR HEMOGLOBIN 31.2 pg (27.0-31.0); MEAN CORPUSCULAR HGB CONC 32.2 g/dL (32.0-36.0); MEAN CORPUSCULAR VOLUME 96.9 fL (81.0-99.0); MEAN PLATELET VOLUME 10.5 fL (7.9-10.8); MONOCYTES # (AUTO) 0.6 10^3/uL (0.0-1.0); MONOCYTES % (AUTO) 7.3 %; NEUTROPHILS # (AUTO) 5.9 10^3/uL (1.5-6.6); PLT - PLATELET COUNT 190 10^3/uL (130-450); RED BLOOD COUNT 3.82 10^6/uL (4.20-5.40); RED CELL DISTRIBUTION WIDTH 16.3 % (12.0-15.0); WHITE BLOOD COUNT 8.2 x10^3/uL (4.8-10.8)
[2020-11-10 08:31] LABS: ALBUMIN 3.7 g/dL (3.2-5.5); BILIRUBIN,TOTAL 0.6 mg/dL (0.2-1.0); CALCIUM 10.2 mg/dL (8.5-10.3); CREATININE 1.6 mg/dL (0.4-1.0); POTASSIUM 4.6 mmol/L (3.5-5.0); TOTAL PROTEIN 7.5 g/dL (6.7-8.2)
--- NOTE | 2020-11-10 08:40 | ED Physician Documentation ---
History of Present Illness - Stated complaint Stated Complaint: GLF - Chief complaint Chief Complaint: General - History obtained from History obtained from: Patient, EMS - History of Present Illness Timing: Today Pain level max: 0 Pain level now: 0 - Additonal information Additional information: Patient is an 85-year-old female with severe dementia of the lives at [facility]. She was brought in today by EMS. She is unable to give any history. Reportedly she has had 3 falls over the past 3 days. No injuries. The facility states that "she is more confused than usual". They are unable to say how she is more confused. Patient denies any complaints. 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 04/01/20 11/10/20 Cetirizine [ZyrTEC] 10 mg PO DAILY 06/22/20 11/10/20 Levothyroxine [Synthroid] 75 mcg PO QDAC #30 tablet 06/29/20 11/10/20 Cefpodoxime Proxetil [Vantin] 100 mg PO Q12H #10 tablet 11/10/20 Telmisartan [Micardis] 40 mg DAILY 11/10/20 11/10/20 - Allergies Allergies/Adverse Reactions: Allergies Allergy/AdvReac Type Severity Reaction Status Date / Time cephalexin Allergy Unknown Verified 11/10/20 07:44 citalopram [From Celexa] Allergy Unknown Verified 11/10/20 07:44 doxycycline Allergy Unknown Verified 11/10/20 07:44 fluticasone [From Flonase] Allergy Unknown Verified 11/10/20 07:44 meperidine [From Demerol] Allergy Unknown Verified 11/10/20 07:44 Penicillins Allergy Unknown Verified 11/10/20 07:44 Sulfa (Sulfonamide Allergy Unknown Verified 11/10/20 07:44 Antibiotics) aspirin AdvReac Emesis Verified 11/10/20 07:44 scotch broom Allergy Unknown Uncoded 11/10/20 07:44 - Social History Does the pt smoke?: No Smoking Status: Never smoker Does the pt drink ETOH?: No Does the pt have substance abuse?: No - Immunizations Immunizations are current?: Yes - POLST Patient has POLST: No PD ED PE NORMAL - Vitals Vital signs reviewed: Yes - General General: No acute distress, Well developed/nourished, Other (Not oriented to place or time. Oriented to self. Alert, pleasant) - HEENT HEENT: Atraumatic, PERRL, Moist mucous membranes - Neck Neck: Supple, no meningeal sign - Cardiac Cardiac: RRR, Strong equal pulses - Respiratory Respiratory: No respiratory distress, Clear bilaterally - Abdomen Abdomen: Soft, Non tender, Non distended - Back Back: No spinal TTP - Derm Derm: Warm and dry - Extremities Extremities: No edema, No calf tenderness / cord - Neuro Neuro: No motor deficit, No sensory deficit, Other (alert) - Psych Psych: Normal mood Results - Vitals Vitals: Vital Signs - 24 hr 11/10/20 11/10/20 11/10/20 07:15 08:35 11:57 Temperature 36.6 C 36.3 C L Heart Rate 70 77 72 Respiratory 18 18 20 Rate Blood Pressure 173/89 H 164/77 H 157/89 H O2 Saturation 100 99 97 Oxygen O2 Source Room air - Labs Labs: Laboratory Tests 11/10/20 11/10/20 11/10/20 08:07 08:07 10:00 WBC 8.2 RBC 3.82 L Hgb 11.9 L Hct 37.0 MCV 96.9 MCH 31.2 H MCHC 32.2 RDW 16.3 H Plt Count 190 MPV 10.5 Neut # (Auto) 5.9 Lymph # (Auto) 1.5 [place] # (Auto) 0.6 Eos # (Auto) 0.1 Baso # (Auto) 0.1 Absolute Nucleated RBC 0.00 Nucleated RBC % 0.0 Sodium 140 Potassium 4.6 Chloride 105 Carbon Dioxide 24 Anion Gap 11.0 BUN 38 H Creatinine 1.6 H Estimated GFR (MDRD) 31 L Glucose 137 H Calcium 10.2 Total Bilirubin 0.6 AST 22 ALT 19 Alkaline Phosphatase 66 Total Protein 7.5 Albumin 3.7 Globulin 3.8 Albumin/Globulin Ratio 1.0 Lipase 45 Urine Color YELLOW Urine Clarity HAZY Urine pH 7.0 Ur Specific [place] 1.020 Urine Protein >=300 H Urine Glucose (UA) NEGATIVE Urine Ketones NEGATIVE Urine Occult Blood SMALL H Urine Nitrite NEGATIVE Urine Bilirubin NEGATIVE Urine Urobilinogen 0.2 (NORMAL) Ur Leukocyte Esterase SMALL H Urine RBC 6-10 H Urine WBC >25 H Urine WBC Clumps PRESENT Ur Squamous Epith Cells RARE Squamous Urine Bacteria Few Ur Microscopic Review INDICATED Urine Culture Comments INDICATED - Rads (name of study) head CT Radiology: Prelim report reviewed, EMP read contemporaneously, See rad report PD MEDICAL DECISION MAKING - ED course Complexity details: reviewed old records, reviewed results, re-evaluated patient, considered differential, d/w patient ED course: 85-year-old female with significant dementia sent in for weakness and "more altered than usual. Found to have a UTI. We will place on antibiotics. She is well-appearing, nontoxic. Afebrile. No evidence of urosepsis. No acute findings on head CT. No significant lab abnormalities. This document was made in part using voice recognition software. While efforts are made to proofread this document, sound alike and grammatical errors may occur. IMPRESSION: Highly limited exam secondary to significant patient motion artifact. No gross evidence of acute intracranial process. Departure - Departure Disposition: 01 Home, Self Care Clinical Impression: UTI (urinary tract infection) Qualifiers: Urinary tract infection type: acute cystitis Hematuria presence: without hematuria Qualified Code(s): N30.00 - Acute cystitis without hematuria Condition: Good Instructions: ED UTI Cystitis Female Follow-Up: Danielle Izaguirre DO [Primary Care Provider] - Within 1 week Prescriptions: Cefpodoxime Proxetil [Vantin] 100 mg PO Q12H #10 tablet Comments: Take all antibiotics until gone. Return if you worsen. Follow-up with your doctor for further care. You do have a UTI today. Discharge Date/Time: 11/10/20 11:54
--- NOTE | 2020-11-10 09:42 | CT Report ---
PROCEDURE: HEAD WO INDICATIONS: Trauma, multiple falls, ALOC TECHNIQUE: Noncontrast 4.5 mm thick angled axial sections acquired from the foramen magnum to the vertex. For r adiation dose reduction, the following was used: automated exposure control, adjustment of mA and/or kV according to patient size. COMPARISON: 06/22/[address] FINDINGS: Image quality: Degraded by patient motion artifact. CSF spaces: Basal cisterns are patent. No extra-axial fluid collections. Ventricles are normal in size and shape. Brain: Global cerebral volume loss and chronic microvascular ischemic changes similar to the prior s tudy. No midline shift. No gross evidence of intracranial masses or hemorrhage. Barragan-white matter i nterface is normal. Skull and face: Calvarium and visualized facial bones are intact, without suspicious lesions. Sinuses: Visualized sinuses and mastoids are clear. IMPRESSION: Highly limited exam secondary to significant patient motion artifact. No gross evidence of acute intr acranial process. Reviewed by: Raji Mueller MD on 11/10/2020 9:40 AM PST Approved by: Raji Mueller MD on 11/10/2020 9:40 AM PST Station ID: [id number]
[2020-11-10 10:17] LABS: BILIRUBIN,URINE NEGATIVE (NEGATIVE); GLUCOSE, URINE (UA) NEGATIVE (NEGATIVE); KETONES,URINE (UA) NEGATIVE (NEGATIVE); LEUKOCYTE ESTERASE, URINE SMALL (NEGATIVE); NITRITE,URINE NEGATIVE (NEGATIVE); OCCULT BLOOD,URINE SMALL (NEGATIVE); PROTEIN,URINE >=300 mg/dL (NEGATIVE); UROBILINOGEN,URINE 0.2 (NORMAL) E.U./dL (NORMAL)
[2020-11-10 10:19] LABS: CLARITY,URINE HAZY (CLEAR)
[2020-11-10 10:23] LABS: BACTERIA,URINE Few /HPF (None Seen); SQUAMOUS EPITHELIAL CELL,UR RARE Squamous (<= Few); WBC CLUMPS,URINE PRESENT; WBC,URINE >25 /HPF (0-5)
[2020-11-10] MEDS ORDERED: CEFPODOXIME PROXETIL 100 MG TABLET PO STA (10:50)
[2020-11-10 11:58] VITALS: BP 157/89
== END 2020-11-10 11:54 | disposition home or self-care (01) ==
LOC: EDUNIT# → ED 07:16
DX: N30.00 Acute cystitis without hematuria (principal); F03.90 Unspecified dementia, unspecified severity, without behavioral disturbance, psychotic disturbance, mood disturbance, and anxiety; R53.1 Weakness; R29.6 Repeated falls; I10 Essential (primary) hypertension
CPT/HCPCS: 70450; 80053; 81001; 83690; 85025; 87077; 87086; 87181; 99281; 99284; A9270; 81003

== ENCOUNTER 2020-11-12 06:39 | Outpatient (CLI) | payer MEDICARE, OTHER | END 2020-11-12 06:40 | disposition critical access hospital (66) | LOC: EMS 06:39 | PROVIDERS: ATTEND Emergency Medicine | DX: R41.0 Disorientation, unspecified (principal); R51.9 Headache, unspecified; M54.2 Cervicalgia; M25.559 Pain in unspecified hip | CPT/HCPCS: A0425; A0429 ==

== ENCOUNTER 2020-11-12 06:56 | Emergency (ER) | payer MEDICARE, OTHER ==
--- NOTE | 2020-11-12 07:08 | ED Physician Documentation ---
PD HPI Fall - Stated complaint Stated Complaint: GLF - Chief complaint Chief Complaint: Heent - History obtained from History obtained from: Patient - History of Present Illness Mechanism of injury: Slipped Fall distance: Standing position (Assumed fall from standing as she was found bedside by caregivers this morning. She had fallen several times over the last few days. Seen for injury to her head recently. No report of back pain at that time. She complained of lower back and upper thoracic pain today. Unclear if new injury today.) Where injury occurred: Home ([facility] (?memory care)) Timing - onset: Today Injury(ies) location: Back (some pain upper thoracic area, mostly complains thoracolumbar area.). No: Neck, Abdomen Associated symptoms: No: AMS (seems alert with poor short term memory, baseline per caregivers via medics.) Worsens with: Movement Contributing factors: No: Anticoagulated Similar symptoms before: Has not had sx before Recently seen: Emergency Dept Review of Systems Unable to obtain: Dementia (limited, but can answer questions in the moment, and some history from EMS.) Constitutional: denies: Fever Cardiac: denies: Chest pain / pressure Respiratory: denies: Cough GI: denies: Abdominal Pain, Vomiting, Diarrhea Neurologic: denies: Focal weakness, Numbness, Headache PD PAST MEDICAL HISTORY - Past Medical History Cardiovascular: Hypertension Respiratory: COPD Neuro: Dementia Endocrine/Autoimmune: HyPOthyroidism GI: Other : Incontinence, Renal insuffiency HEENT: Chronic hearing loss Psych: Anxiety, Panic attacks Derm: None - Past Surgical History Past Surgical History: Yes 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, 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 HEENT: Cataracts - Present Medications Home Medications: Ambulatory Orders Medication Instructions Recorded Confirmed Simvastatin 40 mg PO QPM 10/24/18 11/12/20 allopurinoL [Allopurinol] 200 mg PO DAILY 10/24/18 11/12/20 atenoloL [Atenolol] 50 mg PO DAILY 10/24/18 11/12/20 Trospium Chloride 20 mg PO DAILY 03/30/20 11/12/20 Cetirizine [ZyrTEC] 5 mg PO DAILY 06/22/20 11/12/20 Levothyroxine [Synthroid] 75 mcg PO QDAC #30 tablet 06/29/20 11/12/20 Telmisartan [Micardis] 40 mg DAILY 11/10/20 11/12/20 Acetaminophen [Acetaminophen Extra 500 mg PO Q8HR 11/12/20 11/12/20 Strength] Alendronate [Fosamax] 70 mg PO Q7D 11/12/20 11/12/20 Magnesium Hydroxide [Milk of 5 ml PO DAILY PRN 11/12/20 11/12/20 Magnesia] Melatonin 6 mg PO HS 11/12/20 11/12/20 Multivitamin W/Minerals [Theragran 1 each PO DAILY 11/12/20 11/12/20 M] Nitrofurantoin Macrocrystal 100 mg PO BID 11/12/20 11/12/20 [Macrodantin] Omeprazole 40 mg PO DAILY 11/12/20 11/12/20 Senna [Senokot] 1 tab PO DAILY 11/12/20 11/12/20 - Allergies Allergies/Adverse Reactions: Allergies Allergy/AdvReac Type Severity Reaction Status Date / Time cephalexin Allergy Unknown Verified 11/12/20 07:41 citalopram [From Celexa] Allergy Unknown Verified 11/12/20 07:41 doxycycline Allergy Unknown Verified 11/12/20 07:41 fluticasone [From Flonase] Allergy Unknown Verified 11/12/20 07:41 meperidine [From Demerol] Allergy Unknown Verified 11/12/20 07:41 Penicillins Allergy Unknown Verified 11/12/20 07:41 Sulfa (Sulfonamide Allergy Unknown Verified 11/12/20 07:41 Antibiotics) aspirin AdvReac Emesis Verified 11/12/20 07:41 scotch broom Allergy Unknown Uncoded 11/12/20 07:41 - Social History Does the pt smoke?: No Smoking Status: Never smoker Does the pt drink ETOH?: No Does the pt have substance abuse?: No - Immunizations Immunizations are current?: Yes - POLST Patient has POLST: No PD ED PE NORMAL - Vitals Vital signs reviewed: Yes - General General: Well developed/nourished. No: Alert and oriented X 3 (alert and conversant; oriented to person and place. ) - HEENT HEENT: Atraumatic - Neck Neck: Supple, no meningeal sign, No bony TTP - Cardiac Cardiac: RRR, No murmur - Respiratory Respiratory: Clear bilaterally, Other (no chestwall tenderness) - Abdomen Abdomen: Soft, Non tender - Back Back: No CVA TTP, Other (Some tenderness in the upper thoracic area. She is tender in the thoracolumbar area and the soft tissue. No obvious deformity. Sensation and motor exam is normal and all 4 extremities.) - Derm Derm: Normal color, Warm and dry - Extremities Extremities: Normal ROM s pain (she says lifting legs does cause some pain in lower back though. ) - Neuro Neuro: No motor deficit, No sensory deficit, Normal speech Results - Vitals Vitals: Vital Signs - 24 hr 11/12/20 11/12/20 11/12/20 07:00 07:42 08:58 Temperature 36.2 C L Heart Rate 70 64 64 Respiratory 18 17 16 Rate Blood Pressure 173/93 H 166/70 H 140/84 H O2 Saturation 97 96 97 11/12/20 09:59 Temperature 37.0 C Heart Rate 74 Respiratory 15 Rate Blood Pressure 155/72 H O2 Saturation 100 Oxygen O2 Source Room air - Labs Labs: Laboratory Tests 11/12/20 11/12/20 11/12/20 07:50 07:50 07:50 WBC 6.9 RBC 3.88 L Hgb 12.0 Hct 37.8 MCV 97.4 MCH 30.9 MCHC 31.7 L RDW 16.0 H Plt Count 186 MPV 10.3 Neut # (Auto) 4.9 Lymph # (Auto) 1.2 L [place] # (Auto) 0.5 Eos # (Auto) 0.2 Baso # (Auto) 0.1 Absolute Nucleated RBC 0.00 Nucleated RBC % 0.0 Sodium 138 Potassium 5.3 H Chloride 101 Carbon Dioxide 25 Anion Gap 12.0 BUN 37 H Creatinine 1.3 H Estimated GFR (MDRD) 39 L Glucose 134 H Lactic Acid 1.1 Calcium 9.9 - Rads (name of study) cervical/thoracic/lumbar CT Radiology: Prelim report reviewed, Discussed with rads (mild anterior lower endplate compression T1. Other areas with arthritic and chronic changes. ), See rad report PD MEDICAL DECISION MAKING - ED course Complexity details: reviewed old records, reviewed results (culture results not yet available. ), d/w patient Departure - Departure Disposition: 01 Home, Self Care Clinical Impression: Compression fx, thoracic spine Qualifiers: Encounter type: initial encounter Thoracic vertebra fracture level: T1 Qualified Code(s): S22.010A - Wedge compression fracture of first thoracic vertebra, initial encounter for closed fracture Condition: Stable Record reviewed to determine appropriate education?: Yes Instructions: ED Fx Comp Vertebral Follow-Up: Danielle Izaguirre DO [Primary Care Provider] - Comments: Your blood tests are normal today as well with a normal white count. Your potassium level is slightly elevated but otherwise your chemistries are good. No signs of significant infection or sepsis. The CT scans of your spine show arthritis through much of it and particularly the low back where you are hurting. There is a mild compression deformity at the T1 (the upper part of the thoracic spine), where you are having just milder pain. This is a mild deformity and would be treated with just pain medication. Activity as tolerated based on comfort. Continue with your Tylenol extra strength 3 times a day regularly. Continue your other usual medications as well. Discharge Date/Time: 11/12/20 10:37
[2020-11-12] MEDS ORDERED: ACETAMINOPHEN 325 MG TABLET PO STA (07:26)
[2020-11-12] MEDS ORDERED: KETOROLAC 30 MG/ML VIAL IM STA (07:26)
[2020-11-12 07:55] LABS: BASOPHILS # (AUTO) 0.1 10^3/uL (0.0-0.1); BASOPHILS % (AUTO) 0.9 %; EOSINOPHILS # (AUTO) 0.2 10^3/uL (0.0-0.7); EOSINOPHILS % (AUTO) 2.2 %; HCT - HEMATOCRIT 37.8 % (37.0-47.0); LYMPHOCYTES # (AUTO) 1.2 10^3/uL (1.5-3.5); LYMPHOCYTES % (AUTO) 17.4 %; MEAN CORPUSCULAR HEMOGLOBIN 30.9 pg (27.0-31.0); MEAN CORPUSCULAR HGB CONC 31.7 g/dL (32.0-36.0); MEAN CORPUSCULAR VOLUME 97.4 fL (81.0-99.0); MEAN PLATELET VOLUME 10.3 fL (7.9-10.8); MONOCYTES # (AUTO) 0.5 10^3/uL (0.0-1.0); MONOCYTES % (AUTO) 7.3 %; NEUTROPHILS # (AUTO) 4.9 10^3/uL (1.5-6.6); NEUTROPHILS % (AUTO) 71.5 %; PLT - PLATELET COUNT 186 10^3/uL (130-450); RED BLOOD COUNT 3.88 10^6/uL (4.20-5.40); WHITE BLOOD COUNT 6.9 x10^3/uL (4.8-10.8)
[2020-11-12 08:04] LABS: CALCIUM 9.9 mg/dL (8.5-10.3); CREATININE 1.3 mg/dL (0.4-1.0); POTASSIUM 5.3 mmol/L (3.5-5.0)
--- NOTE | 2020-11-12 08:24 | CT Report ---
PROCEDURE: LUMBAR SPINE WO INDICATIONS: fall with neck and back pain TECHNIQUE: Noncontrast 3 mm thick sections acquired from the T12 level to the sacrum. Sagittal and coronal refo rmats were constructed. For radiation dose reduction, the following was used: automated exposure co ntrol, adjustment of mA and/or kV according to patient size. COMPARISON: None. FINDINGS: Image quality: Excellent. Bones: Grade 1 anterolisthesis of L4 on L5, degenerative in nature, measuring 6 mm. No acute vertebra l body compression fractures. No suspicious lytic or blastic bony lesions. Central spinal caliber i s of normal overall caliber. No pars defects. T12-L1: No canal stenosis or foraminal stenosis. L1-L2: No canal stenosis or foraminal stenosis. L2-L3: No canal stenosis or foraminal stenosis. L3-L4: Disc bulge. Facet hypertrophy. Mild canal stenosis. No foraminal stenosis. L4-L5: Grade 1 anterolisthesis of L4 on L5. Diffuse disc bulge. Facet and ligament hypertrophy. Moder ate canal stenosis. L5-S1: Normal in appearance. Soft tissues: No retroperitoneal masses or hematomas. Borderline aneurysmal dilatation of the abdomi nal aorta, measuring 3 cm. Extensive atherosclerotic calcifications. Probable staghorn calculus of ri ght kidney. Abnormal appearance of left kidney. IMPRESSION: 1. No evidence acute compression fracture of the lumbar spine. 2. Diffuse degenerative change. 3. Canal stenosis is mild at L3-L4 and moderate at L4-L5. 4. Staghorn calculus, right kidney. Abnormal appearing left kidney. 5. Atherosclerosis. 6. Mild abdominal aortic aneurysm. Above discussed with Bruno Buchanan MD at the time of dictation on 11/12/2020 at 0723 hours Tati montaño Reviewed by: Basilio Menendez MD on 11/12/2020 7:23 AM [facility] Approved by: Basilio Menendez MD on 11/12/2020 7:23 AM [facility] Station ID: [id number]
--- NOTE | 2020-11-12 08:25 | CT Report ---
PROCEDURE: THORACIC SPINE WO INDICATIONS: fall with neck and back pain TECHNIQUE: Noncontrast 3 mm thick sections acquired through the region of interest in the thoracic spine. Sagit sincere and coronal reformats were then constructed. For radiation dose reduction, the following was used : automated exposure control, adjustment of mA and/or kV according to patient size. COMPARISON: None. FINDINGS: Image quality: Excellent. Bones: Probable acute T1 inferior endplate compression fracture. No other fractures or dislocations i dentified. Diffuse degenerative change. S-shaped thoracolumbar scoliotic curvature. No suspicious scl erotic or lytic bony lesions. Central spinal canal is of normal overall caliber. Soft tissues: No paravertebral masses or hematomas. Visualized posteromedial lungs appear clear. C entrilobular emphysema. IMPRESSION: 1. Probable acute T1 inferior endplate compression fracture. 2. Diffuse degenerative change, S-shaped thoracolumbar scoliotic curvature. 3. Centrilobular emphysema. Above discussed with Bruno Buchanan MD at the time of dictation on 11/12/2020 [facility]23 [facility] Reviewed by: Basilio Menendez MD on 11/12/2020 7:24 AM [facility] Approved by: Basilio Menendez MD on 11/12/2020 7:24 AM [facility] Station ID: [id number]
--- NOTE | 2020-11-12 08:25 | CT Report ---
PROCEDURE: CERVICAL SPINE WO INDICATIONS: fall with neck and back pain TECHNIQUE: Noncontrast 3 mm thick sections acquired from the skull base to the T4 level. Sagittal and coronal r eformats were then constructed. For radiation dose reduction, the following was used: automated exp osure control, adjustment of mA and/or kV according to patient size. COMPARISON: None. FINDINGS: Image quality: Excellent. Bones: There is an inferior endplate compression fracture of T1, which may be acute. No other acute f ractures or dislocations noted. Visualized superior ribs are intact. Severe cervical spondylosis. Se danisha disc height loss and anterior osteophytes and uncovertebral joint hypertrophy are present at C4 C5-C6 C7. There is reversal of the normal lordotic curve of the cervical spine. There is trace degene rative anterolisthesis of C3 on C4. There is multilevel cervical facet arthropathy. Soft tissues: Prevertebral soft tissues are normal in thickness. No paravertebral hematomas. No ap ical pneumothoraces. Centrilobular emphysema. Dense atherosclerotic carotid calcifications and verteb ral artery calcifications. IMPRESSION: 1. An inferior endplate compression fracture of T1 may be acute. 2. Advanced cervical spondylitic change. 3. Advanced ASCVD. 4. Centrilobular emphysema. Above discussed with Burno Buchanan MD at the time of dictation on 11/12/2020 at 0723 hours Tati montaño Reviewed by: Basilio Menendez MD on 11/12/2020 7:24 AM [place] Approved by: Basilio Menendez MD on 11/12/2020 7:24 AM [facility] Station ID: [id number]
[2020-11-12 10:00] VITALS: BP 155/72
== END 2020-11-12 10:37 | disposition home or self-care (01) ==
LOC: EDUNIT# → ED 06:56
DX: S22.010A Wedge compression fracture of first thoracic vertebra, initial encounter for closed fracture (principal); W18.30XA Fall on same level, unspecified, initial encounter; Z91.81 History of falling; Y92.199 Unspecified place in other specified residential institution as the place of occurrence of the external cause
CPT/HCPCS: 36415; 72125; 72128; 72131; 80048; 83605; 85025; 96372; 99284; A9270

== ENCOUNTER 2021-10-15 09:36 | Outpatient (CLI) | payer MEDICARE, OTHER | END 2021-10-15 09:37 | disposition critical access hospital (66) | LOC: EMS 09:36 | DX: M25.551 Pain in right hip (principal); M25.552 Pain in left hip; M54.50 Low back pain, unspecified; R41.0 Disorientation, unspecified; W18.30XA Fall on same level, unspecified, initial encounter; Y92.099 Unspecified place in other non-institutional residence as the place of occurrence of the external cause | CPT/HCPCS: A0425; A0429 ==

== ENCOUNTER 2021-10-15 09:51 | Emergency (ER) | payer MEDICARE, OTHER ==
--- NOTE | 2021-10-15 10:07 | ED Physician Documentation ---
History of Present Illness - Stated complaint Stated Complaint: GLF - Chief complaint Chief Complaint: Trauma Ch/Bk - History obtained from History obtained from: Patient, EMS - Additonal information Additional information: The patient comes to the emergency department chief complaint of bilateral hip pain after fall yesterday. The patient is a resident at [facility] and states that she has frequent falls. She states that she only falls if "someone shoves her". The patient according to EMS conversation with staff was found down after an unwitnessed fall. She did not appear to have any head trauma and did not have any initial complaints when they found her yesterday. Patient was not felt to been down for a very long time. Staff reported patient is at mental baseline and normally walks with a walker. She has dementia, but is generally conversant. The patient was complaining of some bilateral hip and low back pain this morning with ambulation, so she was brought to the emergency department. Medics state that when they got her onto the stretcher, she was able to stand up from the bed and pivot and had no complaints. Patient points to some pain over her left trapezius distribution between the neck and shoulder. No other complaints at this time. Review of Systems Ten Systems: 10 systems reviewed and negative Constitutional: reports: Reviewed and negative Eyes: reports: Reviewed and negative Ears: reports: Reviewed and negative Nose: reports: Reviewed and negative Throat: reports: Reviewed and negative Cardiac: reports: Reviewed and negative Respiratory: reports: Reviewed and negative GI: reports: Reviewed and negative : reports: Reviewed and negative Skin: reports: Reviewed and negative Musculoskeletal: reports: Other (Neck/shoulder pain) Neurologic: reports: Reviewed and negative Psychiatric: reports: Reviewed and negative Endocrine: reports: Reviewed and negative Immunocompromised: reports: Reviewed and negative PD PAST MEDICAL HISTORY - Past Medical History Cardiovascular: Hypertension Respiratory: COPD Neuro: Dementia Endocrine/Autoimmune: HyPOthyroidism GI: Other [employer]: None : Incontinence, Renal insuffiency HEENT: Chronic hearing loss Psych: Anxiety, Panic attacks Musculoskeletal: Osteoporosis, Gout, Other Derm: None - Past Surgical History Past Surgical History: Yes General: Hiatal hernia repair /[employer]: Hysterectomy, Mastectomy HEENT: Cataracts - Present Medications Home Medications: Ambulatory Orders Medication Instructions Recorded Confirmed Simvastatin 40 mg PO QPM 10/24/18 11/12/20 allopurinoL [Allopurinol] 200 mg PO DAILY 10/24/18 11/12/20 atenoloL [Atenolol] 50 mg PO DAILY 10/24/18 11/12/20 Trospium Chloride 20 mg PO DAILY 03/30/20 11/12/20 Cetirizine [ZyrTEC] 5 mg PO DAILY 06/22/20 11/12/20 Levothyroxine [Synthroid] 75 mcg PO QDAC #30 tablet 06/29/20 11/12/20 Telmisartan [Micardis] 40 mg DAILY 11/10/20 11/12/20 Acetaminophen [Acetaminophen Extra 500 mg PO Q8HR 11/12/20 11/12/20 Strength] Alendronate [Fosamax] 70 mg PO Q7D 11/12/20 11/12/20 Magnesium Hydroxide [Milk of 5 ml PO DAILY PRN 11/12/20 11/12/20 Magnesia] Melatonin 6 mg PO HS 11/12/20 11/12/20 Multivitamin W/Minerals [Theragran 1 each PO DAILY 11/12/20 11/12/20 M] Nitrofurantoin Macrocrystal 100 mg PO BID 11/12/20 11/12/20 [Macrodantin] Omeprazole 40 mg PO DAILY 11/12/20 11/12/20 Senna [Senokot] 1 tab PO DAILY 11/12/20 11/12/20 - Allergies Allergies/Adverse Reactions: Allergies Allergy/AdvReac Type Severity Reaction Status Date / Time cephalexin Allergy Unknown Verified 11/12/20 07:41 citalopram [From Celexa] Allergy Unknown Verified 11/12/20 07:41 doxycycline Allergy Unknown Verified 11/12/20 07:41 fluticasone [From Flonase] Allergy Unknown Verified 11/12/20 07:41 meperidine [From Demerol] Allergy Unknown Verified 11/12/20 07:41 Penicillins Allergy Unknown Verified 11/12/20 07:41 Sulfa (Sulfonamide Allergy Unknown Verified 11/12/20 07:41 Antibiotics) aspirin AdvReac Emesis Verified 11/12/20 07:41 scotch broom Allergy Unknown Uncoded 11/12/20 07:41 - Social History Does the pt smoke?: No Smoking Status: Never smoker Does the pt drink ETOH?: No Does the pt have substance abuse?: No - Immunizations Immunizations are current?: Yes - POLST Patient has POLST: No PD ED PE NORMAL - Vitals Vital signs reviewed: Yes - General General: No acute distress, Well developed/nourished, Other (Alert, conversant, and answers questions appropriately.) - HEENT HEENT: Atraumatic, PERRL, EOMI, Moist mucous membranes - Neck Neck: No bony TTP, Other (Tenderness, mild, over left trapezius distribution.) - Cardiac Cardiac: RRR, No murmur, Strong equal pulses - Respiratory Respiratory: No respiratory distress, Clear bilaterally - Abdomen Abdomen: Soft, Non tender, Non distended - Back Back: No spinal TTP - Derm Derm: Normal color, Warm and dry, No rash - Extremities Extremities: No deformity, No edema, No calf tenderness / cord, Other (No tenderness over hips or pelvis. Moderately limited range of motion of hip passively, secondary to stiffness and mild pain.) - Neuro Neuro: Alert and oriented X 3 - Psych Psych: Normal mood, Normal affect Results - Vitals Vitals: Vital Signs - 24 hr 10/15/21 10/15/21 10/15/21 09:57 10:12 12:03 Temperature 37.1 C Heart Rate 71 70 65 Respiratory 18 18 18 Rate Blood Pressure 155/78 H 141/100 H 153/72 H O2 Saturation 99 100 96 Oxygen O2 Source Room air - Rads (name of study) X-rays of hips and pelvis Radiology: Final report received, EMP read indepedently, See rad report (No acute findings) PD MEDICAL DECISION MAKING - ED course Complexity details: reviewed results, re-evaluated patient, considered differential, d/w patient ED course: Patient was worked up with x-rays of both hips and the pelvis. She was fairly well-appearing in the emergency department, and there is no evidence of head trauma. Additionally, she had no tenderness of her cervical spine. The patient's x-rays were unremarkable for acute findings. She was deemed stable for discharge, as she was very well-appearing otherwise. She has been discharged with the usual indications for return. Departure - Departure Disposition: 01 Home, Self Care Clinical Impression: Fall from ground level Condition: Stable Instructions: Falls Prevent Safe Cane Walker Comments: Arm is x-ray series looks good today. Her physical exam is reassuring and there is no evidence of any fracture in the pelvis, hips, or spine. Additionally, she does not have any evidence of head injury and is mentating well. Please have her follow-up with her primary care physician as needed. Discharge Date/Time: 10/15/21 13:38
--- NOTE | 2021-10-15 11:01 | XRAY Report ---
PROCEDURE: Hips 2V BILAT INDICATIONS: fall/pain TECHNIQUE: 3 view(s) of the hip were acquired, including an AP view of the pelvis as well as lateral views of each hip. COMPARISON: Correlation is made with overlapping portions of lumbar spine CT, 11/12/2020. Correlation is also made with abdomen plain film, 11/13/2017 FINDINGS: Bones: No fractures or dislocations. No suspicious bony lesions. The visualized pelvic ring appear s intact. Age-appropriate degenerative changes are seen. Soft tissues: No suspicious soft tissue calcifications or masses. Atherosclerotic calcification is seen. A left mid pelvis clip is seen inferiorly. IMPRESSION: No displaced fracture is seen on these plain films. Please correlate with focal tenderness. If there is point tenderness (or other clinical concern for a fracture not seen on these plain films) then please consider a dedicated CT study or a short term fo llow up plain film series for further evaluation. Reviewed by: Michael Carrion MD on 10/15/2021 10:00 AM [facility] Approved by: Michael Carrion MD on 10/15/2021 10:00 AM [facility] Station ID: [id number]
[2021-10-15 12:57] VITALS: BP 153/72
== END 2021-10-15 13:38 | disposition home or self-care (01) ==
LOC: EDBD → EDUNIT# → ED 09:51
DX: M25.551 Pain in right hip (principal); M25.552 Pain in left hip; M54.50 Low back pain, unspecified; M54.2 Cervicalgia; W18.30XA Fall on same level, unspecified, initial encounter; Y92.129 Unspecified place in nursing home as the place of occurrence of the external cause; R29.6 Repeated falls; F03.90 Unspecified dementia, unspecified severity, without behavioral disturbance, psychotic disturbance, mood disturbance, and anxiety; I10 Essential (primary) hypertension
CPT/HCPCS: 99283

== ENCOUNTER 2022-11-25 08:00 | Outpatient (CLI) | payer MEDICARE, OTHER | END 2022-11-25 23:59 | disposition home or self-care (01) | LOC: LAB.R 08:00 | PROVIDERS: ATTEND Nurse Practitioner Gerontology | DX: N75.0 Cyst of Bartholin's gland (principal); L73.2 Hidradenitis suppurativa | CPT/HCPCS: 87070; 87077; 87181; 87205 ==